=== PATIENT | male | born 1955 | race Caucasian/White ===

== ENCOUNTER → 2019-05-30 08:24 | Outpatient (BNVA) | payer MEDICARE, SELFPAY | PROVIDERS: Family Provider Nurse Practitioner; PCP Nurse Practitioner; Visit Provider Anesthesiology | DX: G89.29 Other chronic pain (principal); M54.41 Lumbago with sciatica, right side; M54.42 Lumbago with sciatica, left side; Z79.891 Long term (current) use of opiate analgesic | CPT/HCPCS: 99213; 99214 ==

== ENCOUNTER → 2019-06-18 07:59 | Outpatient (BNVA) | payer MEDICARE, SELFPAY | PROVIDERS: Family Provider Nurse Practitioner; PCP Nurse Practitioner; Visit Provider Nurse Practitioner | DX: L98.9 Disorder of the skin and subcutaneous tissue, unspecified (principal) | CPT/HCPCS: 88305 ==

== ENCOUNTER → 2019-07-27 08:17 | Outpatient (BNVA) | payer MEDICARE, SELFPAY | PROVIDERS: Family Provider Nurse Practitioner; PCP Nurse Practitioner; Visit Provider Nurse Practitioner | DX: Z76.89 Persons encountering health services in other specified circumstances (principal) | CPT/HCPCS: 99212 ==

== ENCOUNTER 2019-08-27 12:57 | Outpatient (CLI) | payer MEDICARE, SELFPAY ==
--- NOTE | 2019-08-27 12:30 | CT_ITS ---
WS: [id number] CT HEAD TECHNIQUE: Noncontrast and contrast-enhanced CT of the head. CLINICAL INFORMATION: facial edema and caries COMPARISON: CT June 28, 2015 DLP: 1984.[address] scans at [facility] use at least one of these dose optimization techniques: automat ed exposure control; mA and/or kV adjustment per patient size (includes targeted exams where dose is matched to clinical indication); or iterative reconstruction. FINDINGS: No evidence of intracranial hemorrhage or mass effect. Ventricular system and basal cisterns are dias nt. Palpable marker overlying the left frontal calvarium. No evidence of subcutaneous mass or lesion in this location. Mild soft tissue edema involving the left frontal scalp and supraorbital/periorbital soft tissues, le ft greater than right. Recommend correlation for left periorbital cellulitis. Partially visualized et hmoid air cells are well aerated. Mastoid air cells are well aerated. Mild small vessel changes. Mild parenchymal volume loss. Basal cisterns are patent. Fourth ventricle is patent. No abnormal intracranial enhancement. CT/CT head wo/w con [id number] IMPRESSION: 1. Left facial and left greater than right periorbital soft tissue edema likel y due to cellulitis. Recommend clinical correlation. 2. No drainable abscess or fluid collection. 3. Visualized paranasal sinuses are well aerated. 4. Mild small vessel changes with mild parenchymal volume loss.
[2019-08-27 13:42] LABS: Blood Urea Nitrogen 17 mg/dL (8-23); Glomerular Filtration Rate 50.9 mL/min (90-130)
[2019-08-27] MEDS: iodixanol 320 mg/mL 100mL Btl IV (13:55)
== END 2019-08-27 12:58 | disposition home or self-care (01) ==
LOC: RADWPI 13:00
PROVIDERS: Family Provider Nurse Practitioner; PCP Nurse Practitioner; Visit Provider Nurse Practitioner
DX: K02.9 Dental caries, unspecified (principal); R60.0 Localized edema
CPT/HCPCS: 70470; 82565; 84520; 85025; Q9967

== ENCOUNTER → 2019-09-19 09:07 | Outpatient (BNVA) | payer MEDICARE, SELFPAY | PROVIDERS: Family Provider Nurse Practitioner; PCP Nurse Practitioner; Visit Provider Nurse Practitioner | DX: G89.29 Other chronic pain (principal); M54.41 Lumbago with sciatica, right side; M54.42 Lumbago with sciatica, left side; F17.210 Nicotine dependence, cigarettes, uncomplicated; Z79.891 Long term (current) use of opiate analgesic | CPT/HCPCS: 99213 ==

== ENCOUNTER 2019-10-12 18:17 | Inpatient (IN) | payer MEDICARE, SELFPAY ==
[2019-10-12 18:29] VITALS: BP 122/74; PULSE 81; RESP 18; TEMP 37.1; O2SAT 98; BMI 26.7
[2019-10-12 20:15] LABS: Basophils % 0.3 %; Eosinophils # 0.4 10^3/uL (0.0-0.8); Eosinophils % 5.3 %; Hematocrit 45.5 % (42.0-52.0); Hemoglobin 15.1 g/dL (11.7-16.6); Lymphocytes # 1.9 10^3/uL (0.8-4.8); Lymphocytes % 27.7 %; Mean Corpuscular HGB Conc 33.2 g/dL (30.0-36.0); Mean Corpuscular Hemoglobin 30.2 pg (28.0-34.0); Mean Platelet Volume 10.2 fL (7.4-10.4); Monocytes # 0.3 10^3/uL (0.2-0.9); Monocytes % 4.6 %; Neutrophils # 4.3 10^3/uL (1.8-7.7); Nucleated Red Blood Cells % 0 %; Platelet Count 239 10^3/cmm (130-400)
[2019-10-12 20:33] LABS: Alanine Aminotransferase 16 U/L (0-41); Albumin Level 4.4 g/dL (3.5-5.2); Alkaline Phosphatase 58 IU/L (40-130); Anion Gap 16.3 (5-19); Aspartate Amino Transferase 18 U/L (0-40); Blood Urea Nitrogen 13 mg/dL (8-23); C Reactive Protein 8.1 mg/L (0.0-4.9); Calcium 9.1 mg/dL (8.5-10.5); Carbon Dioxide 27 mmol/L (22-29); Chloride 99 mmol/L (98-107); Glomerular Filtration Rate 50.9 mL/min (90-130); Glucose 98 mg/dL (65-115); Osmolality Calculated 282 mOsm/kg (285-295); Potassium 4.3 mmol/L (3.5-5.1); Sodium 138 mmol/L (136-145); Total Bilirubin 0.4 mg/dL (0.15-1.2); Total Protein 7.4 g/dL (6.6-8.7)
--- NOTE | 2019-10-12 20:48 | W.ED.SKABFB ---
HPI - Skin/Abscess/Foreign Bdy General: Chief complaint: Skin/Abscess/Foreign Body Stated complaint: arm swelling Time Seen by Provider: 10/12/19 20:16 Source: patient Mode of arrival: ambulatory Limitations: no limitations History of Present Illness: HPI narrative: Patient is a very nice 64-year-old male who presents to ED today with complaints of infection to his left arm. Patient tells me he began noticing redness to the left arm this morning. He states he marked the linear area of erythema around 6 AM and it was noted to his mid forearm. By 4 PM it had spread past his elbow and has continued to spread since then. Patient reports his arm feels sore. He did notice a small little spot to his left hand that he believes might be a spider bite. Patient denies fevers, chills, body aches, nausea/vomiting. Onset (ago): hour(s) Tetanus up to date: yes Location: LUE Quality: burning Relieving factors: none Exacerbating factors: none Context: other (possible insect bite) Associated symptoms: Deny chills, fever(s), nausea or vomiting Treatments prior to arrival: none Review of Systems Const: Denies: fever(s), chills, body aches, fatigue or malaise Card: Denies: chest pain Resp: Denies: dyspnea GI: Denies: nausea or vomiting Musc: Reports: extremity pain Skin/Breast: Reports: other (red streaking to L UE) Neuro: Denies: numbness in extremities, weakness in extremities or sensory changes [facility] ED PFSH: Medical History (Updated 10/12/19 @ 20:59 by VANCE Partida) Allergic rhinitis due to pollen Atherosclerotic heart disease of [place] coronary artery without angina pectoris Chronic kidney disease, 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 Chronic obstructive pulmonary disease, unspecified Dyslipidemia Encounter for long-term use of opiate analgesic Essential (primary) hypertension Opioid contract exists Surgical History (Updated 09/27/19 @ 13:42 by Darin Aguilar MD) H/O eye surgery Stented coronary artery Family History Other Cancer Diabetes Social History (Updated 09/27/19 @ 13:17 by Sierra Mason RN) Smoking and tobacco status: current every day smoker Quit status (tobacco): has quit using tobacco Former quit date comment: AUGUST 2019 Second hand smoke exposure: Yes Smoking risk assessment/counseling performed?: Yes Alcohol intake: never Desire information about alcohol rehabilitation?: No Counseling given: No Desire information about substance/drug rehabilitation?: No Counseling given: No Adopted: No Caregiver/support person: No Lives independently: Yes Household members: significant other and children Housing: House Marital status: / service: No Current occupational status: disabled History of recent travel: No Current gender identity: Male Physical Exam Const: COMMON NORMALS: no acute distress, average body habitus, patient oriented x3, no limitations, healthy appearing, alert and well nourished Resp: COMMON NORMALS: normal respiratory effort and clear to auscultation bilaterally AUSCULTATION: clear to auscultation bilaterally Cardio: COMMON NORMALS: regular rate and regular rhythm RATE: regular rate RHYTHM: regular rhythm Extremity: OTHER: pt with small puncture li to L hand that could represent insect/spider bite; pt has lymphangitis streaking up his arm almost to the axilla Neuro: COMMON NORMALS: patient oriented x3 SENSORIUM/ORIENTATION: Yes alert Course Consultations: Consultation #1: Dr. Berumen-recommended adding Zosyn to the Vanc and will admit to obs due to rapid progession of lymphangitis Vital Signs: Vital signs: Vital Signs Temperature 98.8 F 10/12/19 18:29 Pulse Rate 81 10/12/19 18:29 Respiratory Rate 18 10/12/19 18:29 Blood Pressure 122/74 10/12/19 18:29 Pulse Oximetry 98 10/12/19 18:29 MDM - Skin/Abscess/Foreign Bdy MDM Narrative: Medical decision making narrative: Although patient is not tachycardic or febrile and has no leukocytosis, he has extremely rapid spread of his lymphangitis-area is almost already to his axilla in 15 hours; spoke to hospitalist who will admit patient; he is requesting CT of the extremity to rule out gas forming bacteria Lab Data: Labs: Lab Results 10/12/19 10/12/19 10/12/19 Range/Units 20:03 20:03 20:03 WBC 7.0 (4.0-10.0) 10^3/ uL RBC 5.00 (4.1-5.3) 10^6/u L Hgb 15.1 (11.7-16.6) g/dL Hct 45.5 (42.0-52.0) % MCV 91.0 (80-94) fL MCH 30.2 (28.0-34.0) pg MCHC 33.2 (30.0-36.0) g/dL RDW 13.0 (12.1-15.1) % Plt Count 239 (130-400) 10^3/c mm MPV 10.2 (7.4-10.4) fL Neut % (Auto) 62.0 % Lymph % (Auto) 27.7 % Stephenson % (Auto) 4.6 % Eos % (Auto) 5.3 % Baso % (Auto) 0.3 % Neut # (Auto) 4.3 (1.8-7.7) 10^3/u L Lymph # (Auto) 1.9 (0.8-4.8) 10^3/u L Stephenson # (Auto) 0.3 (0.2-0.9) 10^3/u L Eos # (Auto) 0.4 (0.0-0.8) 10^3/u L Baso # (Auto) 0.0 (0.0-0.1) 10^3/u L Nucleated RBC % (a uto) 0 % Nucleated RBCs # 0.0 /100WBC Sodium 138 (136-145) mmol/L Potassium 4.3 (3.5-5.1) mmol/L Chloride 99 (98-107) mmol/L Carbon Dioxide 27 (22-29) mmol/L Anion Gap 16.3 (5-19) BUN 13 (8-23) mg/dL Creatinine 1.4 H (0.7-1.2) mg/dL GFR Calculation 50.9 L (90-130) mL/min Glucose 98 (65-115) mg/dL Calculated Osmolal ity 282 L (285-295) mOsm/k g Lactic Acid (Sepsi s) 1.0 (0.5-2.2) mmol/L Calcium 9.1 (8.5-10.5) mg/dL Total Bilirubin 0.4 (0.15-1.2) mg/dL AST 18 (0-40) U/L ALT 16 (0-41) U/L Alkaline Phosphata se 58 (40-130) IU/L C-Reactive Protein 8.1 H (0.0-4.9) mg/L Total Protein 7.4 (6.6-8.7) g/dL Albumin 4.4 (3.5-5.2) g/dL Globulin 3.0 (1.3-4.6) g/dL Discharge Plan Discharge Patient Disposition: Placed in Observation Clinical Impression: Acute lymphangitis of left upper extremity Condition: Stable Referrals: Anjali Cunha FNP-C [Primary Care Provider] - Coding Level of Care Code ED Security Systems Integrator for Chg Fwd Exam Expanded Problem Focused
--- NOTE | 2019-10-12 21:01 | PM.HP ---
Providers/Chief Complaint Primary Care Provider: Anjali Cunha, MUSIC AGENT-C Chief Complaint: arm swelling History of Present Illness Woodrow Shafer is a 64 year old male who carries history of coronary disease status post 4 stent, chronic kidney disease stage II, COPD, opioid dependence, hypertension, no history of diabetes came in after noticing progress redness of his arm. Patient is stating that today he woke up around 6:30 AM and noticed swelling of his left wrist with red streaks extending up to midportion of forearm, he noticed pruritus with that as well. There is a small bite li at dorsum of his left hand. He thinks it was a spider bite. Around 4:30 PM the red streaks progressed and extended beyond his left elbow at that time he made decision to come to the ED. He did not notice any fever, nausea, vomiting, chills. Diagnostics in the ER revealed normal white count normal lactic acid, I have requested CT of his left arm to rule out gas gangrene, necrotizing fasciitis because of progressive cellulitis Started him on vancomycin and Zosyn, blood cultures received Review of records: Multiple visits to the PCP for dental caries, eyebrow swelling, progressing towards his forehead, 08/27/2019 CT head was done which showed left facial and periorbital soft tissue edema without cellulitis no collection of drainable abscess. He finished 7 days of Bactrim. For his back pain he saw a chiropractor who did not recommend trigger injections because of his Plavix use. He has seen Dr. Aguilar who did not modify his medications Review of Systems Const: Reports: chills; Denies: fever(s), body aches, fatigue or malaise Eyes: Denies: change in vision ENMT: Denies: throat pain Card: Denies: chest pain Resp: Denies: dyspnea GI: Denies: abdominal pain : Denies: flank pain Musc: Denies: neck pain Skin/Breast: Reports: skin pain, skin tenderness, skin swelling, sores, changing lesions, dry skin and striae Neuro: Denies: headache(s) Psych: Denies: anxiety or depression Endo: Denies: polyuria or cold intolerance Jose Angel/Lymph: Denies: easy bruising All/Imm: Denies: urticaria Medications/Allergies Home Medications Medication Instructions Recorded Confirmed Last Taken Type celecoxib 200 mg capsule 200 mg PO QDAY #90 cap 05/19/19 09/27/19 Unknown Rx citalopram 20 mg tablet 20 mg PO .at bedtime #90 tab 05/19/19 09/27/19 Unknown Rx clopidogrel 75 mg tablet 75 mg PO QDAY #90 tab 05/19/19 09/27/19 Unknown Rx epinephrine 0.3 mg/0.3 mL 0.3 mg IM ONCE PRN #2 each 05/19/19 09/27/19 Unknown Rx injection, auto-injector fenofibrate nanocrystallized 145 145 mg PO QDAY #90 tab 05/19/19 09/27/19 Unknown Rx mg tablet metoprolol tartrate 25 mg tablet 12.5 mg PO BID #90 tab 05/19/19 09/27/19 Unknown Rx trazodone 100 mg tablet 100 mg PO .at bedtime #90 tab 05/19/19 09/27/19 Unknown Rx bupropion HCl 150 mg 24 hr tablet, 150 mg PO QAM 05/30/19 09/27/19 Unknown History extended release rosuvastatin 40 mg tablet 40 mg PO QDAY 05/30/19 09/27/19 Unknown History chlorhexidine gluconate 0.12 % 15 ml BUCCAL BID #473 ml 07/02/19 09/27/19 Unknown Rx mouthwash gabapentin 600 mg tablet 600 mg PO BID #180 tab 07/27/19 09/27/19 Unknown Rx nitroglycerin 0.4 mg sublingual 0.4 mg SUBLINGUAL Q5M PRN 90 Days 09/05/19 09/27/19 Unknown Rx tablet #25 tab baclofen 20 mg tablet 10 mg PO BID PRN #90 tab 09/19/19 09/27/19 Unknown Rx hydrocodone 5 mg-acetaminophen 325 1 tab PO .5 TIMES DAILY PRN 30 09/19/19 09/27/19 Unknown Rx mg tablet Days #150 tab hydrocodone 5 mg-acetaminophen 325 1 tab PO .5 times a day PRN 30 09/19/19 09/27/19 Unknown Rx mg tablet Days #150 tab sildenafil 50 mg tablet 50 mg PO QDAY PRN #10 tab 09/19/19 09/27/19 Unknown Rx Allergies Allergy/AdvReac Type Severity Reaction Status Date / Time venom-wasp Allergy swelling Verified 09/27/19 13:16 PFSH Acute PFSH: Medical History (Updated 10/12/19 @ 22:29 by Ramin Berumen MD) Allergic rhinitis due to pollen Atherosclerotic heart disease of [place] coronary artery without angina pectoris Chronic kidney disease, 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 Chronic obstructive pulmonary disease, unspecified Dyslipidemia Encounter for long-term use of opiate analgesic Essential (primary) hypertension Opioid contract exists Surgical History (Updated 10/12/19 @ 22:29 by Ramin Berumen MD) H/O eye surgery Stented coronary artery Status post for stent Family History Other Cancer Diabetes Social History Smoking and tobacco status: current every day smoker Quit status (tobacco): has quit using tobacco Former quit date comment: AUGUST 2019 Second hand smoke exposure: Yes Smoking risk assessment/counseling performed?: Yes Alcohol intake: never Desire information about alcohol rehabilitation?: No Counseling given: No Desire information about substance/drug rehabilitation?: No Counseling given: No Adopted: No Caregiver/support person: No Lives independently: Yes Household members: significant other and children Housing: House Marital status: / service: No Current occupational status: disabled History of recent travel: No Current gender identity: Male Vitals/I&O/Wt Last Vital Signs Temp 98.8 F 10/12/19 18:29 Pulse 81 10/12/19 18:29 Resp 18 10/12/19 18:29 BP 122/74 10/12/19 18:29 Pulse Ox 98 10/12/19 18:29 Weight last 48 hrs Weight 82.1 kg Physical Exam Narrative: EXAM NARRATIVE: Head to toe examination Elderly male sitting comfortably in his bed Normal hemodynamics Afebrile EOMI, PERRLA Forehead has mild swelling, trace pitting edema, no periorbital swelling or signs of cellulitis Left hand cellulitis dorsal area with a bite li, hyperemic streaks starting from wrist extending up to his left axilla, tender lymph nodes anterior axillary line, skin feels warm mild tenderness around forearm area no active purulent drainage, no dusky appearance, no crepitation noticed able to move his extremities without any vascular compromise Right hand no such plan S1, S2 no tachycardia heart failure Abdomen soft nontender nondistended bowel sound present Neurologically nonfocal exam Appropriate mood and affect Data : 10/12/19 20:03 10/12/19 20:03 Micro: Microbiology 10/12/19 20:03 Blood Culture - Preliminary Blood SPECIMEN COLLECTED 10/12/19 20:06 Blood Culture - Preliminary Blood SPECIMEN COLLECTED A&P Assessment and plan (1) Acute lymphangitis of left upper extremity: Lymphangitis likely streptococcal I do not see any purulent drainage, Progressive cellulitis Would start him on vancomycin and Zosyn I do believe that these are early signs of progressive cellulitis, in order to prevent systemic signs he would need IV antibiotics and prolonged stay in the hospital because streptococcal infection can lead to necrotizing fasciitis if stays untreated Blood cultures obtained, no active systemic signs for now CT scan of forearm requested Status: Acute (2) Cellulitis: Nonpurulent On antibiotics without systemic signs Likely streptococcal infection Of note, he was recently treated for periorbital cellulitis when he experienced eyebrow swelling which progressed towards his forehead, previous CT scan did not reveal any drainable abscess Status: Acute (3) Nicotine dependence: Patient has quit smoking starting today, he is not requesting nicotine replacement therapy for now Status: Acute Attestations Medical Necessity Statement*: Anticipating stay in the hospital cross more than 2 midnights currently needs IV antibiotics because of progressive cellulitis to prevent progression to necrotizing fascitis Time Spent in Patient Care: (>than 50% of time spent in counselling and/or direct pt care on unit). 60 Coding Level of Care Code Acute Equipment Maintenance Superintendent for Ju Harper Diagnoses Acute lymphangitis of left upper extremity L03.124 Cellulitis L03.90 Nicotine dependence F17.200
--- NOTE | 2019-10-12 21:02 | CTR_ITS ---
PROCEDURE INFORMATION: Exam: CT Left Upper Extremity Without Contrast, Forearm Exam date and time: 10/12/2019 9:11 PM Age: 64 years old Clinical indication: Swelling; Arm, lower and wrist; Left; Additional info: Need from hand/wrist to elbow TECHNIQUE: Imaging protocol: CT of the Left upper extremity without contrast was performed. Exam focused on the forearm. Radiation optimization: All CT scans at this facility use at least one of these dose optimization techniques: automated exposure control; mA and/or kV adjustment per patient size (includes targeted exams where dose is matched to clinical indication); or iterative reconstruction. COMPARISON: No relevant prior studies available. FINDINGS: Bones/joints: Normal. No acute fracture or dislocation. Soft tissues: Subcutaneous strandy opacities are seen in the dependent portion of the left forearm likely represents some mild dependent edema. Some low attenuation surrounds the long flexor tendons of the left wrist within the carpal tunnel. A mild tendinitis cannot be excluded. CT/CT wrist LT wo con* [id number] IMPRESSION: 1. Some fluid attenuation seen within the tendon sheath of the long flexor tendons of the left wrist within the carpal tunnel, findings could represent tendonitis. 2. Some subtle subcutaneous edema is seen in the dependent portion of the forearm. TDLP: 961.87 mGy-cm Radiation Dose CTDIVOL = (mGy): DLP = 961.87 (mGy-cm)
[2019-10-12] MEDS: piperacillin-tazobactam 3.375 GM in sodium chloride 0.9% (plus) 50 ML IV (22:23)
[2019-10-12] MEDS: vancomycin 1,000 MG in sodium chloride 0.9% 250 ML 250 MG IV (22:29)
[2019-10-12 22:39] VITALS: BP 108/63; PULSE 64; RESP 16; O2SAT 94
[2019-10-12 23:12] VITALS: BP 117/69; PULSE 75; RESP 16; O2SAT 93
[2019-10-13] VITALS (8 sets, daily range): BP systolic 93–113; BP diastolic 54–67; PULSE 53–64; RESP 16–18; TEMP 36.1–36.9; O2SAT 95–99
--- NOTE | 2019-10-13 00:28 | PC.PHAR ---
Vancomycin is dosed at 1500mg IVPB every 24 hours to produce a predicted trough level of 12.37 (population based pharmacokineti analysis). A trough level has been ordered from the lab to be obtained before the fourth dose to confirm and adjust if needed. The Zosyn is dosed at 3.375gm IVPB every 8 hours, each dose to be infused over 4 hours per extended infusion protocol.
[2019-10-13] MEDS: diphenhydrAMINE 25 mg Capsule PO (00:40)
[2019-10-13] MEDS: heparin 5,000 unit/mL INJ 1 mL 5000 UNIT SUBCUT ×3 (00:40→17:26)
[2019-10-13] MEDS: HYDROcodone-acetaminophen 5-325 mg Tablet 1 TAB PO ×2 (00:41→08:29)
[2019-10-13 01:12] LABS: Estmated Average Glucose 117; Hemoglobin A1C 5.7 % (4.0-6.0)
[2019-10-13 05:27] LABS: Basophils % 0.2 %; Eosinophils # 0.4 10^3/uL (0.0-0.8); Eosinophils % 7.2 %; Hematocrit 42.2 % (42.0-52.0); Lymphocytes # 1.7 10^3/uL (0.8-4.8); Lymphocytes % 32.2 %; Mean Corpuscular HGB Conc 33.2 g/dL (30.0-36.0); Mean Corpuscular Hemoglobin 30.6 pg (28.0-34.0); Mean Corpuscular Volume 92.1 fL (80-94); Mean Platelet Volume 10.9 fL (7.4-10.4); Monocytes # 0.4 10^3/uL (0.2-0.9); Monocytes % 6.6 %; Neutrophils # 2.8 10^3/uL (1.8-7.7); Neutrophils % 53.6 %; Nucleated Red Blood Cells % 0 %; Platelet Count 227 10^3/cmm (130-400); Red Blood Count 4.58 10^6/uL (4.1-5.3); Red Cell Distribution Width 13.2 % (12.1-15.1); White Blood Count 5.3 10^3/uL (4.0-10.0)
[2019-10-13] MEDS: buPROPion XL (24 HR) 150 mg Tablet PO (05:58)
[2019-10-13] MEDS: piperacillin-tazobactam 3.375 GM in sodium chloride 0.9% (plus) 50 ML IV ×3 (05:58→21:03)
[2019-10-13 06:11] LABS: C Reactive Protein 10.7 mg/L (0.0-4.9)
[2019-10-13 06:13] LABS: Anion Gap 16.1 (5-19); Blood Urea Nitrogen 13 mg/dL (8-23); Calcium 8.7 mg/dL (8.5-10.5); Carbon Dioxide 25 mmol/L (22-29); Chloride 102 mmol/L (98-107); Glomerular Filtration Rate 50.9 mL/min (90-130); Glucose 108 mg/dL (65-115); Osmolality Calculated 285 mOsm/kg (285-295); Potassium 4.1 mmol/L (3.5-5.1); Sodium 139 mmol/L (136-145)
[2019-10-13] MEDS: clopidogrel 75 mg Tablet PO (08:29)
[2019-10-13] MEDS: gabapentin 300 mg Capsule 600 MG PO ×2 (08:29→17:26)
[2019-10-13] MEDS: sennosides-docusate Tablet 1 TAB PO (08:30)
[2019-10-13] MEDS: metoprolol tartrate 25 mg Tablet 12.5 MG PO (08:30)
--- NOTE | 2019-10-13 16:25 | P.PN_ITS ---
Subjective Subjective: Interval history: Afebrile, hemodynamically stable, no leukocytosis. Noted bradycardia so will hold BB. Resting in bed, reports intermittent itching and some discomfort and redness persists. Requested nursing staff to demarcate erythema for progression. Patient able to form a fist, move his wrist unrestricted, denies any numbness or tingling in his left arm. Medications: Reviewed: Yes Medication Review Details: Active Medications Generic Name Dose Route Start Last Admin Trade Name Freq PRN Reason Stop Dose Admin Hydrocodone Bitart /Acetaminophen 1 tab 10/13/19 00:06 10/13/19 08:29 [place] 5-325 Mg PO 1 tab Q6H PRN Administration pain Bupropion HCl 150 mg 10/13/19 06:00 10/13/19 05:58 Wellbutrin Xl (2 4 Hr) PO 150 mg QAM CHRIS Administration Clopidogrel Bisulf ate 75 mg 10/13/19 00:06 10/13/19 08:29 Plavix PO 75 mg DAILY CHRIS Administration Gabapentin 600 mg 10/13/19 09:00 10/13/19 08:29 Neurontin PO 600 mg BID CHRIS Administration Heparin Sodium (Be ef Lung) 5,000 unit 10/13/19 00:06 10/13/19 08:31 Heparin SUBCUT 5,000 unit Q8H CHRIS Administration Piperacillin Sod/T azobactam 50 mls @ 12.5 mls /hr 10/13/19 05:00 10/13/19 14:45 Sod 3.375 gm/ So dium Chloride IV 12.5 mls/hr Q8H CHRIS Administration Protocol As Directed Vancomycin HCl 1,5 00 mg/ 250 mls @ 250 mls /hr 10/13/19 11:00 10/13/19 11:20 Sodium Chloride IV 250 mls/hr Q24H CHRIS Administration Protocol As Directed Metoprolol Tartrat e 12.5 mg 10/13/19 09:00 10/13/19 08:30 Lopressor PO 12.5 mg BID CHRIS Administration Senna/Docusate Sod ium 1 tab 10/13/19 09:00 10/13/19 08:30 Senna-S PO 1 tab DAILY CHRIS Administration venom-wasp Allergy (Verified 09/27/19 13:16) swelling Vitals/I&O/Wt Last Vital Signs Temp 97.8 F 10/13/19 15:12 Pulse 58 L 10/13/19 15:12 Resp 18 10/13/19 15:12 BP 102/60 10/13/19 15:12 Pulse Ox 97 10/13/19 15:12 10/13/19 10/13/19 10/13/19 06:59 14:59 22:59 Intake Total 100 / 100 710 / 710 Balance 100 / 100 710 / 710 Weight last 48 hrs Weight 82.1 kg Physical Exam Const: COMMON NORMALS: no acute distress, patient oriented x3 and alert GENERAL APPEARANCE: cooperative and comfortable ORIENTATION/CONSCIOUSNESS: Yes awake HENMT: COMMON NORMALS: normocephalic, atraumatic, hearing grossly normal bilaterally and moist oral mucous membranes HEAD & SCALP: normocephalic and atraumatic TEETH & GINGIVA: Yes caries and Yes poor dentition Eye: COMMON NORMALS: Equal, round and reactive pupils present, EOMs intact bilaterally and conjunctivae normal CONJUNCTIVA: Yes conjunctivae normal PUPIL: Yes Equal, round and reactive pupils present Neck/C-Spine: COMMON NORMALS: full ROM GENERAL: Yes normal visual inspection and Yes trachea midline Chest: CHEST: Yes Symmetrical chest wall rise Resp: COMMON NORMALS: normal respiratory effort, No retractions, No use of accessory muscles and clear to auscultation bilaterally EFFORT & INSPECTION: Yes able to speak in complete sentences, Yes symmetric chest movement and No tachypneic AUSCULTATION: clear to auscultation bilaterally OTHER: -on RA Cardio: COMMON NORMALS: regular rate, regular rhythm, S1 normal heart sound present, S2 normal heart sound present and No murmurs present (Cardio) RATE: regular rate RHYTHM: regular rhythm HEART SOUNDS: S1 normal heart sound present and S2 normal heart sound present GI: COMMON NORMALS: Normal to inspection, nondistended, normoactive bowel sounds present, Soft to palpation and non-tender INSPECTION: Yes central obesity PALPATION: Yes Soft to palpation Extremity: COMMON NORMALS: normal to inspection, full ROM, no clubbing, cyanosis or edema and no pedal edema NARRATIVE EXTREMITY EXAM: -LUE: distinctive erythema and streaking extending from wrist to just below axilla, warm to touch, blanchable erythema, very small puncture sites just distal to medial wrist, no fluctuance. ROM and gross sensation intact. Neuro: COMMON NORMALS: patient oriented x3, moves all extremities, no focal motor deficits, no sensory deficits noted and gait normal SENSORIUM/ORIENTATION: Yes alert Psych: COMMON NORMALS: mental status grossly normal, Normal thought process present, cooperative, normal affect and speech normal SPEECH: Yes normal speech THOUGHT PROCESS: Normal thought process present Skin: COMMON NORMALS: no rashes or lesions noted, no jaundice, no petechiae and no mottling GENERAL SKIN EXAM: no rashes or lesions noted Data : 10/13/19 04:13 10/13/19 04:13 Micro: Microbiology 10/12/19 20:03 Blood Culture - Preliminary Blood SPECIMEN COLLECTED 10/12/19 20:06 Blood Culture - Preliminary Blood SPECIMEN COLLECTED A&P Assessment and plan (1) Acute lymphangitis of left upper extremity: -likely triggered by insect bite -no leukocytosis, afebrile -tendonitis without abscess on CT -pain control as needed -continue IV Vanc/Zosyn -f/u blood cx -neurovascular checks Status: Acute (2) Cellulitis: -noted on LUE -as noted above Status: Acute Qualifiers: Laterality: left Site of cellulitis: extremity Site of cellulitis of extremity: upper extremity Qualified Code(s): L03.114 - Cellulitis of left upper limb (3) Dyslipidemia: -hold statin Status: Chronic (4) Essential (primary) hypertension: -VSS, continue to monitor vital signs Status: Chronic (5) Chronic obstructive pulmonary disease, unspecified: -not oxygen dependent at baseline Status: Chronic Qualifiers: COPD type: unspecified COPD Qualified Code(s): J44.9 - Chronic obstructive pulmonary disease, unspecified (6) Chronic kidney disease, stage 2 (mild): -mild superimposed SARAH -baseline Cr around 1 -continue to monitor renal function, avoid nephrotoxins, renally dose meds Status: Chronic (7) Atherosclerotic heart disease of [place] coronary artery without angina pectoris: -hold BB due to bradycardia -on Plavix Status: Chronic Qualifiers: [place] vs. transplanted heart: [place] heart Qualified Code(s): I25.10 - Atherosclerotic heart disease of [place] coronary artery without angina pectoris (8) Chronic midline low back pain with bilateral sciatica: -pain control as needed Status: Chronic Additional A&P Information -Chronic smoker -DVT ppx with heparin -Dispo: home -Code status: FULL code Attestations Medical Necessity Statement*: Patient requires hospitalization for continued IV antibiotic treatment for left upper extremity cellulitis and acute lymphangitis. Time Spent in Patient Care: Greater than 35 minutes (>than 50% of time spent in counselling and/or direct pt care on unit) . Coding Level of Care Code Acute Bench Worker Binding for [place] Fwd Exam Comprehensive Diagnoses Acute lymphangitis of left upper extremity L03.124 Cellulitis L03.114 Laterality: left Site of cellulitis: extremity Site of cellulitis of extremity: upper extremity Dyslipidemia E78.5 Essential (primary) hypertension I10 Chronic obstructive pulmonary disease, unspecified J44.9 COPD type: unspecified COPD Chronic kidney disease, stage 2 (mild) N18.2 Atherosclerotic heart disease of [place] coronary artery without angina pectoris I25.10 [place] vs. transplanted heart: [place] heart Chronic midline low back pain with bilateral sciatica M54.41; M54.42; G89.29
[2019-10-14] MEDS: heparin 5,000 unit/mL INJ 1 mL 5000 UNIT SUBCUT ×3 (02:46→15:23)
[2019-10-14 03:39] VITALS: BP 118/67; PULSE 56; RESP 20; TEMP 37.2; O2SAT 98
[2019-10-14 04:29] LABS: Basophils % 0.2 %; Eosinophils # 0.3 10^3/uL (0.0-0.8); Eosinophils % 6.8 %; Hematocrit 41.2 % (42.0-52.0); Hemoglobin 13.7 g/dL (11.7-16.6); Lymphocytes # 1.7 10^3/uL (0.8-4.8); Lymphocytes % 35.7 %; Mean Corpuscular HGB Conc 33.3 g/dL (30.0-36.0); Mean Corpuscular Hemoglobin 30.4 pg (28.0-34.0); Mean Corpuscular Volume 91.6 fL (80-94); Mean Platelet Volume 10.9 fL (7.4-10.4); Monocytes # 0.3 10^3/uL (0.2-0.9); Monocytes % 5.9 %; Neutrophils # 2.4 10^3/uL (1.8-7.7); Neutrophils % 51.2 %; Nucleated Red Blood Cells % 0 %; Platelet Count 185 10^3/cmm (130-400); Red Cell Distribution Width 12.9 % (12.1-15.1); White Blood Count 4.7 10^3/uL (4.0-10.0)
[2019-10-14 04:49] LABS: Anion Gap 15.4 (5-19); Blood Urea Nitrogen 18 mg/dL (8-23); Calcium 8.7 mg/dL (8.5-10.5); Carbon Dioxide 24 mmol/L (22-29); Chloride 105 mmol/L (98-107); Glomerular Filtration Rate 50.9 mL/min (90-130); Glucose 98 mg/dL (65-115); Osmolality Calculated 286 mOsm/kg (285-295); Potassium 4.4 mmol/L (3.5-5.1); Sodium 140 mmol/L (136-145)
[2019-10-14] MEDS: piperacillin-tazobactam 3.375 GM in sodium chloride 0.9% (plus) 50 ML IV ×3 (05:52→21:27)
[2019-10-14] MEDS: buPROPion XL (24 HR) 150 mg Tablet PO (05:52)
[2019-10-14 07:43] VITALS: BP 109/74; PULSE 59; RESP 18; TEMP 36.6; O2SAT 96
[2019-10-14] MEDS: gabapentin 300 mg Capsule 600 MG PO ×2 (08:28→17:39)
[2019-10-14] MEDS: sennosides-docusate Tablet 1 TAB PO (08:28)
[2019-10-14] MEDS: clopidogrel 75 mg Tablet PO (08:29)
[2019-10-14 11:05] VITALS: BP 108/63; PULSE 67; RESP 18; TEMP 36.7
--- NOTE | 2019-10-14 13:58 | P.PN_ITS ---
Subjective Subjective: Interval history: Hemodynamically stable, afebrile, no leukocytosis, had 1300 mL urine output overnight, stable renal function. Redness has receded within demarcated area though streaking still extends over entire arm. Denies pain, numbness/tingling, able to move arm and wrist without difficulty. Medications: Reviewed: Yes Medication Review Details: Active Medications Generic Name Dose Route Start Last Admin Trade Name Freq PRN Reason Stop Dose Admin Hydrocodone Bitart /Acetaminophen 1 tab 10/13/19 00:06 10/13/19 08:29 [place] 5-325 Mg PO 1 tab Q6H PRN Administration pain Bupropion HCl 150 mg 10/13/19 06:00 10/14/19 05:52 Wellbutrin Xl (2 4 Hr) PO 150 mg QAM CHRIS Administration Clopidogrel Bisulf ate 75 mg 10/13/19 00:06 10/14/19 08:29 Plavix PO 75 mg DAILY CHRIS Administration Gabapentin 600 mg 10/13/19 09:00 10/14/19 08:28 Neurontin PO 600 mg BID CHRIS Administration Heparin Sodium (Be ef Lung) 5,000 unit 10/13/19 00:06 10/14/19 08:29 Heparin SUBCUT 5,000 unit Q8H CHRIS Administration Piperacillin Sod/T azobactam 50 mls @ 12.5 mls /hr 10/13/19 05:00 10/14/19 05:52 Sod 3.375 gm/ So dium Chloride IV 12.5 mls/hr Q8H CHRIS Administration Protocol As Directed Vancomycin HCl 1,5 00 mg/ 250 mls @ 250 mls /hr 10/13/19 11:00 10/14/19 11:21 Sodium Chloride IV 250 mls/hr Q24H CHRIS Administration Protocol As Directed Metoprolol Tartrat e 12.5 mg 10/13/19 09:00 10/13/19 08:30 Lopressor PO 12.5 mg BID CHRIS Administration Senna/Docusate Sod ium 1 tab 10/13/19 09:00 10/14/19 08:28 Senna-S PO 1 tab DAILY CHRIS Administration venom-wasp Allergy (Verified 09/27/19 13:16) swelling Vitals/I&O/Wt Last Vital Signs Temp 98.1 F 10/14/19 11:05 Pulse 67 10/14/19 11:05 Resp 18 10/14/19 11:05 BP 108/63 10/14/19 11:05 Pulse Ox 96 10/14/19 07:43 10/13/19 10/14/19 10/14/19 22:59 06:59 14:59 Intake Total 290 / 1250 50 / 1300 480 / 480 Output Total 600 / 600 1050 / 1650 Balance -310 / 650 -1000 / -350 480 / 480 Weight last 48 hrs Weight 82.1 kg Physical Exam Const: COMMON NORMALS: no acute distress, patient oriented x3 and alert G ENERAL APPEARANCE: cooperative and comfortable ORIENTATION/CONSCIOUSNESS: Yes awake HENMT: COMMON NORMALS: normocephalic, atraumatic, hearing grossly normal bilaterally and moist oral mucous membranes HEAD & SCALP: normocephalic and atraumatic TEETH & GINGIVA: Yes caries and Yes poor dentition Eye: COMMON NORMALS: Equal, round and reactive pupils present, EOMs intact bilaterally and conjunctivae normal CONJUNCTIVA: Yes conjunctivae normal PUPIL: Yes Equal, round and reactive pupils present Neck/C-Spine: COMMON NORMALS: full ROM GENERAL: Yes normal visual inspection and Yes trachea midline Chest: CHEST: Yes Symmetrical chest wall rise Resp: COMMON NORMALS: normal respiratory effort, No retractions, No use of accessory muscles and clear to auscultation bilaterally EFFORT & INSPECTION: Yes able to speak in complete sentences, Yes symmetric chest movement and No tachypneic AUSCULTATION: clear to auscultation bilaterally OTHER: -on RA Cardio: COMMON NORMALS: regular rate, regular rhythm, S1 normal heart sound present, S2 normal heart sound present and No murmurs present (Cardio) RATE: regular rate RHYTHM: regular rhythm HEART SOUNDS: S1 normal heart sound present and S2 normal heart sound present GI: COMMON NORMALS: Normal to inspection, nondistended, normoactive bowel sounds present, Soft to palpation and non-tender INSPECTION: Yes central obesity PALPATION: Yes Soft to palpation Extremity: COMMON NORMALS: normal to inspection, full ROM, no clubbing, cyanosis or edema and no pedal edema NARRATIVE EXTREMITY EXAM: -LUE: distinctive erythema and streaking extending from wrist to just below axilla which is receding and is less apparent today, warm to touch, blanchable erythema, very small puncture sites just distal to medial wrist, no fluctuance. ROM and gross sensation intact. Neuro: COMMON NORMALS: patient oriented x3, moves all extremities, no focal motor deficits, no sensory deficits noted and gait normal SENSORIUM/ORIENTATION: Yes alert Psych: COMMON NORMALS: mental status grossly normal, Normal thought process present, cooperative, normal affect and speech normal SPEECH: Yes normal speech THOUGHT PROCESS: Normal thought process present Skin: COMMON NORMALS: no rashes or lesions noted, no jaundice, no petechiae and no mottling GENERAL SKIN EXAM: no rashes or lesions noted Data : 10/14/19 03:18 10/14/19 03:18 Micro: Microbiology 10/12/19 20:03 Blood Culture - Preliminary Blood NEGATIVE TO DATE 10/12/19 20:06 Blood Culture - Preliminary Blood NEGATIVE TO DATE A&P Assessment and plan (1) Acute lymphangitis of left upper extremity: -likely triggered by insect bite -no leukocytosis, afebrile -tendonitis without abscess on CT -pain control as needed -continue IV Vanc/Zosyn (day 2); clinically improving. If continued improvement, will plan on d/c with Clindamycin -blood cx: prelim negative -neurovascular checks Status: Acute (2) Cellulitis: -noted on LUE -as noted above Status: Acute Qualifiers: Laterality: left Site of cellulitis: extremity Site of cellulitis of extremity: upper extremity Qualified Code(s): L03.114 - Cellulitis of left upper limb (3) Dyslipidemia: -hold statin Status: Chronic (4) Essential (primary) hypertension: -VSS, continue to monitor vital signs Status: Chronic (5) Chronic obstructive pulmonary disease, unspecified: -not oxygen dependent at baseline Status: Chronic Qualifiers: COPD type: unspecified COPD Qualified Code(s): J44.9 - Chronic obstructive pulmonary disease, unspecified (6) Chronic kidney disease, stage 2 (mild): -mild superimposed SARAH -baseline Cr around 1 -continue to monitor renal function, avoid nephrotoxins, renally dose meds Status: Chronic (7) Atherosclerotic heart disease of [place] coronary artery without angina pectoris: -hold BB due to bradycardia -on Plavix Status: Chronic Qualifiers: [place] vs. transplanted heart: [place] heart Qualified Code(s): I25.10 - Atherosclerotic heart disease of [place] coronary artery without angina pectoris (8) Chronic midline low back pain with bilateral sciatica: -pain control as needed Status: Chronic Additional A&P Information -Chronic smoker -DVT ppx with heparin -Dispo: home -Code status: FULL code Attestations Medical Necessity Statement*: Patient requires hospitalization for continued IV antibiotic therapy secondary to left upper extremity cellulitis. Time Spent in Patient Care: 16 - 35 minutes (>than 50% of time spent in counselling and/or direct pt care on unit) . Coding Level of Care Code Acute Pediatric Associate for g Fwd Exam Comprehensive Diagnoses Acute lymphangitis of left upper extremity L03.124 Cellulitis L03.114 Laterality: left Site of cellulitis: extremity Site of cellulitis of extremity: upper extremity Dyslipidemia E78.5 Essential (primary) hypertension I10 Chronic obstructive pulmonary disease, unspecified J44.9 COPD type: unspecified COPD Chronic kidney disease, stage 2 (mild) N18.2 Atherosclerotic heart disease of [place] coronary artery without angina pectoris I25.10 [place] vs. transplanted heart: [place] heart Chronic midline low back pain with bilateral sciatica M54.41; M54.42; G89.29
[2019-10-14 15:22] VITALS: BP 112/66; PULSE 65; RESP 16; TEMP 36.8; O2SAT 93
--- NOTE | 2019-10-14 18:19 | PC.NURSE ---
Shift summary,required zero pain meds this shift, states feeling much better
[2019-10-14 19:12] VITALS: BP 113/64; PULSE 67; RESP 20; TEMP 36.8; O2SAT 93
[2019-10-15] VITALS: BP 112/68; PULSE 59; RESP 18; TEMP 36.8; O2SAT 93
[2019-10-15] MEDS: heparin 5,000 unit/mL INJ 1 mL 5000 UNIT SUBCUT ×2 (00:37→08:06)
[2019-10-15 04:00] VITALS: BP 115/69; PULSE 59; RESP 20; TEMP 36.8; O2SAT 93
[2019-10-15 04:44] LABS: Anion Gap 15.3 (5-19); Blood Urea Nitrogen 12 mg/dL (8-23); Calcium 9.1 mg/dL (8.5-10.5); Carbon Dioxide 25 mmol/L (22-29); Chloride 104 mmol/L (98-107); Glomerular Filtration Rate 50.9 mL/min (90-130); Glucose 94 mg/dL (65-115); Osmolality Calculated 286 mOsm/kg (285-295); Potassium 4.3 mmol/L (3.5-5.1); Sodium 140 mmol/L (136-145)
[2019-10-15] MEDS: buPROPion XL (24 HR) 150 mg Tablet PO (06:30)
[2019-10-15] MEDS: piperacillin-tazobactam 3.375 GM in sodium chloride 0.9% (plus) 50 ML IV (06:31)
[2019-10-15 07:55] VITALS: BP 109/63; PULSE 62; RESP 18; TEMP 36.7; O2SAT 94
[2019-10-15] MEDS: gabapentin 300 mg Capsule 600 MG PO (08:06)
[2019-10-15] MEDS: clopidogrel 75 mg Tablet PO (08:07)
--- NOTE | 2019-10-15 09:17 | PC.RESP ---
Smoking Cessation packet and a schedule of classes sent to patient.
--- NOTE | 2019-10-15 09:33 | P.DS_ITS ---
Discharge Providers Date of Admission: 10/12/19 22:40 Date of Discharge: October 15, 2019 Attending Provider at Admission: Ramin Berumen MD Attending Provider at Discharge: Shelly Perez MD Primary Care Provider: JOHNNY Swanson Diagnoses at Discharge Discharge Diagnosis (1) Acute lymphangitis of left upper extremity: Status: Acute (2) Cellulitis: Status: Acute Qualifiers: Site of cellulitis: extremity Site of cellulitis of extremity: upper extremity Laterality: left Qualified Code(s): L03.114 - Cellulitis of left upper limb (3) Dyslipidemia: Status: Chronic (4) Essential (primary) hypertension: Status: Chronic (5) Chronic obstructive pulmonary disease, unspecified: Status: Chronic Qualifiers: COPD type: unspecified COPD Qualified Code(s): J44.9 - Chronic obstructive pulmonary disease, unspecified (6) Chronic kidney disease, stage 2 (mild): Status: Chronic (7) Atherosclerotic heart disease of [place] coronary artery without angina pectoris: Status: Chronic Qualifiers: [place] vs. transplanted heart: [place] heart Qualified Code(s): I25.10 - Atherosclerotic heart disease of [place] coronary artery without angina pectoris (8) Chronic midline low back pain with bilateral sciatica: Status: Chronic Reason for Visit Reason for Visit: arm swelling Hospital Course Hospital Course: Patient was admitted to the medical surgical floor and s tarted on broad-spectrum IV antibiotics secondary to noted left upper extremity cellulitis with acute lymphangitis. Area of erythema was marked to monitor progression, serial neurovascular checks were done, and patient has remained neurovascularly intact. Area of erythema is improving, he has been afebrile, hemodynamically stable, with no leukocytosis. Renal function has remained stable. Blood culture has been negative. Patient was covered with vancomycin and Zosyn during his hospital stay and will be discharged on clindamycin to complete the treatment course for cellulitis. He is counseled on need to continue to monitor for increased redness, pain, numbness/tingling, decreased range of motion, fever/chills at which point he is to seek medical attention immediately. He will need to follow-up with his primary care provider within 1 week. Discharge Summary: -Patient to follow-up with primary care provider within 1 week Physical Exam Const: COMMON NORMALS: no acute distress, patient oriented x3 and alert GENERAL APPEARANCE: cooperative and comfortable ORIENTATION/CONSCIOUSNESS: Yes awake HENMT: COMMON NORMALS: normocephalic, atraumatic, hearing grossly normal bilaterally and moist oral mucous membranes HEAD & SCALP: normocephalic and atraumatic TEETH & GINGIVA: Yes caries and Yes poor dentition Eye: COMMON NORMALS: Equal, round and reactive pupils present, EOMs intact bilaterally and conjunctivae normal CONJUNCTIVA: Yes conjunctivae normal PUPIL: Yes Equal, round and reactive pupils present Neck/C-Spine: COMMON NORMALS: full ROM GENERAL: Yes normal visual inspection and Yes trachea midline Chest: CHEST: Yes Symmetrical chest wall rise Resp: COMMON NORMALS: normal respiratory effort, No retractions, No use of accessory muscles and clear to auscultation bilaterally EFFORT & INSPECTION: Yes able to speak in complete sentences, Yes symmetric chest movement and No tachypneic AUSCULTATION: clear to auscultation bilaterally OTHER: -on RA Cardio: COMMON NORMALS: regular rate, regular rhythm, S1 normal heart sound present, S2 normal heart sound present and No murmurs present (Cardio) RATE: regular rate RHYTHM: regular rhythm HEART SOUNDS: S1 normal heart sound present and S2 normal heart sound present GI: COMMON NORMALS: Normal to inspection, nondistended, normoactive bowel sounds present, Soft to palpation and non-tender INSPECTION: Yes central ob esity PALPATION: Yes Soft to palpation Extremity: COMMON NORMALS: normal to inspection, full ROM, no clubbing, cyanosis or edema and no pedal edema NARRATIVE EXTREMITY EXAM: -LUE: distinctive erythema and streaking extending from wrist to just below axilla is receding and is less apparent today, warm to touch, blanchable erythema, very small puncture sites just distal to medial wrist, no fluctuance. ROM and gross sensation intact. Neuro: COMMON NORMALS: patient oriented x3, moves all extremities, no focal motor deficits, no sensory deficits noted and gait normal SENSORI UM/ORIENTATION: Yes alert Psych: COMMON NORMALS: mental status grossly normal, Normal thought process present, cooperative, normal affect and speech normal SPEECH: Yes normal speech THOUGHT PROCESS: Normal thought process present Skin: COMMON NORMALS: no rashes or lesions noted, no jaundice, no petechiae and no mottling GENERAL SKIN EXAM: no rashes or lesions noted Discharge Data Data Completed and Pending: Completed Studies During Hospitalization Category Date Time Status CT wrist LT wo co n* [id number] Urgent Cat Scan 10/12/19 21:02 Completed Pending at discharge Category Date Time Status Blood Culture Sta t Lab 10/12/19 20:03 Results Vancomycin Trough Timed Lab 10/16/19 10:00 Ordered Labs from last 24 hours 10/15/19 03:20 Sodium 140 Potassium 4.3 Chloride 104 Carbon Dioxide 25 Anion Gap 15.3 BUN 12 Creatinine 1.4 H GFR Calculation 50.9 L Glucose 94 Calculated Osmolal ity 286 Calcium 9.1 Vitals: Last Vital Signs Temp 98.0 F 10/15/19 07:55 Pulse 62 10/15/19 07:55 Resp 18 10/15/19 07:55 BP 109/63 10/15/19 07:55 Pulse Ox 94 10/15/19 07:55 Discharge Plan Discharge Patient Disposition: Home, Self-Care Condition: Stable Prescriptions: New clindamycin HCl 150 mg capsule 450 mg PO TID 7 Days Qty: 63 RF: 0 Continued rosuvastatin [Crestor] 40 mg tablet 40 mg PO QDAY RF: 0 bupropion HCl 150 mg tablet extended release 24 hr 150 mg PO QAM RF: 0 gabapentin 600 mg tablet 600 mg PO BID Qty: 180 RF: 0 baclofen 20 mg tablet 10 mg PO BID PRN (Reason: muscle spasm) Qty: 90 RF: 0 hydrocodone-acetaminophen 5-325 mg tablet 1 tab PO .5 TIMES DAILY PRN (Reason: pain) 30 Days Qty: 150 RF: 0 trazodone 100 mg tablet 100 mg PO .at bedtime Qty: 90 RF: 1 epinephrine [EpiPen 2-Juan] 0.3 mg/0.3 mL auto-injector 0.3 mg IM ONCE PRN (Reason: anaphylaxis sting) Qty: 2 RF: 1 citalopram [Celexa] 20 mg tablet 20 mg PO .at bedtime Qty: 90 RF: 1 clopidogrel [Plavix] 75 mg tablet 75 mg PO QDAY Qty: 90 RF: 1 fenofibrate nanocrystallized [Tricor] 145 mg tablet 145 mg PO QDAY Qty: 90 RF: 1 chlorhexidine gluconate 0.12 % mouthwash 15 ml BUCCAL BID Qty: 473 RF: 2 nitroglycerin [Nitrostat] 0.4 mg tablet, sublingual 0.4 mg SUBLINGUAL Q5M PRN (Reason: chest pain) 90 Days Qty: 25 RF: 3 sildenafil [Viagra] 50 mg tablet 50 mg PO QDAY PRN (Reason: sexual activity) Qty: 10 RF: 0 aspirin 81 mg Tablet,Delayed Release (Dr/Ec) 81 mg PO DAILY RF: 0 Discontinued metoprolol tartrate 25 mg tablet 12.5 mg PO BID Qty: 90 RF: 1 celecoxib [Celebrex] 200 mg capsule 200 mg PO QDAY Qty: 90 RF: 1 Discharge Orders: Discharge Order (Routine); Ordered 10/15/19 Ordered By: Shelly Perez Referrals: Anjali Cunha, SOCIAL MEDIA MARKETING SPECIALIST-C [Primary Care Provider] - 4-7 days (Post hospital discharge follow up. Treated for LUE cellulitis, on Clindamycin) Discharge Diet: Cardiac Discharge Activity: Increase activity as tolerated Discharge Attestations Time Spent in Discharge Care*: greater than 30 min Specific Discharge Activities: Specific discharge activities: educating patient, discussing with case therapist/social workers/dc planners, documenting/other paperwork and evaluating patient/reviewing data Status at Discharge: Cognitive status at discharge: cognitively intact , Behavioral status at discharge: cooperative , Functional status at discharge: independent ambulation Overall status at discharge: patient is progressing back to baseline Quality Metrics Clinical Quality Measures During this hospital stay, did patient experience: None Coding Level of Care Code Acute Triage Nurse for [place] Diagnoses Acute lymphangitis of left upper extremity L03.124 Cellulitis L03.114 Site of cellulitis: extremity Site of cellulitis of extremity: upper extremity Laterality: left Dyslipidemia E78.5 Essential (primary) hypertension I10 Chronic obstructive pulmonary disease, unspecified J44.9 COPD type: unspecified COPD Chronic kidney disease, stage 2 (mild) N18.2 Atherosclerotic heart disease of [place] coronary artery without angina pectoris I25.10 [place] vs. transplanted heart: [place] heart Chronic midline low back pain with bilateral sciatica M54.41; M54.42; G89.29
--- NOTE | 2019-10-15 09:54 | PC.CHAP ---
Pastoral Care Encounter/Spiritual Assessment Type of Contact [] Declined trick rodeo rider visit [] Patient/Family/Request visit [] Outpatient visit [x] Follow-up visit [] Physician referral [] Code/Alert [x] Routine visit [] Staff referral [] Actively dying [] Patient sleeping [] Family support [] [] Out of room [] Palliative care [] [] Receiving care in room [] Pre-surgical visit [] Trauma [] Long length of stay [] ICU visit [] Other: Relational/Emotional Strength [] Patient feels connected with others/family/visitors/staff [] Distress [] Loneliness/isolation [] Abandonment Spirituality of Patient [] Person of Tati [] Attends Advent of their Tati [] Believes in Prayer [] Reads Bible or Voodoo materials [] There are Spiritual issues to be addressed Vertical Borer Interventions [x] Prayer [] Active listening [] Non-anxious presence [] Spiritual/emotional support [] Crisis/trauma care [] Spiritual counseling [] Bereavement support [] Provided bereavement packet [] Provided Bible/devotional materials [] Provided toy/stuffed animal, coloring book to patient or family member [] Provided Communion [] Anointing/[place] [] Salvation [x] Completed spiritual assessment [] Other: Impact on Illness or Injury [] Angry [] Fearful [] Anxious [] Often cries [] Exhaustion [] Unable to work [] Unable to attend pentecostal [] Unable to walk/stand [] Unable to read [] Unable to drive [] Unable to eat/drink [] Unable to sleep [] Unable to be with family [] Patient intubated [] Other: Summary Swelling down in patients arm. preparing to return home. Patient believes could have been spider bite. Time spent with patient 10 min
[2019-10-15] MEDS: clindamycin 150 mg Capsule 450 MG PO (09:59)
[2019-10-15 10:12] VITALS: BP 109/63; PULSE 62; RESP 18; TEMP 36.7; O2SAT 94
--- NOTE | 2019-10-15 10:31 | PC.SOCIAL ---
IMM Update Pg 2 of IMM given and explained to patient who verbalized understanding. Initialed, dated, and timed and placed in chart. Copy provided.
== END 2019-10-15 11:31 | disposition home or self-care (01) | DRG 603 ==
LOC: ER 20:59 → MEDSURG 22:58
PROVIDERS: Physician Assistant; Admitting Provider Internal Medicine; PCP Nurse Practitioner; Visit Provider Family Medicine
DX: L03.124 Acute lymphangitis of left upper limb (principal); N17.9 Acute kidney failure, unspecified; F11.20 Opioid dependence, uncomplicated; N18.2 Chronic kidney disease, stage 2 (mild); E78.5 Hyperlipidemia, unspecified; J44.9 Chronic obstructive pulmonary disease, unspecified; I12.9 Hypertensive chronic kidney disease with stage 1 through stage 4 chronic kidney disease, or unspecified chronic kidney disease; I25.10 Atherosclerotic heart disease of native coronary artery without angina pectoris; G89.29 Other chronic pain; M54.42 Lumbago with sciatica, left side; M54.41 Lumbago with sciatica, right side; Z79.82 Long term (current) use of aspirin; Z79.02 Long term (current) use of antithrombotics/antiplatelets; R00.1 Bradycardia, unspecified; F17.210 Nicotine dependence, cigarettes, uncomplicated; L03.114 Cellulitis of left upper limb; Z95.5 Presence of coronary angioplasty implant and graft; J30.1 Allergic rhinitis due to pollen
CPT/HCPCS: 12345; 36415; 73200; 80048; 80053; 83036; 83605; 85025; 86140; 87040; 96372; 99283; J1644; J2543; J3370; J7050

== ENCOUNTER → 2019-10-22 10:13 | Outpatient (BNVA) | payer MEDICARE, SELFPAY | PROVIDERS: PCP Nurse Practitioner; Visit Provider Nurse Practitioner | DX: Z95.5 Presence of coronary angioplasty implant and graft (principal); K02.9 Dental caries, unspecified; F41.1 Generalized anxiety disorder; N52.9 Male erectile dysfunction, unspecified | CPT/HCPCS: 80061 ==

== ENCOUNTER → 2019-11-23 09:30 | Outpatient (BNVA) | payer MEDICARE, SELFPAY | PROVIDERS: PCP Nurse Practitioner; Visit Provider Nurse Practitioner Family | DX: J44.1 Chronic obstructive pulmonary disease with (acute) exacerbation (principal); R63.4 Abnormal weight loss; R05 Cough; Z11.59 Encounter for screening for other viral diseases | CPT/HCPCS: 85025; 87635 ==

== ENCOUNTER → 2019-11-28 13:49 | Outpatient (BNVA) | payer MEDICARE, SELFPAY | PROVIDERS: PCP Nurse Practitioner; Visit Provider Nurse Practitioner | DX: R05 Cough (principal) | CPT/HCPCS: 71046 ==

== ENCOUNTER → 2019-12-05 09:21 | Outpatient (BNVA) | payer MEDICARE, SELFPAY | PROVIDERS: PCP Nurse Practitioner; Visit Provider Anesthesiology | DX: G89.29 Other chronic pain (principal); M54.41 Lumbago with sciatica, right side; M54.42 Lumbago with sciatica, left side; M47.22 Other spondylosis with radiculopathy, cervical region; M54.9 Dorsalgia, unspecified; F17.210 Nicotine dependence, cigarettes, uncomplicated; Z79.891 Long term (current) use of opiate analgesic | CPT/HCPCS: 99214 ==

== ENCOUNTER → 2020-02-01 09:32 | Outpatient (BNVA) | payer MEDICARE, SELFPAY | PROVIDERS: PCP Nurse Practitioner; Visit Provider Anesthesiology | DX: G89.29 Other chronic pain (principal); M54.41 Lumbago with sciatica, right side; M54.42 Lumbago with sciatica, left side; M47.22 Other spondylosis with radiculopathy, cervical region; F17.210 Nicotine dependence, cigarettes, uncomplicated; Z79.891 Long term (current) use of opiate analgesic | CPT/HCPCS: 99213; 99214 ==

== ENCOUNTER → 2020-04-03 07:57 | Outpatient (BNVA) | payer MEDICARE, SELFPAY | PROVIDERS: PCP Nurse Practitioner; Visit Provider Anesthesiology | DX: G89.29 Other chronic pain (principal); M54.42 Lumbago with sciatica, left side; M54.41 Lumbago with sciatica, right side; M47.22 Other spondylosis with radiculopathy, cervical region; F17.210 Nicotine dependence, cigarettes, uncomplicated; Z79.891 Long term (current) use of opiate analgesic | CPT/HCPCS: 99213; 99214 ==

== ENCOUNTER 2020-04-19 13:57 | Emergency (ER) | payer MEDICARE, SELFPAY ==
[2020-04-19 14:23] VITALS: BP 130/73; PULSE 80; RESP 18; TEMP 36.9; O2SAT 97; BMI 26.9
--- NOTE | 2020-04-19 14:33 | ED_ITS ---
HPI - General Adult General: Chief complaint: General Medical Stated complaint: RASH/POISON ROBERTO Time Seen by Provider: 04/19/20 14:33 Source: patient Mode of arrival: ambulatory Limitations: no limitations History of Present Illness: HPI narrative: Patient comes in today for concerns of poison roberto exposure. Patient was exposed 3 days ago while cutting wood. Patient noticed swelling around the eyes today. Patient had taken what he thought was prednisone yesterday with minimal relief. Patient appears well. Patient has no respiratory distress. No signs of serious illness or injury is noted. Patient appears in no pain. Associated symptoms: Reports rash Review of Systems General: Reports: 10 or more systems reviewed and unremarkable except in HPI and below Skin/Breast: Reports: rash and pruritus PFSH ED PFSH: Medical History Allergic rhinitis due to pollen Anxiety, generalized Atherosclerotic heart disease of [place] coronary artery without angina pectoris Chronic kidney disease, 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 Chronic obstructive pulmonary disease, unspecified Dyslipidemia Encounter for long-term use of opiate analgesic Essential (primary) hypertension Inability to maintain erection Nicotine dependence Opioid contract exists Personal history of nicotine dependence Surgical History H/O eye surgery Stented coronary artery Status post for stent Family History Other Cancer Diabetes Social History Smoking and tobacco status: current every day smoker Quit status (tobacco): has quit using tobacco Former quit date comment: AUGUST 2019 Second hand smoke exposure: Yes Smoking risk assessment/counseling performed?: Yes Alcohol intake: never Desire information about alcohol rehabilitation?: No Counseling given: No Desire information about substance/drug rehabilitation?: No Counseling given: No Adopted: No Caregiver/support person: No Lives independently: Yes Household members: significant other and children Housing: House Marital status: / service: No Current occupational status: disabled History of recent travel: No Current gender identity: Male Physical Exam Const: COMMON NORMALS: no acute distress and patient oriented x3 GENERAL APPEARANCE: cooperative HENMT: COMMON NORMALS: Normal external nose present HEAD & SCALP: other (Facial swelling especially around the left periorbital area with some mild ) NOSE: Normal external nose present MOUTH: Normal oral and palatal mucosa present THROAT: posterior oropharynx normal Eye: GENERAL EYE: appearance normal, both eyes and all related structures Neck/C-Spine: COMMON NORMALS: full ROM Chest: COMMONS NORMALS: normal inspection of the chest Resp: COMMON NORMALS: normal respiratory effort EFFORT & INSPECTION: Yes able to speak in complete sentences Cardio: COMMON NORMALS: regular rate and regular rhythm RATE: regular rate RHYTHM: regular rhythm GI: COMMON NORMALS: non-tender Back/Pelvis: COMMON NORMALS: thoracic and lumbar spine normal to inspection Extremity: COMMON NORMALS: normal to inspection Neuro: COMMON NORMALS: patient oriented x3 and moves all extremities Psych: COMMON NORMALS: mental status grossly normal and cooperative Skin: NARRATIVE SKIN EXAM: Patient has a red raised rash to the upper extremities, face, and upper chest and back. Course Vital Signs: Vital signs: Vital Signs Temperature 98.5 F 04/19/20 14:23 Pulse Rate 80 04/19/20 14:23 Respiratory Rate 18 04/19/20 14:23 Blood Pressure 130/73 04/19/20 14:23 Pulse Oximetry 97 04/19/20 14:23 MDM - General Adult MDM Narrative: Medical decision making narrative: Patient comes in today for rash to the face, upper chest and back, and upper extremities. Skin was warm and dry. Respirations were even. Airway was open. No signs of oral swelling was noted. Differential diagnosis includes contact dermatitis, cellulitis, angioedema. No signs of significant distress or swelling is noted except around the left thigh. No heat no fever was noted no signs of infection. Patient does report prior problems with poison roberto. Exam appears to be contact dermatitis due to poison roberto. Patient was treated with steroids recommended to follow-up as needed. Patient reported understanding. Discharge Plan Discharge Patient Disposition: Home Clinical Impression: Contact dermatitis and eczema due to plant Condition: Stable Prescriptions: New prednisone 20 mg tablet 20 mg PO BID 10 Days Qty: 20 RF: 0 hydroxyzine HCl 25 mg tablet 25 mg PO Q6H PRN (Reason: itching) Qty: 30 RF: 0 No Action albuterol sulfate [ProAir HFA] 90 mcg/actuation HFA aerosol inhaler 2 puff INHALATION QID PRN (Reason: shortness of breath or wheezing) 30 Days Qty: 6.7 RF: 2 azelastine 137 mcg (0.1 %) aerosol,spray 1 spray INTRANASAL BID Qty: 30 RF: 2 mometasone [Nasonex] 50 mcg/actuation spray,non-aerosol 2 spray INTRANASAL BID Qty: 17 RF: 2 chlorhexidine gluconate 0.12 % mouthwash 15 ml BUCCAL BID Qty: 473 RF: 2 atorvastatin 40 mg tablet 40 mg PO DAILY Qty: 90 RF: 3 ketoconazole 2 % cream 1 applic TOPICAL .at bedtime Qty: 60 RF: 0 hydrocodone-acetaminophen 5-325 mg tablet 1 tab PO .5 times a day 30 Days Qty: 150 RF: 0 hydrocodone-acetaminophen 5-325 mg tablet 1 tab PO .5 TIMES DAILY PRN (Reason: pain) 30 Days Qty: 150 RF: 0 gabapentin 600 mg tablet 600 mg PO BID 90 Days Qty: 180 RF: 0 baclofen 20 mg tablet 10 mg PO BID PRN (Reason: muscle spasm) 90 Days Qty: 90 RF: 0 citalopram [Celexa] 20 mg tablet 20 mg PO .at bedtime Qty: 90 RF: 1 clopidogrel [Plavix] 75 mg tablet 75 mg PO QDAY Qty: 90 RF: 1 fenofibrate nanocrystallized [Tricor] 145 mg tablet 145 mg PO QDAY Qty: 90 RF: 1 trazodone 100 mg tablet 100 mg PO .at bedtime Qty: 90 RF: 1 bupropion HCl 150 mg tablet extended release 24 hr 150 mg PO QAM Qty: 90 RF: 1 sildenafil [Viagra] 50 mg tablet 50 mg PO QDAY PRN (Reason: sexual activity) Qty: 10 RF: 5 Mucinex 1,200 mg tablet extended release 12hr 1,200 mg PO BID 14 Days Qty: 28 RF: 0 nitroglycerin [Nitrostat] 0.4 mg tablet, sublingual 0.4 mg SUBLINGUAL Q5M PRN (Reason: chest pain) 90 Days Qty: 25 RF: 3 epinephrine [EpiPen 2-Juan] 0.3 mg/0.3 mL auto-injector 0.3 mg IM ONCE PRN (Reason: anaphylaxis sting) Qty: 2 RF: 1 cetirizine [Zyrtec] 10 mg tablet 10 mg PO DAILY Qty: 30 RF: 0 aspirin 81 mg Tablet,Delayed Release (Dr/Ec) 81 mg PO DAILY RF: 0 Discharge Orders: Discharge ED (Routine); Ordered 04/19/20 Ordered By: Herve Matamoros Referrals: Anjali Cunha [email or web address] [Primary Care Provider] - Discharge Diet: Usual diet Discharge Activity: Increase activity as tolerated Patient Instructions: Sarita Nelson (ED) Activity Restrictions/Additional Instructions: Home and rest. Drink plenty of fluids. Take steroid as directed. Use hydroxyzine or Benadryl as needed for a itching. Avoid astringent such as bleach or alcohol solution to the skin as it may dry and irritate the skin more. You can use hydrocortisone cream or lotion 2-3 times a day to help keep skin emollient and help soothe it. Follow-up with primary care as needed. Return to the emergency department for new concerns. Coding Level of Care Code ED Hematologist Oncologist for Ju Harper Exam Comprehensive
[2020-04-19] MEDS: dexamethasone 4 mg/mL INJ 8 MG IM (14:50)
[2020-04-19] MEDS: triamcinolone 40 mg/mL SDV IM (14:50)
[2020-04-19 15:02] VITALS: PULSE 78; RESP 18; O2SAT 100
[2020-04-19 15:05] VITALS: PULSE 78; RESP 18; O2SAT 100
== END 2020-04-19 15:05 | disposition home or self-care (01) ==
PROVIDERS: Emergency Provider Nurse Practitioner Family; PCP Nurse Practitioner
DX: L25.5 Unspecified contact dermatitis due to plants, except food (principal); Z79.02 Long term (current) use of antithrombotics/antiplatelets; Z79.82 Long term (current) use of aspirin; I12.9 Hypertensive chronic kidney disease with stage 1 through stage 4 chronic kidney disease, or unspecified chronic kidney disease; N18.2 Chronic kidney disease, stage 2 (mild); I25.10 Atherosclerotic heart disease of native coronary artery without angina pectoris; J44.9 Chronic obstructive pulmonary disease, unspecified; E78.5 Hyperlipidemia, unspecified; F17.210 Nicotine dependence, cigarettes, uncomplicated
CPT/HCPCS: 12345; 96372; 99281; 99283; J1100; J3301

== ENCOUNTER → 2020-05-22 09:21 | Outpatient (BNVA) | payer MEDICARE, SELFPAY | PROVIDERS: PCP Nurse Practitioner; Visit Provider Nurse Practitioner | DX: E78.5 Hyperlipidemia, unspecified (principal); F41.1 Generalized anxiety disorder; J30.1 Allergic rhinitis due to pollen; J44.1 Chronic obstructive pulmonary disease with (acute) exacerbation; K02.9 Dental caries, unspecified; N52.9 Male erectile dysfunction, unspecified | CPT/HCPCS: 80053; 80061; 81000; 84443 ==

== ENCOUNTER → 2020-05-30 07:53 | Outpatient (BNVA) | payer MEDICARE, SELFPAY | PROVIDERS: PCP Nurse Practitioner; Visit Provider Anesthesiology | DX: G89.29 Other chronic pain (principal); M54.41 Lumbago with sciatica, right side; M54.42 Lumbago with sciatica, left side; M47.22 Other spondylosis with radiculopathy, cervical region; F17.210 Nicotine dependence, cigarettes, uncomplicated; Z79.891 Long term (current) use of opiate analgesic | CPT/HCPCS: 99213 ==

== ENCOUNTER → 2020-07-21 11:35 | Outpatient (BNVA) | payer MEDICARE, SELFPAY | PROVIDERS: PCP Nurse Practitioner; Visit Provider Nurse Practitioner | DX: M25.532 Pain in left wrist (principal); M54.41 Lumbago with sciatica, right side; M54.42 Lumbago with sciatica, left side; G89.29 Other chronic pain | CPT/HCPCS: 73110 ==

== ENCOUNTER → 2020-08-01 07:55 | Outpatient (BNVA) | payer MEDICARE, SELFPAY | PROVIDERS: PCP Nurse Practitioner; Visit Provider Anesthesiology | DX: G89.29 Other chronic pain (principal); M54.41 Lumbago with sciatica, right side; M54.42 Lumbago with sciatica, left side; M47.22 Other spondylosis with radiculopathy, cervical region; F17.210 Nicotine dependence, cigarettes, uncomplicated; Z79.891 Long term (current) use of opiate analgesic | CPT/HCPCS: 99213 ==

== ENCOUNTER 2020-08-05 09:26 | Emergency (ER) | payer MEDICARE, SELFPAY ==
[2020-08-05 09:44] VITALS: PULSE 89; RESP 18; TEMP 36.8; O2SAT 99; BMI 26.6
--- NOTE | 2020-08-05 10:08 | ED_ITS ---
HPI - Allergic Reaction General: Chief complaint: Allergic Reaction Stated complaint: BEE STING TO L ARM Time Seen by Provider: 08/05/20 10:08 Source: patient Mode of arrival: ambulatory Limitations: no limitations History of Present Illness: HPI narrative: Patient is a nice 65-year-old male who presents to ED today for evaluation following a wasp sting to his left forearm. Patient tells me he has a history of allergic reactions to wasp stings. He states normally he will get redness and swelling surrounding the sting and sometimes will get short of breath with difficulty breathing. He does have a EpiPen that he has had to use previously. He states his sting today was approximately 3 hours ago. He is not having any shortness of breath, difficulty breathing, lip or tongue swelling. His symptoms currently are redness and swelling to the left forearm. Immediately after sting patient took 50 mg oral Benadryl. MD complaint: allergic reaction Onset (ago): hour(s) Exposure: insect bite (wasp sting) Associated symptoms: Reports no associated symptoms; Deny nausea or vomiting Severity: mild Treatment prior to arrival: benadryl Previous Allergic Reaction History: angioedema Review of Systems Eyes: Denies: change in vision or blurry vision ENMT: Reports: other (no lip/tongue swelling, no trouble swallowing); Denies: uvular edema Card: Denies: chest pain or palpitations Resp: Denies: dyspnea GI: Denies: nausea or vomiting Skin/Breast: Reports: erythema (L forearm); Denies: rash PFS ED PFSH: Medical History Allergic rhinitis due to pollen Anxiety, generalized Atherosclerotic heart disease of [place] coronary artery without angina pectoris Chronic kidney disease, 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 Chronic obstructive pulmonary disease, unspecified Dyslipidemia Encounter for long-term use of opiate analgesic Essential (primary) hypertension Inability to maintain erection Nicotine dependence Opioid contract exists Personal history of nicotine dependence Surgical History H/O eye surgery Stented coronary artery Status post for stent Family History Other Cancer Diabetes Social History Smoking and tobacco status: current every day smoker cigarettes Packs smoked per day: 0.5 Quit status (tobacco): has quit using tobacco Former quit date comment: AUGUST 2019 Second hand smoke exposure: Yes Smoking risk assessment/counseling performed?: Yes Alcohol intake: never Desire information about alcohol rehabilitation?: No Counseling given: No Desire information about substance/drug rehabilitation?: No Counseling given: No Adopted: No Caregiver/support person: No Lives independently: Yes Household members: significant other and children Housing: House Marital status: / service: No Current occupational status: disabled History of recent travel: No Current gender identity: Male Physical Exam Const: COMMON NORMALS: no acute distress, patient oriented x3, no limitations and alert GENERAL APPEARANCE: cooperative ORIENTATION/CONSCIOUSNESS: Yes awake, Yes oriented to person, Yes oriented to place and Yes oriented to time HENMT: COMMON NORMALS: normocephalic and atraumatic HEAD & SCALP: normocephalic and atraumatic FACE & SINUS: normal facial exam MOUTH: Normal oral and palatal mucosa present, lip normal and tongue normal THROAT: posterior oropharynx normal and uvula midline; no uvular edema Eye: GENERAL EYE: appearance normal, both eyes and all related structures Resp: COMMON NORMALS: normal respiratory effort and clear to auscultation bilaterally AUSCULTATION: clear to auscultation bilaterally Cardio: COMMON NORMALS: regular rate and regular rhythm RATE: regular rate RHYTHM: regular rhythm Extremity: NARRATIVE EXTREMITY EXAM: pt has erythema throughout the entire volar forearm surface; no obvious swelling appreciated; NV intact Neuro: COMMON NORMALS: patient oriented x3 SENSORIUM/ORIENTATION: Yes alert, Yes oriented to person, Yes oriented to place and Yes oriented to time Skin: NARRATIVE SKIN EXAM: see extremity assessment for pertinent skin findings Course Vital Signs: Vital signs: Vital Signs Temperature 98.2 F 08/05/20 09:44 Pulse Rate 72 08/05/20 10:43 Respiratory Rate 16 08/05/20 10:43 Blood Pressure 135/88 08/05/20 10:43 Pulse Oximetry 98 08/05/20 10:43 MDM - Allergic Reaction MDM Narrative: Medical decision making narrative: Patient is still asymptomatic apart from the left forearm redness which is consistent with a localized reaction. Patient was given IM Solu-Medrol and Benadryl. He was monitored for over half an hour and continues to be stable. At this time we will discharge patient home. Return to ED precautions given. Discharge Plan Discharge Patient Disposition: Home Clinical Impression: Accidental wasp sting Condition: Stable Prescriptions: No Action atorvastatin 40 mg tablet 40 mg PO DAILY Qty: 90 RF: 3 albuterol sulfate [ProAir HFA] 90 mcg/actuation HFA aerosol inhaler 2 puff INHALATION QID PRN (Reason: shortness of breath or wheezing) 30 Days Qty: 6.7 RF: 2 bupropion HCl 150 mg tablet extended release 24 hr 150 mg PO QAM Qty: 90 RF: 1 cetirizine [Zyrtec] 10 mg tablet 10 mg PO DAILY Qty: 90 RF: 1 chlorhexidine gluconate 0.12 % mouthwash 15 ml BUCCAL BID Qty: 473 RF: 2 citalopram [Celexa] 20 mg tablet 20 mg PO .at bedtime Qty: 90 RF: 1 clopidogrel [Plavix] 75 mg tablet 75 mg PO QDAY Qty: 90 RF: 1 mometasone [Nasonex] 50 mcg/actuation spray,non-aerosol 2 spray INTRANASAL BID Qty: 17 RF: 2 trazodone 100 mg tablet 100 mg PO .at bedtime Qty: 90 RF: 1 sildenafil [Viagra] 50 mg tablet 50 mg PO QDAY PRN (Reason: sexual activity) Qty: 10 RF: 5 baclofen 20 mg tablet 10 mg PO BID PRN (Reason: muscle spasm) 90 Days Qty: 90 RF: 1 gabapentin 600 mg tablet 600 mg PO BID 90 Days Qty: 180 RF: 1 hydrocodone-acetaminophen 5-325 mg tablet 1 tab PO .5 TIMES DAILY PRN (Reason: pain) 30 Days Qty: 150 RF: 0 hydrocodone-acetaminophen 5-325 mg tablet 1 tab PO .5 times a day 30 Days Qty: 150 RF: 0 magnesium oxide 500 mg tablet 500 mg PO BID Qty: 60 RF: 0 fenofibrate nanocrystallized [Tricor] 145 mg tablet 145 mg PO QDAY Qty: 90 RF: 1 Mucinex 1,200 mg tablet extended release 12hr 1,200 mg PO BID 14 Days Qty: 28 RF: 0 nitroglycerin [Nitrostat] 0.4 mg tablet, sublingual 0.4 mg SUBLINGUAL Q5M PRN (Reason: chest pain) 90 Days Qty: 25 RF: 3 epinephrine [EpiPen 2-Juan] 0.3 mg/0.3 mL auto-injector 0.3 mg IM ONCE PRN (Reason: anaphylaxis sting) Qty: 2 RF: 1 aspirin 81 mg Tablet,Delayed Release (Dr/Ec) 81 mg PO DAILY RF: 0 Discharge Orders: Discharge ED (Routine); Ordered 08/05/20 Ordered By: Martha Martinez Referrals: Anjali Cunha FNP-C [Primary Care Provider] - Patient Instructions: Insect Bite or Sting (ED) Activity Restrictions/Additional Instructions: He may apply hydrocortisone cream to the forearm. You may continue Benadryl as directed on the bottle. Return to the emergency department/call an ambulance for shortness of breath, difficulty breathing, swelling to your tongue or lips, trouble swallowing, or any other concerns you may have. Coding Level of Care Code ED Biztalk Consultant for Ju Fwd Exam Detailed
[2020-08-05] MEDS: diphenhydrAMINE 50 mg/mL SDV 1mL 25 MG IM (10:30)
[2020-08-05 10:43] VITALS: BP 135/88; PULSE 72; RESP 16; O2SAT 98
[2020-08-05 11:03] VITALS: BP 135/88; PULSE 72; RESP 16; O2SAT 98
== END 2020-08-05 11:04 | disposition home or self-care (01) ==
PROVIDERS: Emergency Provider Physician Assistant; PCP Nurse Practitioner
DX: T63.461A Toxic effect of venom of wasps, accidental (unintentional), initial encounter (principal); Z79.02 Long term (current) use of antithrombotics/antiplatelets; Z79.82 Long term (current) use of aspirin; I12.9 Hypertensive chronic kidney disease with stage 1 through stage 4 chronic kidney disease, or unspecified chronic kidney disease; N18.2 Chronic kidney disease, stage 2 (mild); I25.10 Atherosclerotic heart disease of native coronary artery without angina pectoris; E78.5 Hyperlipidemia, unspecified; J44.9 Chronic obstructive pulmonary disease, unspecified; F17.210 Nicotine dependence, cigarettes, uncomplicated
CPT/HCPCS: 96372; 99283; J1200; J2930

== ENCOUNTER 2020-08-23 19:26 | Emergency (ER) | payer MEDICARE, SELFPAY ==
[2020-08-23 19:27] VITALS: BP 130/67; PULSE 74; RESP 13; O2SAT 95; BMI 27.4
--- NOTE | 2020-08-23 19:31 | W.ED.LOWEXIN ---
HPI - Extremity Injury (Lower) General: Chief Complaint: Fall Stated Complaint: hip pain Time Seen by Provider: 08/23/20 19:28 Source: patient Mode of arrival: ambulatory Limitations: no limitations History of Present Illness: HPI Narrative: Patient comes in today for complaints of injury sustained when he slipped going down some steps outside landing on his left hip. Patient was able to stand with help and bear weight on the hip. Patient is able to lift leg off the table. No shortening or rotation is noted to the hip. Patient does have a history of chronic back pain, hypertension, COPD, tobacco abuse. Review of Systems General: Reports: 10 or more systems reviewed and unremarkable except in HPI and below Musc: Reports: other (Left hip pain) [facility] ED PFSH: Medical History Allergic rhinitis due to pollen Anxiety, generalized Atherosclerotic heart disease of [place] coronary artery without angina pectoris Chronic kidney disease, 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 Chronic obstructive pulmonary disease, unspecified Dyslipidemia Encounter for long-term use of opiate analgesic Essential (primary) hypertension Inability to maintain erection Nicotine dependence Opioid contract exists Personal history of nicotine dependence Surgical History H/O eye surgery Stented coronary artery Status post for stent Family History Other Cancer Diabetes Social History Smoking and tobacco status: current every day smoker cigarettes Packs smoked per day: 0.5 Quit status (tobacco): has quit using tobacco Former quit date comment: AUGUST 2019 Second hand smoke exposure: Yes Smoking risk assessment/counseling performed?: Yes Alcohol intake: never Desire information about alcohol rehabilitation?: No Counseling given: No Desire information about substance/drug rehabilitation?: No Counseling given: No Adopted: No Caregiver/support person: No Lives independently: Yes Household members: significant other and children Housing: House Marital status: / service: No Current occupational status: disabled History of recent travel: No Current gender identity: Male Physical Exam Const: COMMON NORMALS: no acute distress and patient oriented x3 GENERAL APPEARANCE: cooperative HENMT: COMMON NORMALS: normocephalic and Normal external nose present HEAD & SCALP: normal to inspection and normocephalic NOSE: Normal external nose present MOUTH: Normal oral and palatal mucosa present THROAT: posterior oropharynx normal Eye: GENERAL EYE: appearance normal, both eyes and all related structures Neck/C-Spine: COMMON NORMALS: full ROM Chest: COMMONS NORMALS: normal inspection of the chest Resp: COMMON NORMALS: normal respiratory effort EFFORT & INSPECTION: Yes able to speak in complete sentences Cardio: COMMON NORMALS: regular rate and regular rhythm RATE: regular rate RHYTHM: regular rhythm GI: COMMON NORMALS: non-tender Back/Pelvis: COMMON NORMALS: thoracic and lumbar spine normal to inspection Extremity: COMMON NORMALS: normal to inspection NARRATIVE EXTREMITY EXAM: Left buttock tenderness on palpation. No obvious deformity is noted. No midline pain is noted to the spine. Neuro: COMMON NORMALS: patient oriented x3 and moves all extremities Psych: COMMON NORMALS: mental status grossly normal and cooperative Skin: COMMON NORMALS: no rashes or lesions noted GENERAL SKIN EXAM: no rashes or lesions noted Course Vital Signs: Vital signs: Vital Signs Pulse Rate 74 08/23/20 19:58 Respiratory Rate 12 08/23/20 19:58 Blood Pressure 130/67 08/23/20 19:58 Pulse Oximetry 97 08/23/20 19:58 MDM - Extremity Injury (Lower) MDM Narrative: Medical decision making narrative: Patient comes in for left hip pain after suffering a fall this morning. Patient appears well. Patient appears in moderate pain. Patient had received 1 mg of Dilaudid prior to arrival to the ER. On exam patient has some tenderness to the left buttock area of the left hip. Patient does have mobility of the hip. No shortening or external or internal rotation is noted to the hip. Differential diagnosis includes pelvic fracture, contusion, sprain. X-rays noted no acute fracture of the lumbar spine or the pelvis or the left hip. Reviewed the exam with patient with recommendations for treatment and follow-up. Patient can continue with his routine medications and follow-up with primary care as needed for further instruction. Discharge Plan Discharge Patient Disposition: Home Clinical Impression: Acute pain of left hip Fall from slip, trip, or stumble Qualifiers: Encounter type: initial encounter Qualified Code(s): W01.0XXA - Fall on same level from slipping, tripping and stumbling without subsequent striking against object, initial encounter Condition: Stable Prescriptions: No Action atorvastatin 40 mg tablet 40 mg PO DAILY Qty: 90 RF: 3 albuterol sulfate [ProAir HFA] 90 mcg/actuation HFA aerosol inhaler 2 puff INHALATION QID PRN (Reason: shortness of breath or wheezing) 30 Days Qty: 6.7 RF: 2 bupropion HCl 150 mg tablet extended release 24 hr 150 mg PO QAM Qty: 90 RF: 1 cetirizine [Zyrtec] 10 mg tablet 10 mg PO DAILY Qty: 90 RF: 1 chlorhexidine gluconate 0.12 % mouthwash 15 ml BUCCAL BID Qty: 473 RF: 2 citalopram [Celexa] 20 mg tablet 20 mg PO .at bedtime Qty: 90 RF: 1 clopidogrel [Plavix] 75 mg tablet 75 mg PO QDAY Qty: 90 RF: 1 mometasone [Nasonex] 50 mcg/actuation spray,non-aerosol 2 spray INTRANASAL BID Qty: 17 RF: 2 trazodone 100 mg tablet 100 mg PO .at bedtime Qty: 90 RF: 1 sildenafil [Viagra] 50 mg tablet 50 mg PO QDAY PRN (Reason: sexual activity) Qty: 10 RF: 5 baclofen 20 mg tablet 10 mg PO BID PRN (Reason: muscle spasm) 90 Days Qty: 90 RF: 1 gabapentin 600 mg tablet 600 mg PO BID 90 Days Qty: 180 RF: 1 hydrocodone-acetaminophen 5-325 mg tablet 1 tab PO .5 TIMES DAILY PRN (Reason: pain) 30 Days Qty: 150 RF: 0 hydrocodone-acetaminophen 5-325 mg tablet 1 tab PO .5 times a day 30 Days Qty: 150 RF: 0 magnesium oxide 500 mg tablet 500 mg PO BID Qty: 60 RF: 0 fenofibrate nanocrystallized [Tricor] 145 mg tablet 145 mg PO QDAY Qty: 90 RF: 1 Mucinex 1,200 mg tablet extended release 12hr 1,200 mg PO BID 14 Days Qty: 28 RF: 0 nitroglycerin [Nitrostat] 0.4 mg tablet, sublingual 0.4 mg SUBLINGUAL Q5M PRN (Reason: chest pain) 90 Days Qty: 25 RF: 3 epinephrine [EpiPen 2-Juan] 0.3 mg/0.3 mL auto-injector 0.3 mg IM ONCE PRN (Reason: anaphylaxis sting) Qty: 2 RF: 1 aspirin 81 mg Tablet,Delayed Release (Dr/Ec) 81 mg PO DAILY RF: 0 Discharge Orders: Discharge ED (Routine); Ordered 08/23/20 Ordered By: Herve Matamoros Referrals: Anjali Cunha, NETWORK TECHNICAL ANALYST-C [Primary Care Provider] - Discharge Diet: Usual diet Discharge Activity: Increase activity as tolerated Patient Instructions: Arthralgia (ED), Opioid Safety Activity Restrictions/Additional Instructions: Activity as tolerated. Gentle stretching and range of motion exercises. Continue with routine medications as ordered. Follow-up with primary care for further instructions. Return to the ER for new concerns. Coding Level of Care Code ED Napkin Machine Operator for Ju Fwd Exam Comprehensive
--- NOTE | 2020-08-23 19:34 | XRR_ITS ---
PROCEDURE INFORMATION: Exam: XR Left Hip Exam date and time: 08/23/2020 7:36 PM Age: 65 years old Clinical indication: Injury or trauma; Fall; Blunt trauma (contusions or hematomas); Left; Hip; Additional info: Fall, left hip pain TECHNIQUE: Imaging protocol: XR Left hip. Views: 2 or 3 views hip with pelvis when performed. COMPARISON: No relevant prior studies available. FINDINGS: Bones/joints: Unremarkable. No acute fracture. Soft tissues: Unremarkable. XR/XR hip LT 2-3V wo/w pel* [id number] IMPRESSION: No acute findings.
--- NOTE | 2020-08-23 19:34 | XRR_ITS ---
PROCEDURE INFORMATION: Exam: XR Lumbosacral Spine Exam date and time: 08/23/2020 7:36 PM Age: 65 years old Clinical indication: Injury or trauma; Fall; Blunt trauma (contusions or hematomas) TECHNIQUE: Imaging protocol: XR of the lumbosacral spine. Views: 2 or 3 views. COMPARISON: [place] [id number] 07/17/2016 7:41 PM FINDINGS: Bones/joints: Transitional lumbosacral anatomy with 6 [id number] lumbar type vertebral bodies. Loss of the normal lordosis. Old compression deformity of the L2 vertebral body. Mild multilevel degenerative changes of the discs with marginal osteophytosis. Mild to moderate degenerative changes of the facet joints, greatest L4-S1. Soft tissues: Unremarkable. XR/XR lumbar spine 2-3V* [id number] IMPRESSION: 1. No acute abnormality. 2. Moderate degenerative changes of the lower lumbar spine.
[2020-08-23 19:58] VITALS: BP 130/67; PULSE 74; RESP 12; O2SAT 97
[2020-08-23 21:35] VITALS: BP 114/62; PULSE 70; RESP 13; O2SAT 97
== END 2020-08-23 21:36 | disposition home or self-care (01) ==
PROVIDERS: Emergency Provider Nurse Practitioner Family; PCP Nurse Practitioner
DX: M25.552 Pain in left hip (principal); Z79.02 Long term (current) use of antithrombotics/antiplatelets; Z79.82 Long term (current) use of aspirin; I25.10 Atherosclerotic heart disease of native coronary artery without angina pectoris; I12.9 Hypertensive chronic kidney disease with stage 1 through stage 4 chronic kidney disease, or unspecified chronic kidney disease; N18.2 Chronic kidney disease, stage 2 (mild); J44.9 Chronic obstructive pulmonary disease, unspecified; E78.5 Hyperlipidemia, unspecified; F17.210 Nicotine dependence, cigarettes, uncomplicated; W01.0XXA Fall on same level from slipping, tripping and stumbling without subsequent striking against object, initial encounter
CPT/HCPCS: 72100; 73502; 99283

== ENCOUNTER → 2020-09-30 09:57 | Outpatient (BNVA) | payer MEDICARE, SELFPAY | PROVIDERS: PCP Nurse Practitioner; Visit Provider Nurse Practitioner | DX: G89.29 Other chronic pain (principal); M54.41 Lumbago with sciatica, right side; M54.42 Lumbago with sciatica, left side; F17.210 Nicotine dependence, cigarettes, uncomplicated; Z79.891 Long term (current) use of opiate analgesic; Z71.6 Tobacco abuse counseling | CPT/HCPCS: 99214 ==

== ENCOUNTER → 2020-11-26 08:10 | Outpatient (BNVA) | payer MEDICARE, SELFPAY | PROVIDERS: PCP Nurse Practitioner; Visit Provider Nurse Practitioner | DX: G89.29 Other chronic pain (principal); M54.41 Lumbago with sciatica, right side; M54.42 Lumbago with sciatica, left side; F17.210 Nicotine dependence, cigarettes, uncomplicated; Z79.891 Long term (current) use of opiate analgesic; Z71.6 Tobacco abuse counseling | CPT/HCPCS: 99213; 99214 ==

== ENCOUNTER → 2020-12-03 09:23 | Outpatient (BNVA) | payer MEDICARE, SELFPAY | PROVIDERS: PCP Nurse Practitioner; Visit Provider Nurse Practitioner | DX: I10 Essential (primary) hypertension (principal); F41.1 Generalized anxiety disorder; J30.1 Allergic rhinitis due to pollen; N52.9 Male erectile dysfunction, unspecified; I25.10 Atherosclerotic heart disease of native coronary artery without angina pectoris; K02.9 Dental caries, unspecified | CPT/HCPCS: 80053; 80061; 81000; 84443 ==

== ENCOUNTER 2020-12-26 06:39 | Outpatient (CLI) | payer MEDICARE, SELFPAY ==
[2020-12-26 07:16] VITALS: BMI 26.9
--- NOTE | 2020-12-26 07:16 | NMCV_ITS ---
NM pratibha perf SPECT r/s* [id number] Woodrow Shafer Age: 65 Gender: M : 1955 Exam Date: 12/26/2020 08:13 Ordering Phys: Nahid Ludwig M.D ([email or web address]) Technologist: NANCY Thomas Exam Location: [facility] Indications: SHORTNESS OF BREATH STRESS TEST Please [facility] IMAGE PROTOCOL Rest/Stress 1 Lexiscan Day Radiopharmaceutical Dose (mCi) Administration Site Administered by Rest: Tc-99m 10.9 IV NANCY Camp Sestamibi Stress:Tc-99m 32.4 IV NANCY Camp Sestamibi Rest: 26-Dec-2020 60 Discovery 630 Stress: 26-Dec-2020 30 Discovery 630 0.4mg Lexiscan. Images obtained in supine and prone position. SPECT RESULTS Technical Quality: Excellent Raw Data Analysis: Normal Image Corrections: No attenuation or motion correction applied Summed Stress Score: 10 Summed Rest Score: 4 Summed Difference Score: 6 PERFUSION FINDINGS There is moderate area of reduced radiotracer uptake in the inferior wall with partial reversibility. This is consistent with prior infarct with significant julius-infarct ischemia FUNCTIONAL RESULTS (calculated via Gated SPECT) Stress Image LV EF (%): 59 Stress EDV (mL):80 TID: 0.87 Stress ESV (mL):33 FUNCTIONAL FINDINGS: There is normal left ventricular systolic function. IMPRESSIONS 1. 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 LV systolic function is normal Nahid Ludwig MD (Electronically Signed) Final Date: 28 December 2020 20:01 S
--- NOTE | 2020-12-26 07:16 | ECG_ITS ---
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 Interpretive Statements NAME OF STUDY: LEXISCAN SESTAMIBI STRESS TEST INDICATION: [sob] Procedure: At the baseline, the blood pressure was 127/76mmHg with a heart rate of 58 bpm. The electrocardiogram showed sinus bradycardia, normal axis with normal ST and T's. The Lexiscan was infused over a period of 20 seconds. A total of 0.4 mg of Lexiscan was infused. The stress phase was continued for a total of 5 minutes. Heart rate was at the end of stress phase was 85 bpm and a blood pressure of 127/64mmHg. The EKG at the peak infusion revealed since normal sinus rhythm with no significant ST-T wave changes. Sestamibi was injected 20 seconds after the Lexiscan infusion. Blood pressure at the end of recovery phase was 137/70 mmHg with a heart rate of 93 bpm. Conclusion: 1. Normal EKG response to Lexiscan infusion 2. No Lexiscan induced chest pain or cardiac arrhythmia. 3. Normal blood pressure and heart rate response. 4. Sestamibi/sestamibi perfusion scan pending; see separate report. Electronically Signed On 01-11-2021 12:23:12 CDT by Nahid Ludwig M.D. [email or web address]
[2020-12-26] MEDS: regadenoson 0.4 Mg/5 ml Syringe IVP (08:46)
[2020-12-26 08:54] VITALS: BP 137/70; PULSE 89
== END 2020-12-26 06:40 | disposition home or self-care (01) ==
PROVIDERS: PCP Nurse Practitioner; Visit Provider Internal Medicine
DX: R06.02 Shortness of breath (principal)
CPT/HCPCS: 78452; 93017; A9500; J2785

== ENCOUNTER → 2021-01-23 08:37 | Outpatient (BNVA) | payer MEDICARE, SELFPAY | PROVIDERS: PCP Nurse Practitioner; Visit Provider Nurse Practitioner | DX: G89.29 Other chronic pain (principal); M54.41 Lumbago with sciatica, right side; M54.42 Lumbago with sciatica, left side; F17.210 Nicotine dependence, cigarettes, uncomplicated; Z79.891 Long term (current) use of opiate analgesic; Z71.6 Tobacco abuse counseling | CPT/HCPCS: 99213; 99214 ==

== ENCOUNTER → 2021-01-30 07:56 | Outpatient (BNVA) | payer MEDICARE, SELFPAY | PROVIDERS: PCP Nurse Practitioner; Visit Provider Internal Medicine | DX: Z01.812 Encounter for preprocedural laboratory examination (principal); R94.39 Abnormal result of other cardiovascular function study; R06.02 Shortness of breath; Z20.822 Contact with and (suspected) exposure to COVID-19 | CPT/HCPCS: 80048; 85025; 87635 ==

== ENCOUNTER 2021-02-05 06:03 | Outpatient (CLI) | payer MEDICARE, SELFPAY ==
[2021-02-05] VITALS (11 sets, daily range): BP systolic 112–142; BP diastolic 64–81; PULSE 51–64; RESP 11–20; TEMP 36.5; O2SAT 93–99; BMI 27.0
--- NOTE | 2021-02-05 06:27 | XACV_ITS ---
Ht: 175 cm Wt: 83 kg BSA: 2.03 m2 Gender: Male : 1955 Any Known Allergies: Other Exam Priority: Routine Procedure(s): Procedure Description: Diagnostic procedure Procedure Description: Left Heart Catheterization Procedure Description: Coronary angiogram Diagnostic Cath Status: Elective Diagnostic Findings * INDICATION: CHEST PAIN/LEFT ARM PAIN/ DYSPNEA ON EXERTION/ABNORMAL STRESS TEST. * No significant disease noted in the Left Main, Left Anterior Descending, Right, or Circumflex coronary arteries. * Patent prior stents in LAD/LCx and RCA. * Coronary angiography shows right dominance. Conclusions 1. No significant disease noted in the Left Main, Left Anterior Descending, Right, or Circumflex coronary arteries. 2. Patent stents noted in LAD/ LCx and RCA. Recommendations * Aggressive risk factor modification. * Outpatient cardiology follow up in 4 weeks. Interventional RX Recommendation: medical therapy and/or counseling Diagnostic RX Recommendation: medical therapy and/or counseling Pressures Phase:Rest AO : 114 / 9 ( 40 ) @ 1:58:00 PM 101 / 60 ( 78 ) @ 1:59:00 PM 109 / 36 ( 68 ) @ 1:59:00 PM LV : 114 / -7 / 9 @ 1:58:00 PM 114 / -6 / 9 @ 1:59:00 PM 114 / -6 / 9 @ 1:59:00 PM 114 / -6 / 7 @ 1:59:00 PM Valves Phase:DefaultPhase AV : 12.0 @ 3:12:53 PM AV Mean Gradient: 11.0 @ 3:12:53 PM Clinical Evaluation EBL: 5mL-10mL Procedural Details Procedure Consent Obtained. Admit Source: Out Patient. Katie Gamez RN, circulating. Ankush Liu, CPT, BRANCH CONTROLLER, scrubbing. Pre-Procedure Time Out. Identified patient by full name and date of as verbalized by the patient/guarantor. Does the consent match the physician's order: Yes. Accurate & Complete Informed Consent: Yes. Inpatient/Outpatient History & Physical on Chart: Yes. If H&P is completed, is and addenduem needed: N/A. Relevant Radiology Images available: Yes. The risks, benefits, and alternatives of sedation and/or procedure were discussed by physician. The patient agrees to continue. Kasie Rao RN, THREAD MARKER was relieved by RT Raul as monitoring person. The risks, benefits, and alternatives of sedation and/or procedure were discussed by physician. The patient agrees to continue. Procedure started. Correct patient, site and procedure confirmed by cath team. PERRLA. Strong, equal hand skid man bilaterally. Lungs clear x 5 lobes. IV Site on Arrival: 20 gauge in the left forearm. Pre Procedural Pulses: bilateral posterior tibial was 3+. Pre Procedural Pulses: bilateral dorsalis pedis was 3+. Pre Procedural Pulses: bilateral radial was 3+. Oxygen started at 2liters/min via nasal canula. bilateral groins was prepped with chloroprep then draped in the usual sterile fashion. right radial was prepped with chloroprep then draped in the usual sterile fashion. Physician notified. Baseline sample Acquired. HR: 53 BPM. [facility] Clinical Fraility Score: 3: Managing Well. Lang Interpreter Indications: Worsening Angina. Chest Pain Symptom Assessment: Typical Angina Symptoms. Cardiovascular Instability: No,. Physician arrived. Physician scrubbed in. Immediate Pre-Procedure Time Out. Correct Patient: Yes; Correct Procedure: Yes; Correct Site: Yes; Correct Patient Position: Yes; Correct Supplies: Yes; Dried Flammable Prep: Yes; Blood Products Available: N/A;. Lidocaine 1% infiltrated to the right radial. Arterial access obtained. A 5 frisian TIG catheter in over wire. wire out. EDP Sample taken: LV 114/-7,9; HR: 64 BPM; SpO2: 96%. EDP Sample taken: LV 114/-7,9; HR: 80 BPM; SpO2: 96%. Pullback taken: LV 114/-7,7; AO 101/60(78); Mean: 11mmHg, Peak to Peak: 12mmHg, SEP: 19sec/min; HR: 64 BPM; SpO2: 96%. Multiple views taken of left coronary artery. Catheter redirected to the RCA. Multiple views taken of right coronary artery. Catheter out. A 5 frisian Angled Pig catheter in over wire. Catheter out. TR band placed. Hemostasis obtained. Post Procedure: Pulses reassessed and unchanged. PERRLA. Strong, equal hand skid man bilaterally. No VTE prophylaxis required. Medication's Wasted: Lidocaine 1% = 18 mL. Medication's Wasted: Nitro = 49.8 mg. Medication's Wasted: Heparin = 1000 units. Total IV fluids: 38 mL. Contrast type used: Omnipaque 300 mgI/mL, 500 mL bottle. Contrast Material : Omnipaque 59 ml. Post-op diagnosis: non obstructive CAD, patient stents. Complications: none. Estimated blood loss: 5mL-10mL. Procedure completed. Patient transferred by wheelchair to 1st floor. A TR Band was successful obtaining hemostatsis at the Right Radial artery insertion site. Vital chart was stopped. Access Site Site: Right Radial artery Sheath Size: 6 Fr Hemostasis Method: TR Band Hemostasis Success: Successful Procedure Medications Start: 2:50 PM Stop: 2:50 PM Medication: Versed Amount: 1 mg Route: I.V. Start: 2:50 PM Stop: 2:50 PM Medication: Fentanyl Amount: 50 mcg Route: I.V. Start: 2:52 PM Stop: 2:52 PM Medication: Versed Amount: 1 mg Route: I.V. Start: 2:55 PM Stop: 2:55 PM Medication: Nitrogylcerin Amount: 200 mcg Route: I.A. Start: 2:56 PM Stop: 2:56 PM Medication: Fentanyl Amount: 50 mcg Route: I.V. Start: 2:58 PM Stop: 2:58 PM Medication: Heparin Amount: 5000 units Route: I.V. I, the attending physician, have reviewed and verified all procedure medications. Yes, all medications given per verbal order History/Risk Factors Hypertension: Yes Dyslipidemia: Yes Tobacco Use: Current/Recent(w/in 1 year) Prior Interventions PCI: Yes Report Signatures Finalized by Nahid Ludwig MD on 02/19/2021 09:23 AM
[2021-02-05] MEDS: diphenhydrAMINE 50 mg Capsule PO (06:36)
--- NOTE | 2021-02-05 14:47 | W.PM.OPSFHP ---
Same Day Surgery H&P Indication for Procedure/HPI DATE OF PROCEDURE: February 05, 2021 CHIEF COMPLAINT/INDICATIONFOR SURGICAL PROCEDURE: Worsening angina PREOP DIAGNOSIS: Worsening angina PLANNED PROCEDRUE: Operation Date: 02/05/21 07:00 Proposed Procedures p Cardiac Catheterization(Left) - Nahid Ludwig M.D Possible percutaneous coronary intervention 65-year-old man with past medical history of coronary artery disease with PCI to all 3 vessels including LAD, LCx and RCA, dyslipidemia, sleep apnea, COPD, chronic kidney disease, tobacco abuse and hypertension has been having worsening dyspnea on exertion, chest discomfort and left arm pain. Given his significant coronary artery disease history, will proceed with coronary angiogram. ROS CONSTITUTIONAL: No fever or chills. [] EYES: No blurring of vision or other visual disturbances lately. [] ENT: No hoarseness of voice, auditory disturbances or sore throat. [] CARDIOVASCULAR: As mentioned above. [] RESPIRATORY: No significant cough. [] GASTROINTESTINAL: No hematemesis or melena. [] GENITOURINARY: No dysuria or hematuria. [] INTEGUMENTARY: No skin rashes or history of skin cancer. [] NEURO: No transient ischemic attacks or amaurosis. [] PSYCHIATRIC: No history of psychosis or major depression. [] HEMATOLOGIC: No bleeding disorders or significant anemia. [] ENDOCRINE: No history of polyuria or polydipsia. [] MUSCULOSKELETAL: No recent joint pain or swelling. [] ALLERGY/IMMUNOLOGY: As mentioned above. [] Medications/Allergies* Home Medications Medication Instructions Recorded Confirmed Type aspirin 81 mg PO DAILY 10/13/19 02/05/21 History Allergies/Adverse Reactions Allergy/AdvReac Type Severity Reaction Status Date / Time venom-wasp Allergy swelling Verified 01/23/21 08:46 Current Medications: Generic Name Dose Route Start Last Admin Trade Name Freq PRN Reason Stop Dose Admin Sodium Chloride 1,000 mls @ 50 mls/hr 02/05/21 06:27 02/05/21 06:36 Sodium Chloride 0.9% IV 02/06/21 02:26 Not Given .Q20H ONE Pertinent History/Comorbid Conditions* Medical History (Updated 12/07/20 @ 20:55 by JOHNNY Swanson) Allergic rhinitis due to pollen Anxiety, generalized Atherosclerotic heart disease of [place] coronary artery without angina pectoris Chronic kidney disease, 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 Chronic obstructive pulmonary disease, unspecified Dyslipidemia Encounter for long-term use of opiate analgesic Essential (primary) hypertension Inability to maintain erection Nicotine dependence Opioid contract exists Personal history of nicotine dependence Surgical History (Updated 09/30/20 @ 10:38 by VANCE Bermudez) H/O eye surgery Stented coronary artery Status post for stent most recent 2018 Family History (Updated 05/30/19 @ 08:48 by Anny Douglas LPN) Diabetes Cancer Social History Smoking and tobacco status: current every day smoker (down to 1 pck every 2.5 days) cigarettes Packs smoked per day: 0.5 Quit status (tobacco): has quit using tobacco Former quit date comment: AUGUST 2019 Second hand smoke exposure: Yes Smoking risk assessment/counseling performed?: Yes Alcohol intake: never Desire information about alcohol rehabilitation?: No Counseling given: No Desire information about substance/drug rehabilitation?: No Counseling given: No Adopted: No Caregiver/support person: No Lives independently: Yes Household members: significant other and children Housing: House Marital status: / service: No Current occupational status: disabled History of recent travel: No Current gender identity: Male Pertinent Exam Findings alert, oriented x 3, clear to auscultation bilaterally and regular rate & rhythm Conscious Sedation Assessment PATIENT ASSESSED PRIOR TO SEDATION, WITH NO CHANGE NOTED: Yes AIRWAY EVAL/ANESTHESIA PLAN: normal airway, ASA III, Monitored Anesthesia, Local Anesthesia, Risks, benefits & alternatives of sedation and/or procedure discussed and Patient agrees to continue as planned Recommendations Surgery/Procedure today (Left heart cath with possible percutaneous coronary intervention) Coding Level of Care Code Acute Chief Medical Technologist for Ju Harper
--- NOTE | 2021-02-05 18:50 | PC.NURSE ---
Pt discharged home. Pt discharge instructions given along with follow up appointments. Pt had no c/o pain or discomfort at the time of discharge.
--- NOTE | 2021-02-06 14:18 | PC.RESP ---
SMOKING CESSATION AND PULMONARY REHAB INFORMATION SENT TO PATIENT.
== END 2021-02-05 18:45 | disposition home or self-care (01) | DRG 287 ==
LOC: CCL 06:31 → CSU 16:47
PROVIDERS: PCP Nurse Practitioner; Visit Provider Internal Medicine
DX: I25.119 Atherosclerotic heart disease of native coronary artery with unspecified angina pectoris (principal); Z95.5 Presence of coronary angioplasty implant and graft; E78.5 Hyperlipidemia, unspecified; G47.30 Sleep apnea, unspecified; J44.9 Chronic obstructive pulmonary disease, unspecified; I11.0 Hypertensive heart disease with heart failure; N18.2 Chronic kidney disease, stage 2 (mild); F41.1 Generalized anxiety disorder; M54.42 Lumbago with sciatica, left side; M54.41 Lumbago with sciatica, right side; G89.29 Other chronic pain; F17.210 Nicotine dependence, cigarettes, uncomplicated
CPT/HCPCS: 36415; 93458; C1769; C1887; C1894; J1644; J2250; J3010; J3490; J7030; Q0163; Q9967

== ENCOUNTER → 2021-02-16 10:53 | Outpatient (BNVA) | payer MEDICARE, SELFPAY | PROVIDERS: PCP Nurse Practitioner; Visit Provider Nurse Practitioner Family | DX: I25.10 Atherosclerotic heart disease of native coronary artery without angina pectoris (principal) | CPT/HCPCS: 80048 ==

== ENCOUNTER → 2021-03-27 07:43 | Outpatient (BNVA) | payer MEDICARE, SELFPAY | PROVIDERS: PCP Nurse Practitioner; Visit Provider Anesthesiology | DX: G89.29 Other chronic pain (principal); M54.50 Low back pain, unspecified; F17.210 Nicotine dependence, cigarettes, uncomplicated; Z79.891 Long term (current) use of opiate analgesic; Z71.6 Tobacco abuse counseling | CPT/HCPCS: 99214 ==

== ENCOUNTER → 2021-06-02 08:03 | Outpatient (BNVA) | payer MEDICARE, SELFPAY | PROVIDERS: PCP Nurse Practitioner; Visit Provider Anesthesiology | DX: G89.29 Other chronic pain (principal); J44.9 Chronic obstructive pulmonary disease, unspecified; M54.41 Lumbago with sciatica, right side; R05.9 Cough, unspecified; M54.42 Lumbago with sciatica, left side; F17.210 Nicotine dependence, cigarettes, uncomplicated; Z79.891 Long term (current) use of opiate analgesic; Z71.6 Tobacco abuse counseling | CPT/HCPCS: 71046; 99213 ==

== ENCOUNTER → 2021-08-25 15:52 | Outpatient (BNVA) | payer MEDICARE, SELFPAY | PROVIDERS: PCP Nurse Practitioner; Visit Provider Nurse Practitioner | DX: F41.1 Generalized anxiety disorder (principal); J30.1 Allergic rhinitis due to pollen; K02.9 Dental caries, unspecified; I25.10 Atherosclerotic heart disease of native coronary artery without angina pectoris; M54.41 Lumbago with sciatica, right side; M54.42 Lumbago with sciatica, left side; G89.29 Other chronic pain; I10 Essential (primary) hypertension | CPT/HCPCS: 80053; 80061; 83721; 84443 ==

== ENCOUNTER 2021-10-01 08:32 | Emergency (ER) | payer MEDICARE, SELFPAY ==
[2021-10-01 08:37] VITALS: BP 127/76; PULSE 97; RESP 22; TEMP 37; O2SAT 97; BMI 27.0
--- NOTE | 2021-10-01 08:45 | ED_ITS ---
HPI - URI/Sore Throat General: Chief Complaint: Upper Respiratory Infection Stated Complaint: Cough, Right side pain Time Seen by Provider: 10/01/21 08:35 Source: patient Mode of arrival: ambulatory Limitations: no limitations History of Present Illness: 66-year-old male who presents emergency room comp laining of productive cough for the last 3 weeks been progressively worse. He said green sputum production he is having right lower rib pain with coughing and with palpation he has not had any chest pain low-grade subjective fever. Patient does have a history of coronary disease previously had some stents. Denies any diarrhea no anosmia no dysuria urgency or frequency no abdominal pain. Patient is a smoker and has a known history of COPD. He did see his primary caregiver and was given an albuterol inhaler which she states has not helped. He has not been on any antibiotics or steroids. MD elicited complaint: cough Pertinent past history: COPD Onset (ago): week(s) (3) Consistency: constant Severity: moderate Description of mucous: green Exacerbating factors: exertion and deep breaths Relieving factors: nothing Associated symptoms: Reports congestion, cough and short of breath; Deny abdominal pain, change in voice, chills, chest pain, diarrhea, epistaxis, ear or mastoid pain, fever(s), headache(s), myalgias, nasal congestion, nausea, rash, rhinorrhea, sinus pain, stiffness, sore throat or vomiting Treatments prior to arrival: none Review of Systems Const: Denies: fever(s) or chills ENMT: Denies: throat pain, ear or mastoid pain, nasal congestion, epistaxis or sinus pain Card: Denies: chest pain Resp: Reports: dyspnea, productive cough, wheezing, pain on inspiration, change in phlegm color and chest congestion; Denies: hemoptysis GI: Denies: abdominal pain, nausea, vomiting, hematemesis, coffee ground emesis or diarrhea : Denies: flank pain, difficulty urinating, dysuria, urinary frequency or urinary urgency Neuro: Denies: headache(s) PFSH ED PFSH: Medical History Allergic rhinitis due to pollen Anxiety, generalized Atherosclerotic heart disease of [place] coronary artery without angina pectoris Chronic kidney disease, 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 Chronic obstructive pulmonary disease, unspecified Dyslipidemia Encounter for long-term use of opiate analgesic Essential (primary) hypertension History of compression fracture of spine Inability to maintain erection Nicotine dependence Opioid contract exists Personal history of nicotine dependence Surgical History H/O eye surgery Stented coronary artery Status post for stent most recent 2018 Family History Other Cancer Diabetes Social History Smoking and tobacco status: current every day smoker (down to 1 pck every 2.5 days) cigarettes Packs smoked per day: 1 Quit status (tobacco): has quit using tobacco Former quit date comment: AUGUST 2019 Second hand smoke exposure: Yes Smoking risk assessment/counseling performed?: Yes Alcohol intake: never Desire information about alcohol rehabilitation?: No Counseling given: No Desire information about substance/drug rehabilitation?: No Counseling given: No Adopted: No Caregiver/support person: No Lives independently: Yes Household members: significant other and children Housing: House Marital status: / service: No Current occupational status: disabled History of recent travel: No Current gender identity: Male Physical Exam Const: GENERAL APPEARANCE: cooperative and comfortable ORIENTATION/CON SCIOUSNESS: Yes awake, Yes oriented to person, Yes oriented to place and Yes oriented to time HENMT: COMMON NORMALS: normocephalic, atraumatic and hearing grossly normal bilaterally HEAD & SCALP: normocephalic and atraumatic Neck/C-Spine: COMMON NORMALS: no JVD Chest: CHEST: Yes localized rib tenderness with anteroposterior compression (Right lower ribs) Resp: AUSCULTATION: rhonchi and wheezes Cardio: COMMON NORMALS: no JVD, regular rate, regular rhythm and No murmurs present (Cardio) RATE: regular rate RHYTHM: regular rhythm GI: COMMON NORMALS: Soft to palpation and No hepatosplenomegaly present AUSCULTATION: Yes normoactive bowel sounds PALPATION: Yes Soft to palpation, No Tenderness to palpation present (GI), No Guarding due to palpation present (GI) and Yes No hepatosplenomegaly present Extremity: COMMON NORMALS: normal to inspection, capillary refill normal, no clubbing, cyanosis or edema, no calf tenderness and no pedal edema Neuro: SENSORIUM/ORIENTATION: Yes oriented to person, Yes oriented to place and Yes oriented to time Skin: COMMON NORMALS: no rashes or lesions noted GENERAL SKIN EXAM: no rashes or lesions noted Course Vital Signs: Vital signs: Vital Signs Temperature 98.6 F 10/01/21 08:37 Pulse Rate 86 10/01/21 11:20 Respiratory Rate 20 H 10/01/21 11:20 Blood Pressure 139/82 10/01/21 11:20 Pulse Oximetry 96 10/01/21 11:20 MDM - URI/Sore Throat Medical Decision Making Labs and imaging reviewed. Patient has severe right lower rib pain is easily reproducible with mild palpation on the lower ribs. Same pain that brought him in. He is musculoskeletal due to his coughing. We will go ahead and start him on some doxycycline because he has a productive cough his chest x-ray was normal. Also get a put him on a prednisone burst and taper he has an albuterol inhaler should use at at least 3-4 times per day up to every 2 hours as needed. Also recommend that he follow-up with his primary care doctor within the next week. If he has any worsening or change symptoms asked to return to his primary care or to the emergency room. Lab Data : 10/01/21 09:07 10/01/21 09:07 Radiology Impressions Chest X-Ray 10/01/21 08:45 IMPRESSION: No acute findings. Laboratory Results WBC 9.8 10^3/uL (4.0-10.0) 10/01/21 09:07 RBC 5.30 10^6/uL (4.1-5.3) 10/01/21 09:07 Hgb 15.5 g/dL (11.7-16.6) 10/01/21 09:07 Hct 45.7 % (42.0-52.0) 10/01/21 09:07 MCV 86.2 fl (80-94) 10/01/21 09:07 MCH 29.2 pg (28.0-34.0) 10/01/21 09:07 MCHC 33.9 g/dL (30.0-36.0) 10/01/21 09:07 RDW 13.7 % (12.1-15.1) 10/01/21 09:07 Plt Count 245 10^3/cmm (130-400) 10/01/21 09:07 MPV 9.7 fL (7.4-10.4) 10/01/21 09:07 Neut % (Auto) 64.0 % 10/01/21 09:07 Lymph % (Auto) 26.8 % 10/01/21 09:07 [place] % (Auto) 7.3 % 10/01/21 09:07 Eos % (Auto) 1.4 % 10/01/21 09:07 Baso % (Auto) 0.1 % 10/01/21 09:07 Neut # (Auto) 6.25 10^3/uL (1.8-7.7) 10/01/21 09:07 Lymph # (Auto) 2.6 10^3/uL (0.8-4.8) 10/01/21 09:07 [place] # (Auto) 0.7 10^3/uL (0.2-0.9) 10/01/21 09:07 Eos # (Auto) 0.1 10^3/uL (0.0-0.8) 10/01/21 09:07 Baso # (Auto) 0.0 10^3/uL (0.0-0.1) 10/01/21 09:07 Nucleated RBC % (auto) 0 % 10/01/21 09:07 Nucleated RBCs # 0.0 /100WBC 10/01/21 09:07 Sodium 138 mmol/L (136-145) 10/01/21 09:07 Potassium 3.4 mmol/L (3.5-5.1) L 10/01/21 09:07 Chloride 98 mmol/L (98-107) 10/01/21 09:07 Carbon Dioxide 27 mmol/L (22-29) 10/01/21 09:07 Anion Gap 16.4 (5-19) 10/01/21 09:07 BUN 8 mg/dL (8-23) 10/01/21 09:07 Creatinine 1.2 mg/dL (0.7-1.2) 10/01/21 09:07 GFR Calculation 60.4 mL/min (90-130) L 10/01/21 09:07 Glucose 110 mg/dL (65-115) 10/01/21 09:07 Calculated Osmolality 285 mOsm/kg (285-295) 10/01/21 09:07 Calcium 8.2 mg/dL (8.5-10.5) L 10/01/21 09:07 Total Bilirubin 0.4 mg/dL (0.15-1.2) 10/01/21 09:07 AST 22 U/L (0-40) 10/01/21 09:07 ALT 48 U/L (0-41) H 10/01/21 09:07 Alkaline Phosphatase 149 IU/L (40-130) H 10/01/21 09:07 Total Protein 7.1 g/dL (6.6-8.7) 10/01/21 09:07 Albumin 4.1 g/dL (3.5-5.2) 10/01/21 09:07 Globulin 3.0 g/dL (1.3-4.6) 10/01/21 09:07 Discharge Plan Discharge Patient Disposition: Home Clinical Impression: Acute exacerbation of chronic obstructive pulmonary disease (COPD), Bronchitis, Rib pain on right side Condition: Stable Prescriptions: New prednisone 20 mg tablet 20 mg PO TID Qty: 15 0RF Rx Instructions: 1 p.o. 3 times daily x3 days, 1 p.o. twice daily x2 days, 1 p.o. daily x2 days levofloxacin 750 mg tablet 750 mg PO DAILY 7 Days 0RF No Action hydrocodone-acetaminophen 10-325 mg tablet 1 tab PO TID PRN (Reason: pain) 30 Days Qty: 90 0RF Rx Instructions: Fill on or after 06/02/21 hydrocodone-acetaminophen 10-325 mg tablet 1 tab PO TID PRN (Reason: pain) 30 Days Qty: 90 0RF Rx Instructions: Fill on or after 07/01/21 baclofen 20 mg tablet 10 mg PO BID PRN (Reason: muscle spasm) 90 Days Qty: 90 1RF gabapentin 600 mg tablet 600 mg PO BID 90 Days Qty: 180 1RF sildenafil [Viagra] 50 mg tablet 50 mg PO QDAY PRN (Reason: sexual activity) Qty: 10 5RF Rx Instructions: Do not take with Nitro (DME) pen needle, diabetic 33 gauge x /32 needle See Rx Instructions .ROUTE .MEDSUPPLY Qty: 100 5RF Rx Instructions: 1 time day bupropion HCl 150 mg tablet extended release 24 hr 150 mg PO QAM Qty: 90 1RF cetirizine [Zyrtec] 10 mg tablet 10 mg PO DAILY Qty: 90 1RF chlorhexidine gluconate 0.12 % mouthwash 15 ml BUCCAL BID Qty: 473 2RF citalopram [Celexa] 20 mg tablet 20 mg PO .at bedtime Qty: 90 1RF clopidogrel [Plavix] 75 mg tablet 75 mg PO QDAY Qty: 90 1RF trazodone 100 mg tablet 100 mg PO .at bedtime Qty: 90 1RF magnesium oxide 500 mg tablet 500 mg PO BID Qty: 180 1RF albuterol sulfate [ProAir HFA] 90 mcg/actuation HFA aerosol inhaler 2 puff INHALATION QID PRN (Reason: shortness of breath or wheezing) 30 Days Qty: 6.7 2RF budesonide-formoterol [Symbicort] 160-4.5 mcg/actuation HFA aerosol inhaler 2 puff inhalation BID Qty: 10.2 0RF prednisone 20 mg tablet 20 mg PO BID Qty: 10 0RF doxycycline hyclate 100 mg capsule 100 mg PO BID Qty: 20 0RF promethazine-DM 6.25-15 mg/5 mL syrup 5 - 10 ml PO Q6H PRN (Reason: cough) Qty: 240 0RF atorvastatin 40 mg tablet 40 mg PO DAILY Qty: 90 3RF epinephrine [EpiPen 2-Juan] 0.3 mg/0.3 mL auto-injector 0.3 mg IM ONCE PRN (Reason: anaphylaxis sting) Qty: 2 1RF Rx Instructions: as a single dose nitroglycerin [Nitrostat] 0.4 mg tablet, sublingual 0.4 mg SUBLINGUAL Q5M PRN (Reason: chest pain) Qty: 25 1RF Rx Instructions: DO NOT take with Viagra Repatha Syringe 140 mg/mL syringe 140 mg SUBCUT .every 14 days Qty: 6 0RF aspirin 81 mg Tablet,Delayed Release (Dr/Ec) 81 mg PO DAILY 0RF Discharge Orders: Discharge ED (Routine); Ordered 10/01/21 Ordered By: Tino Hickman Referrals: Anjali Cunha, [facility] [Primary Care Provider] - Discharge Diet: Usual diet Discharge Activity: Increase activity as tolerated Patient Instructions: Opioid Safety Activity Restrictions/Additional Instructions: Follow-up with your primary care doctor as needed. Coding Level of Care Code ED Grinder Operator Automatic for Chg Fwd Exam Comprehensive
--- NOTE | 2021-10-01 08:45 | XRR_ITS ---
PROCEDURE INFORMATION: Exam: XR Chest Exam date and time: 10/01/2021 9:14 AM Age: 66 years old Clinical indication: Cough and dyspnea; Additional info: Dyspnea/cough TECHNIQUE: Imaging protocol: XR of the chest. Views: 1 view. COMPARISON: CR XR chest 2V* [id number] 06/02/2021 10:56 AM FINDINGS: Lungs: Lungs are clear. Pleural spaces: There is no pleural effusion or pneumothorax. Heart/Mediastinum: Cardiomediastinal contours are unremarkable. Bones/joints: Bones are unremarkable. XR/XR chest 1V portable [id number] IMPRESSION: No acute findings.
--- NOTE | 2021-10-01 08:51 | ECG_ITS ---
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 Measurements Intervals [place] Rate: 80 P: 60 UT: 133 QRS: 24 QRSD: 88 T: 43 QT: 383 QTc: 444 Interpretive Statements SINUS RHYTHM NONSPECIFIC ST & T-WAVE ABNORMALITY Compared to ECG 12/19/2016 17:44:37 Prolonged QT interval no longer present T-wave abnormality still present Electronically Signed On 10-01-2021 9:34:15 CDT by Darin Aguilar M.D. [id number]
[2021-10-01 09:16] VITALS: BP 90/70; PULSE 81; RESP 14; O2SAT 97
[2021-10-01 09:23] LABS: Basophils % 0.1 %; Eosinophils # 0.1 10^3/uL (0.0-0.8); Eosinophils % 1.4 %; Hematocrit 45.7 % (42.0-52.0); Hemoglobin 15.5 g/dL (11.7-16.6); Lymphocytes # 2.6 10^3/uL (0.8-4.8); Lymphocytes % 26.8 %; Mean Corpuscular HGB Conc 33.9 g/dL (30.0-36.0); Mean Corpuscular Hemoglobin 29.2 pg (28.0-34.0); Mean Corpuscular Volume 86.2 fl (80-94); Mean Platelet Volume 9.7 fL (7.4-10.4); Monocytes # 0.7 10^3/uL (0.2-0.9); Monocytes % 7.3 %; Neutrophils # 6.25 10^3/uL (1.8-7.7); Nucleated Red Blood Cells % 0 %; Platelet Count 245 10^3/cmm (130-400); Red Cell Distribution Width 13.7 % (12.1-15.1); White Blood Count 9.8 10^3/uL (4.0-10.0)
[2021-10-01 09:48] LABS: Alanine Aminotransferase 48 U/L (0-41); Albumin Level 4.1 g/dL (3.5-5.2); Alkaline Phosphatase 149 IU/L (40-130); Anion Gap 16.4 (5-19); Aspartate Amino Transferase 22 U/L (0-40); Blood Urea Nitrogen 8 mg/dL (8-23); Calcium 8.2 mg/dL (8.5-10.5); Carbon Dioxide 27 mmol/L (22-29); Chloride 98 mmol/L (98-107); Glomerular Filtration Rate 60.4 mL/min (90-130); Glucose 110 mg/dL (65-115); Osmolality Calculated 285 mOsm/kg (285-295); Potassium 3.4 mmol/L (3.5-5.1); Sodium 138 mmol/L (136-145); Total Bilirubin 0.4 mg/dL (0.15-1.2); Total Protein 7.1 g/dL (6.6-8.7)
[2021-10-01 11:20] VITALS: BP 139/82; PULSE 86; RESP 20; O2SAT 96
== END 2021-10-01 10:47 | disposition home or self-care (01) ==
PROVIDERS: Emergency Provider Family Medicine; PCP Nurse Practitioner
DX: J44.1 Chronic obstructive pulmonary disease with (acute) exacerbation (principal); F17.210 Nicotine dependence, cigarettes, uncomplicated; R07.81 Pleurodynia
CPT/HCPCS: 71045; 80053; 85025; 87070; 87205; 93005

== ENCOUNTER → 2022-03-02 10:12 | Outpatient (BNVA) | payer MEDICARE, SELFPAY | PROVIDERS: PCP Nurse Practitioner; Visit Provider Nurse Practitioner | DX: E78.5 Hyperlipidemia, unspecified (principal) | CPT/HCPCS: 80053; 80061 ==

== ENCOUNTER → 2022-07-22 10:48 | Outpatient (BNVA) | payer MEDICARE, SELFPAY | PROVIDERS: PCP Nurse Practitioner; Visit Provider Nurse Practitioner | DX: E78.5 Hyperlipidemia, unspecified (principal) | CPT/HCPCS: 80053; 80061; 85025 ==

== ENCOUNTER → 2022-10-07 09:29 | Outpatient (BNVA) | payer MEDICARE, SELFPAY | PROVIDERS: PCP Nurse Practitioner; Visit Provider Nurse Practitioner | DX: J44.9 Chronic obstructive pulmonary disease, unspecified (principal); F41.1 Generalized anxiety disorder; J30.1 Allergic rhinitis due to pollen; K02.9 Dental caries, unspecified; I25.10 Atherosclerotic heart disease of native coronary artery without angina pectoris; M54.41 Lumbago with sciatica, right side; E78.5 Hyperlipidemia, unspecified; M54.42 Lumbago with sciatica, left side; G89.29 Other chronic pain; R73.9 Hyperglycemia, unspecified; Z87.891 Personal history of nicotine dependence; Z95.5 Presence of coronary angioplasty implant and graft | CPT/HCPCS: 83036 ==

== ENCOUNTER → 2022-12-30 09:47 | Outpatient (BNVA) | payer MEDICARE, SELFPAY | PROVIDERS: PCP Nurse Practitioner; Visit Provider Nurse Practitioner | DX: E78.5 Hyperlipidemia, unspecified (principal) | CPT/HCPCS: 80053; 80061; 83036; 85025 ==

== ENCOUNTER → 2023-01-10 15:18 | Outpatient (BNVA) | payer MEDICARE, SELFPAY | PROVIDERS: PCP Nurse Practitioner; Visit Provider Otolaryngology | DX: H61.91 Disorder of right external ear, unspecified (principal) | CPT/HCPCS: 99204 ==

== ENCOUNTER 2023-01-18 10:44 | Day surgery (SDC) | payer MEDICARE, SELFPAY ==
[2023-01-18] VITALS (10 sets, daily range): BP systolic 110–130; BP diastolic 65–77; PULSE 59–68; RESP 15–18; TEMP 36.2–36.4; O2SAT 92–99
[2023-01-18] MEDS: sodium chloride 0.9% 1,000 ML 30 ML IV (11:21)
--- NOTE | 2023-01-18 11:35 | ANES.PREANE2 ---
Pre-Anesthetic Assessment Height/Weight: Height 1.75 m Weight 79.379 kg Temp Pulse Resp BP Pulse Ox O2 Del Method 97.3 F L 63 18 126/77 99 Room Air 01/18/23 11:05 01/18/23 11:05 01/18/23 11:05 01/18/23 11:05 01/18/23 11:05 01/18/23 11:14 Preop Diagnosis: Right postauricular skin lesion Operation Date: 01/18/23 12:30 Proposed Procedures p excision of post auricular lesion w/repair, w/possible skin graft, w/frozen section-[id number] h61.91(Right) - Rahat Mcmahon MD Familial anesthetic complications: None Was Beta Angela taken within 24 hours: N/A Was Clonidine taken within 24 hours: N/A Last intake: Intake Last Liquid Date 01/17/23 Last Liquid Time 22:30 Last Solid Date 01/17/23 Last Solid Time 20:00 Social Tobacco and No alcohol Exam alert, oriented x 3, clear to auscultation bilaterally and regular rate & rhythm Airway Mallampati: Class III Dentition: other ( remaining teeth) Comments: Comments: full hernandez Pulmonary Chronic Obstructive Pulmonary Disease CV/HEM Coronary Artery Disease (5 stents, most recent cath clear of disease) and Hypertension Metabolic Hyperlipidemia Anesthetic Plan ASA status: 3 Anesthesia: MAC Risk of > 500 ml blood loss (7ml/kg in children): No Medications/Allergies Home Medications Medication Instructions Recorded Confirmed Last Taken Type aspirin 81 mg tablet,delayed 81 mg PO DAILY 10/13/19 01/18/23 01/10/23 History release pen needle, diabetic 33 gauge x #100 ea 04/23/21 01/10/23 Unknown Rx epinephrine 0.3 mg/0.3 mL 0.3 mg (0.3 mL) IM ONCE PRN 05/18/21 01/18/23 Unknown Rx injection, auto-injector (EpiPen anaphylaxis sting #2 ea 2-Juan) baclofen 20 mg tablet 10 mg PO BID PRN muscle spasm 90 03/02/22 01/18/23 01/17/23 Rx days #90 tabs nitroglycerin 0.4 mg sublingual 0.4 mg sublingual Q5M PRN chest 11/08/22 01/18/23 Unknown Rx tablet (Nitrostat) pain #25 tabs albuterol sulfate 90 mcg/actuation 2 puff inhalation QID PRN 12/30/22 01/18/23 01/03/23 Rx aerosol inhaler (ProAir HFA) shortness of breath or wheezing 30 days #6.7 grams atorvastatin 40 mg tablet 40 mg PO DAILY #30 tabs 12/30/22 01/18/23 01/17/23 Rx bupropion HCl 150 mg 24 hr tablet, 150 mg PO QAM #30 tabs 12/30/22 01/18/23 01/17/23 Rx extended release cetirizine 10 mg tablet (Zyrtec) 10 mg PO DAILY #30 tabs 12/30/22 01/18/23 01/17/23 Rx chlorhexidine gluconate 0.12 % 15 ml buccal BID #473 mL 12/30/22 01/18/23 01/17/23 Rx mouthwash citalopram 20 mg tablet (Celexa) 20 mg PO .at bedtime #30 tabs 12/30/22 01/18/23 01/17/23 Rx clopidogrel 75 mg tablet (Plavix) 75 mg PO QDAY #30 tabs 12/30/22 01/18/23 01/10/23 Rx evolocumab 140 mg/mL subcutaneous 140 mg SUBCUT .every 14 days #2 mL 12/30/22 01/18/23 01/10/23 Rx pen injector (Leilani Kiser) gabapentin 600 mg tablet 600 mg PO BID pain #60 tabs 12/30/22 01/18/23 01/17/23 Rx icosapent ethyl 1 gram capsule 2 g PO BID #120 caps 12/30/22 01/18/23 01/17/23 Rx (Vascepa) magnesium oxide 500 mg tablet 500 mg PO BID #60 tabs 12/30/22 01/18/23 01/17/23 Rx trazodone 100 mg tablet 100 mg PO .at bedtime #30 tabs 12/30/22 01/18/23 01/17/23 Rx hydrocodone 10 mg-acetaminophen 1 tab PO TID PRN pain 30 days #90 01/04/23 01/18/23 01/17/23 Rx 325 mg tablet tabs Allergies Allergy/AdvReac Type Severity Reaction Status Date / Time venom-wasp Allergy swelling Verified 01/17/23 10:45 Current Medications Generic Name Dose Route Start Last Admin Trade Name Alexisq PRN Reason Stop Dose Admin Sodium Chloride 1,000 mls @ 30 mls/hr 01/18/23 11:15 01/18/23 11:21 Sodium Chloride 0.9% IV 01/19/23 11:14 30 mls/hr .Q24H CHRIS Administration PFSH Anesthesia Medical History Allergic rhinitis due to pollen Anxiety, generalized Atherosclerotic heart disease of [place] coronary artery without angina pectoris Chronic kidney disease, 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 Chronic obstructive pulmonary disease, unspecified Dyslipidemia Encounter for long-term use of opiate analgesic Essential (primary) hypertension History of compression fracture of spine Inability to maintain erection Nicotine dependence Opioid contract exists Personal history of nicotine dependence Surgical History H/O eye surgery Stented coronary artery Status post for stent most recent 2018 Family History Other Cancer Diabetes Social History Smoking and tobacco status: current every day smoker cigarettes Packs smoked per day: 0.5 Years cigarettes smoked: 42 Quit status (tobacco): considering quitting Second hand smoke exposure: Yes Smoking risk assessment/counseling performed?: Yes Alcohol intake: never Desire information about alcohol rehabilitation?: No Counseling given: No Substance/Drug Use: never Desire information about substance/drug rehabilitation?: No Counseling given: No Adopted: No Caregiver/support person: No Lives independently: Yes Household members: significant other and children Housing: House Marital status: / service: No Current occupational status: disabled Do you think of yourself as: Straight/Heterosexual Current gender identity: Male Data Anesthesia Cardiac Studies: Sestamibi Stress Test (Cardiology) 12/26/20
--- NOTE | 2023-01-18 12:02 | W.PM.OPSUD ---
Surgery/Procedure H&P Update DATE OF PROCEDURE: January 18, 2023 DATE H&P PERFORMED: 01/10/23 H&P UPDATE INFORMATION: I have reviewed H&P completed within last 30 days, I have examined patient prior to procedure and No changes to prior documentation CHANGES TO PREVIOUS DOCUMENTATION: No changes PREOP DIAGNOSIS: Right postauricular skin lesion PRIMARY INDICATION FOR PROCEDURE: Right posterior auricular skin lesion PLANNED PROCEDURE: Operation Date: 01/18/23 12:30 Proposed Procedures p excision of post auricular lesion w/repair, w/possible skin graft, w/frozen section-[id number] h61.91(Right) - Rahat Mcmahon MD
[2023-01-18] MEDS: ceFAZolin 2,000 MG in sodium chloride 0.9% (plus) 50 ML 100 MG IV (13:31)
[2023-01-18] MEDS: lidocaine-epi 2% 1.7mL Cartridge (OR Only) 8.5 ML INJECTION (13:40)
[2023-01-18] MEDS: neomycin-poly-bacitracin oint 28 gm 1 APPLIC TOPICAL (14:25)
--- NOTE | 2023-01-18 14:27 | P.OP_ITS ---
Operative Report Date of procedure: January 18, 2023 Pre-op diagnosis: Right posterior auricular lesion Post-op diagnosis: Same Post-op findings: Verrucoid lesion on the posterior auricular surface midportion Procedure done: Excision of right posterior auricular lesion with multilayer primary closure. Length of incision 4 cm x 2 cm Implants: . No implants Specimens removed/disposition: Right posterior auricular skin lesion Pathology: Right posterior auricular skin lesion with inferior aspect marked with suture. Frozen section returned as likely verrucoid lesion without evidence of carcinoma. Defer to permanents. Surgeon: Rahat Mcmahon MD Anesthesia: General and Local Estimated blood loss: 5 mL Complications: No complications encountered Findings: 1.3 cm rounded exophytic papillomatous lesion on posterior surface of right auricle. Brief History: 67-year-old male patient had a lesion with ulcerative center and raised border behind his right ear. It appeared as if it might be a basal cell carcinoma and therefore the patient is being brought to the operating room to undergo excision under combined general and local anesthesia and repair after diagnosis on frozen section and margins were obtained. The procedures risks and complications were explained in detail in the office setting. These risks included bleeding infection numbness scarring swelling bruising potential cosmetic change and potential need for additional treatment. It is understood that a possible skin graft from the neck would be necessary to close the defect. More serious risks included anesthetic risks. With these things understood informed consent was granted and witnessed. Procedure: Description of procedure: The patient was placed on the operating table in the supine position. Adequate general LMA anesthesia was obtained. He received Ancef IV for prophylaxis. He was repositioned into a semirecumbent position. His hair was trimmed with an electric razor or tremor on the neck where the skin graft might be harvested from and around the ear posteriorly. Then the ear posteriorly was cleansed with alcohol and li the site was noted. A total of 8.5 mL of 2% Xylocaine with 1 100,000 epinephrine was used to infiltrate behind the ear itself and in the neck at the potential donor site. The patient was then prepped and draped in usual fashion. After adequate time was used for the ChloraPrep to dry the patient was draped. The posterior auricular lesion was evaluated and it did appear to have papilliform type projections with the area cleansed and with bending the ear. This was actually a good sign as it might be a verruca's lesion. A fusiform excision pattern from superior to inferior was drawn out measuring 4 cm by a maximum width of 2 cm. The incision was created with a 15 blade carrying it down to the perichondrium layer. It was excised in that layer and the inferior aspect was marked with a 5-0 nylon suture. This was forwarded to pathology for frozen section. While that was pending the bleeding was controlled with bipolar cautery. The pathology returned as verrucous lesion without any evidence of malignancy and no evidence of squamous cell carcinoma. margins were clear. Therefore the incision was closed after assuring that there was no bleeding in 2 layers where a 3-0 Vicryl was placed in a horizontal mattress fashion centrally and 4-0 chromic was used for horizontal mattresses superiorly and inferiorly. This closed the skin together nicely. Skin raul were then placed to close the skin. The area was cleansed. Neosporin ointment was applied and OpSite was applied over that. Drapes were removed and the patie nt was returned to anesthesia for wake-up and transport to recovery. The patient tolerated the procedure well had an estimated blood loss of 5 mL and arrived in recovery in stable condition.
--- NOTE | 2023-01-18 15:00 | ANE.PACU2 ---
Inpatient post-anesthesia follow up: Airway intact: Yes Vital signs: Temperature 97.2 F Pulse Rate 66 Respiratory Rate 16 Blood Pressure 130/75 Pulse Oximetry 94 Oxygen Delivery Me thod Room Air Oxygen Flow Rate 6 Fraction of Inspir ed Oxygen Hydration adequate: Yes Pain level: 1 Mental status: Baseline
== END 2023-01-18 15:55 | disposition home or self-care (01) ==
PROVIDERS: PCP Nurse Practitioner; Visit Provider Otolaryngology
PROC: (CPT 11442; principal; 2023-01-18 12:30)
DX: H61.91 Disorder of right external ear, unspecified (principal); L98.9 Disorder of the skin and subcutaneous tissue, unspecified; J44.9 Chronic obstructive pulmonary disease, unspecified; I25.10 Atherosclerotic heart disease of native coronary artery without angina pectoris; Z95.5 Presence of coronary angioplasty implant and graft; E78.5 Hyperlipidemia, unspecified; Z79.82 Long term (current) use of aspirin; I12.9 Hypertensive chronic kidney disease with stage 1 through stage 4 chronic kidney disease, or unspecified chronic kidney disease; N18.2 Chronic kidney disease, stage 2 (mild); F17.210 Nicotine dependence, cigarettes, uncomplicated
CPT/HCPCS: 11442; 12052; 88304; 88331; J0690; J2250; J2704; J3010; J7030

== ENCOUNTER → 2023-01-28 09:03 | Outpatient (BNVA) | payer MEDICARE, SELFPAY | PROVIDERS: PCP Nurse Practitioner; Visit Provider Otolaryngology | DX: H61.91 Disorder of right external ear, unspecified (principal); Z48.89 Encounter for other specified surgical aftercare | CPT/HCPCS: 99024 ==

== ENCOUNTER → 2023-02-21 08:31 | Outpatient (BNVA) | payer MEDICARE, SELFPAY | PROVIDERS: PCP Nurse Practitioner; Visit Provider Otolaryngology | DX: Z48.89 Encounter for other specified surgical aftercare (principal) | CPT/HCPCS: 99024; 99212 ==

== ENCOUNTER → 2023-06-16 10:11 | Outpatient (BNVA) | payer MEDICARE, SELFPAY | PROVIDERS: PCP Nurse Practitioner; Visit Provider Nurse Practitioner | DX: E11.9 Type 2 diabetes mellitus without complications (principal) | CPT/HCPCS: 80053; 80061; 81000; 82607; 83036 ==

== ENCOUNTER → 2023-06-21 10:02 | Outpatient (BNVA) | payer MEDICARE, SELFPAY | PROVIDERS: PCP Nurse Practitioner; Visit Provider Otolaryngology | DX: L98.9 Disorder of the skin and subcutaneous tissue, unspecified (principal); K02.9 Dental caries, unspecified; J44.9 Chronic obstructive pulmonary disease, unspecified; Z95.5 Presence of coronary angioplasty implant and graft; I25.10 Atherosclerotic heart disease of native coronary artery without angina pectoris; E78.5 Hyperlipidemia, unspecified | CPT/HCPCS: 99215 ==

== ENCOUNTER 2023-06-27 09:31 | Day surgery (SDC) | payer MEDICARE, SELFPAY ==
[2023-06-27] VITALS (10 sets, daily range): BP systolic 118–150; BP diastolic 69–90; PULSE 70–83; RESP 10–18; TEMP 36.1–36.4; O2SAT 92–98; BMI 25.9
[2023-06-27] MEDS: sodium chloride 0.9% 1,000 ML 30 ML IV (10:02)
--- NOTE | 2023-06-27 10:22 | W.PM.OPSUD ---
Surgery/Procedure H&P Update DATE OF PROCEDURE: June 27, 2023 DATE H&P PERFORMED: 06/21/23 H&P UPDATE INFORMATION: I have reviewed H&P completed within last 30 days, I have examined patient prior to procedure and No changes to prior documentation CHANGES TO PREVIOUS DOCUMENTATION: No changes PREOP DIAGNOSIS: Right nasal tip lesion PRIMARY INDICATION FOR PROCEDURE: Right anterior nasal skin lesion with ulceration near nasal tip. PLANNED PROCEDURE: Operation Date: 06/27/23 11:20 Proposed Procedures p excision of nasal tip lesion and repair w/ frozen section-80790, L89.9(Not Applicable) - Rahat Mcmhaon MD
--- NOTE | 2023-06-27 11:16 | ANES.PREANE2 ---
Pre-Anesthetic Assessment Height/Weight: Height 1.75 m Weight 79.832 kg Temp Pulse Resp BP Pulse Ox O2 Del Method 97.6 F 70 18 136/81 98 Room Air 06/27/23 09:47 06/27/23 09:47 06/27/23 09:47 06/27/23 09:47 06/27/23 09:47 06/27/23 09:47 Preop Diagnosis: Right nasal tip lesion Operation Date: 06/27/23 11:20 Proposed Procedures p excision of nasal tip lesion and repair w/ frozen section-63773, L89.9(Not Applicable) - Rahat Mcmahon MD Was Beta Angela taken within 24 hours: N/A Was Clonidine taken within 24 hours: N/A Last intake: Intake Last Liquid Date 06/27/23 Last Liquid Time 23:30 Last Solid Date 06/25/23 Last Solid Time 17:00 Social Tobacco 0.5+ pack(s) per day Smoked today Exam alert and oriented x 3 Airway Submandibular: within normal limits Cervical ROM: within normal limits Mallampati: Class II Dentition: other Comments: Comments: Edentulous History/ROS No significant history except as noted and No significant complaints Pulmonary Chronic Obstructive Pulmonary Disease CV/HEM Coronary Artery Disease, Hypertension and Myocardial Infarction Cardiac stent, on plavix Musc/skel Lower Back Pain Chronic back pain, opioid contract Neuropsych Transient Ischemic Attack Anesthetic Plan ASA status: 3 Anesthesia: General Risk of > 500 ml blood loss (7ml/kg in children): No Medications/Allergies Home Medications Medication Instructions Recorded Confirmed Last Taken Type aspirin 81 mg tablet,delayed 81 mg PO DAILY 10/13/19 06/27/23 06/22/23 History release epinephrine 0.3 mg/0.3 mL 0.3 mg (0.3 mL) IM ONCE PRN 05/18/21 06/27/23 Unknown Rx injection, auto-injector (EpiPen anaphylaxis sting #2 ea 2-Juan) baclofen 20 mg tablet 10 mg (1/2 x 20 mg) PO BID PRN 03/02/22 06/27/23 06/27/23 Rx muscle spasm 90 days #90 tabs nitroglycerin 0.4 mg sublingual 0.4 mg sublingual Q5M PRN chest 11/08/22 06/27/23 Unknown Rx tablet (Nitrostat) pain #25 tabs clopidogrel 75 mg tablet (Plavix) 75 mg PO QDAY #30 tabs 03/10/23 06/27/23 06/22/23 Rx hydrocodone 10 mg-acetaminophen 1 tab PO TID PRN pain 30 days #90 06/06/23 06/27/23 06/27/23 Rx 325 mg tablet tabs albuterol sulfate 90 mcg/actuation 2 puff inhalation QID PRN 06/16/23 06/27/23 06/24/23 Rx aerosol inhaler (ProAir HFA) shortness of breath or wheezing 30 days #6.7 grams atorvastatin 40 mg tablet 40 mg PO DAILY #30 tabs 06/16/23 06/27/23 06/27/23 Rx bupropion HCl 150 mg 24 hr tablet, 150 mg PO QAM #30 tabs 06/16/23 06/27/23 06/27/23 Rx extended release cetirizine 10 mg tablet (Zyrtec) 10 mg PO DAILY #30 tabs 06/16/23 06/27/23 06/27/23 Rx chlorhexidine gluconate 0.12 % 15 ml buccal BID #473 mL 06/16/23 06/27/23 06/26/23 Rx mouthwash citalopram 20 mg tablet (Celexa) 20 mg PO .at bedtime #30 tabs 06/16/23 06/27/23 06/26/23 Rx evolocumab 140 mg/mL subcutaneous 140 mg SUBCUT .every 14 days #2 mL 06/16/23 06/27/23 06/23/23 Rx pen injector (Leilani Kiser) gabapentin 600 mg tablet 600 mg PO BID pain #60 tabs 06/16/23 06/27/23 06/27/23 Rx icosapent ethyl 1 gram capsule 2 g (2 x 1 gram) PO BID #120 caps 06/16/23 06/27/23 06/27/23 Rx (Vascepa) magnesium oxide 500 mg PO BID #60 tabs 06/16/23 06/27/23 06/27/23 Rx trazodone 100 mg tablet 100 mg PO .at bedtime #30 tabs 06/16/23 06/27/23 06/26/23 Rx Allergies Allergy/AdvReac Type Severity Reaction Status Date / Time venom-wasp Allergy swelling Verified 06/27/23 09:43 Current Medications Generic Name Dose Route Start Last Admin Trade Name Hiram PRN Reason Stop Dose Admin Sodium Chloride 1,000 mls @ 30 mls/hr 06/27/23 09:45 06/27/23 10:02 Sodium Chloride 0.9% IV 06/28/23 09:44 30 mls/hr .Q24H CHRIS Administration PFSH Anesthesia Medical History History of compression fracture of spine Personal history of nicotine dependence Inability to maintain erection Anxiety, generalized Nicotine dependence Dyslipidemia Encounter for long-term use of opiate analgesic Allergic rhinitis due to pollen Essential (primary) hypertension Chronic obstructive pulmonary disease, unspecified Chronic kidney disease, stage 2 (mild) Atherosclerotic heart disease of [place] coronary artery without angina pectoris Opioid contract 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 Surgical History H/O eye surgery Stented coronary artery Status post for stent most recent 2018 Family History Other Cancer Diabetes Social History Smoking and tobacco/nicotine status: current every day tobacco/nicotine user cigarettes Packs smoked per day: 0.5 Years cigarettes smoked: 42 Quit status (tobacco/nicotine): considering quitting Second hand smoke exposure: Yes Alcohol intake: never Substance/Drug Use: never Adopted: No Caregiver/support person: No Lives independently: Yes Household members: significant other and children Housing: House Marital status: / service: No Current occupational status: disabled Do you think of yourself as: Straight/Heterosexual Current gender identity: Male Data Anesthesia Cardiac Studies: Sestamibi Stress Test (Cardiology) 12/26/20
[2023-06-27] MEDS: ceFAZolin 2,000 MG in sodium chloride 0.9% (plus) 50 ML 100 MG IV (12:24)
[2023-06-27] MEDS: lidocaine-epi 2% 1.7mL Cartridge (OR Only) 5.09999999999999964 ML XX (12:55)
[2023-06-27] MEDS: neomycin-poly-bacitracin oint 28 gm 1 APPLIC TOPICAL (13:07)
--- NOTE | 2023-06-27 13:26 | P.OP_ITS ---
Operative Report Date of procedure: June 27, 2023 Pre-op diagnosis: Right nasal tip ulcerative lesion Post-op diagnosis: Same pending pathology. Post-op findings: Ulcerative lesion with raised edges right nasal tip. Procedure done: Excision of malignant lesion of right nasal tip. 2.7 x 1.2 fusiform excision defect. Implants: No implants Specimens removed/disposition: Right nasal tip skin and lesion marked with suture right lateral Pathology: Same Surgeon: Rahat Mcmahon MD Anesthesia: General and Local Estimated blood loss: 1 5 mL Complications: No complications encountered Findings: Ulcerative lesion with 2 mm ulceration and extending with raised edges consistent with basal cell carcinoma appearance for approximately 4 to 5 mm total. Brief History: 68-year-old male patient has had a right nasal tip lesion developed over time with a small scab forming. It would then fall off and there would be a small ulcer. Over time it has gotten a larger ulcer as it is gone through the cycles. Recently lost another piece of scab and ulcer is now approximately 2 mm deep by 2 mm diameter surrounded by raised edges that extend for 4 to 5 mm total diameter. This is to the right of midline on the nasal tip but not to the edge of the lower lateral cartilage area. With the likelihood that this is a basal c ell carcinoma based on its lifecycle, I feel that it is appropriate to excise this with margins. Frozen section is not going to be available so will take an extra millimeter or 2 of margin to verify that we have clear margins. The procedure its risks and complications have been explained in detail. These risks include bleeding infection numbness scarring swelling bruising recurrence need for additional treatment and cosmetic change as well as anesthetic risk such as heart attack or stroke or not surviving the surgery. With these things understood informed consent was granted. Procedure: Description of procedure: The patient was placed on the operating table in the supine position. General LMA anesthesia was obtained. He was given Ancef IV for prophylaxis. Mechanical compression stockings in place. The table was turned 90 degrees. A timeout was accomplished identifying the patient date of plan procedure allergies fire risk and medications given. With all in agreement the procedure continued. I cleansed the patient's nose and noted the sign the site area on his nasal tip. This was cleansed with alcohol. Then I infiltrated the nose in a block fashion all the way up to the nasal dorsum and laterally over the lower lateral cartilages bilaterally and in the dome of the tip. This utilized a total of 5.1 mL of 2% Xylocaine with 1-100,000 epinephrine. Pressure was applied for several minutes. Then ChloraPrep was used to prep the patient's nasal skin and surrounding areas. The patient was then draped in usual fashion after allowing appropriate time for the ChloraPrep to dry. A marking pen was used to outline a fusiform excision pattern from lateral to lateral as the apices. The widest portion was superior to inferior. Measured out at 2.7 x 1.2 cm. The incision was created with a 15 blade carrying it down to the perichondrium over the lower and upper lateral cartilages. The right lateral apex was marked with a 3-0 silk suture. Sent to pathology fresh for them to handle. However frozen section was not available. Hemostasis was attained with bipolar cautery. Undermining was then accomplished to the nasal tip and the edge of the nares inferiorly and then superiorly up to the nasal dorsum. Again hemostasis was attained with bipolar cautery. Then after cleansing the area and making sure there was no active bleeding closure was accomplished with interrupted 4-0 Vicryl suture and the skin was closed with a running 5-0 nylon simple suture. Pressure was then applied for several minutes. No bleeding was encountered at this time. The area was cleansed and Neosporin ointment applied over the incision followed by a sterile Band-Aid. The drapes were removed and the remainder of the face was cleansed. Patient was then returned to anesthesia for wake-up and extubation. Patient tolerated the procedure well had an estimated blood loss of 15 mL and arrived in recovery in stable condition.
--- NOTE | 2023-06-27 18:40 | ANE.PACU2 ---
Inpatient post-anesthesia follow up: Airway intact: Yes Vital signs: Temperature 97.3 F Pulse Rate 78 Respiratory Rate 18 Blood Pressure 132/72 Pulse Oximetry 93 Oxygen Delivery Me thod Room Air Oxygen Flow Rate 6 Fraction of Inspir ed Oxygen Hydration adequate: Yes Nausea and vomiting: No Pain level: 1 Mental status: Baseline
== END 2023-06-27 14:44 | disposition home or self-care (01) ==
PROVIDERS: PCP Nurse Practitioner; Visit Provider Otolaryngology
PROC: 0HB1XZZ Excision of Face Skin, External Approach (ICD-10-PCS; CPT 11643; principal; 2023-06-27 11:10)
DX: C44.311 Basal cell carcinoma of skin of nose (principal); J44.9 Chronic obstructive pulmonary disease, unspecified; I25.10 Atherosclerotic heart disease of native coronary artery without angina pectoris; I25.2 Old myocardial infarction; Z59.5 Extreme poverty; Z79.02 Long term (current) use of antithrombotics/antiplatelets; Z79.891 Long term (current) use of opiate analgesic; Z95.5 Presence of coronary angioplasty implant and graft; Z79.82 Long term (current) use of aspirin; I12.9 Hypertensive chronic kidney disease with stage 1 through stage 4 chronic kidney disease, or unspecified chronic kidney disease; N18.2 Chronic kidney disease, stage 2 (mild); F17.210 Nicotine dependence, cigarettes, uncomplicated
CPT/HCPCS: 11643; 12052; 88304; J0690; J1100; J2371; J2405; J2704; J3010; J3490; J7030

== ENCOUNTER 2023-07-12 11:44 | Emergency (ER) | payer MEDICARE, SELFPAY ==
[2023-07-12] VITALS (65 sets, daily range): BP systolic 94–141; BP diastolic 49–69; PULSE 72–101; RESP 11–29; TEMP 37.2; O2SAT 88–99; BMI 26.6
--- NOTE | 2023-07-12 10:52 | ECG_ITS ---
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 Measurements Intervals [place] Rate: 84 P: 54 [place]: 149 QRS: 39 QRSD: 82 T: 46 QT: 358 QTc: 424 Interpretive Statements SINUS RHYTHM MINIMAL ST DEPRESSION [0.025+ mV ST DEPRESSION] Compared to ECG 10/01/2021 09:06:09 ST (T wave) deviation now present T-wave abnormality no longer present Electronically Signed On 07-12-2023 23:05:19 CDT by Kaci Osborn M.D. [id number]
--- NOTE | 2023-07-12 11:49 | XRR_ITS ---
PROCEDURE INFORMATION: Exam: XR Chest Exam date and time: 07/12/2023 12:23 PM Age: 68 years old Clinical indication: Dyspnea and shortness of breath TECHNIQUE: Imaging protocol: Radiologic exam of the chest. Views: 1 view. COMPARISON: CR XR chest 1V portable [id number] 10/01/2021 9:14 AM FINDINGS: Lungs: Unremarkable. No consolidation. Pleural spaces: Unremarkable. No pleural effusion. No pneumothorax. Heart/Mediastinum: Unremarkable. No cardiomegaly. Bones/joints: Unremarkable. XR/XR chest 1V portable [id number] IMPRESSION: No acute findings.
--- NOTE | 2023-07-12 11:50 | PC.NURSE ---
Nataliya [id number] TAB [id number] call for ride home
[2023-07-12] MEDS: ondansetron 2 mg/ML SDV 2 mL 4 MG IVP (11:55)
--- NOTE | 2023-07-12 12:10 | ED_ITS ---
HPI - SOB/Dyspnea 2 General: Chief Complaint: Shortness of Breath/Dyspnea Stated Complaint: Cough, Fever x 4 weeks Time Seen by Provider: 07/12/23 11:49 History of Present Illness: HPI Narrative: Patient presented to the ER by EMS with complaints of a 4-week history of worsening shortness of breath., Cough, off-and-on fever, sputum production is greenish in color. Patient presented to the [facility] and was requiring oxygen so they called EMS and had him sent here for further evaluation and treatment. 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 Surgical History H/O eye surgery Stented coronary artery Status post for stent most recent 2018 Family History Other Cancer Diabetes Social History Smoking and tobacco/nicotine status: current every day tobacco/nicotine user cigarettes Packs smoked per day: 0.5 Years cigarettes smoked: 42 Quit status (tobacco/nicotine): considering quitting Second hand smoke exposure: Yes Alcohol intake: never Substance/Drug Use: never Adopted: No Caregiver/support person: No Lives independently: Yes Household members: significant other and children Housing: House Marital status: / service: No Current occupational status: disabled Do you think of yourself as: Straight/Heterosexual Current gender identity: Male Physical Exam 2 Const: COMMON NORMALS: no acute distress, average body habitus, patient oriented x3, no limitations, healthy appearing, alert and well nourished HENMT: COMMON NORMALS: normocephalic, atraumatic, hearing grossly normal bilaterally, external ears normal, Normal external nose present, moist oral mucous membranes and oropharynx normal HEAD & SCALP: normocephalic and atraumatic NOSE: Normal external nose present EXTERNAL EAR: Yes external ears normal Eye: COMMON NORMALS: Equal, round and reactive pupils present, EOMs intact bilaterally, conjunctivae normal and no scleral icterus CONJUNCTIVA: Yes conjunctivae normal PUPIL: Yes Equal, round and reactive pupils present Neck/C-Spine: COMMON NORMALS: no JVD Chest: COMMONS NORMALS: normal inspection of the chest and normal palpation of entire chest wall Resp: COMMON NORMALS: normal respiratory effort, No retractions, No use of accessory muscles and clear to auscultation bilaterally AUSCULTATION: clear to auscultation bilaterally Cardio: COMMON NORMALS: no JVD, regular rate, regular rhythm, S1 normal heart sound present, S2 normal heart sound present, No gallops present (Cardio), No clicks present (Cardio), No murmurs present (Cardio) and No rub (Cardio) R ATE: regular rate RHYTHM: regular rhythm HEART SOUNDS: S1 normal heart sound present and S2 normal heart sound present GI: COMMON NORMALS: Normal to inspection, nondistended, normoactive bowel sounds present, Soft to palpation, non-tender, No hepatosplenomegaly present and no masses PALPATION: Yes Soft to palpation and Yes No hepatosplenomegaly present Neuro: COMMON NORMALS: patient oriented x3 SENSORIUM/ORIENTATION: Yes alert Course 2 Vital Signs: Vital signs: Vital Signs Temperature 99.0 F 07/12/23 11:46 Pulse Rate 97 07/12/23 17:10 Respiratory Rate 17 07/12/23 17:10 Blood Pressure 95/67 07/12/23 17:20 Pulse Oximetry 93 07/12/23 17:15 Oxygen Delivery Me thod Room Air 07/12/23 17:10 Oxygen Flow Rate 2 07/12/23 15:26 Fraction of Inspir ed Oxygen 2 07/12/23 13:15 MDM - SOB/Dyspnea Medical Decision Making Patient had lab work that included CBC CMP, PT/INR, D-dimer, baseline 2-hour troponin influenza COVID, all essentially was benign, chest x-ray showed no acute findings. Patient was given 125 mg Solu-Medrol 1 DuoNeb treatment. Is felt that this is a lot more likely an acute exacerbation of COPD. Patient will be placed on antibiotics and steroids and discharged home. Differential Diagnosis Likely acute exacerbation of chronic obstructive airways disease and community acquired pneumonia; Unlikely congestive heart failure, asthma with exacerbation or pulmonary embolism Medical Records I reviewed the patient's medical records. Lab Data I reviewed the patient's lab results. 07/12/23 12:43 07/12/23 12:43 Labs/Radiology: Radiology Impressions Chest X-Ray 07/12/23 11:49 IMPRESSION: No acute findings. Laboratory Results WBC 10.77 10^3/uL (3.29-11.43) 07/12/23 12:43 RBC 4.42 10^6/uL (3.85-5.65) 07/12/23 12:43 Hgb 13.20 g/dL (11.27-16.99) 07/12/23 12:43 Hct 38.0 % (37-53) 07/12/23 12:43 MCV 86.0 fl (82-101) 07/12/23 12:43 MCH 29.9 pg (27-33) 07/12/23 12:43 MCHC 34.7 g/dL (30-55) 07/12/23 12:43 RDW 12.7 % (12.1-15.1) 07/12/23 12:43 Plt Count 302 10^3/cmm (157-399) 07/12/23 12:43 MPV 9.7 fL (7.4-10.4) 07/12/23 12:43 Neut % (Auto) 79.2 % 07/12/23 12:43 Lymph % (Auto) 12.8 % 07/12/23 12:43 Cotton % (Auto) 7.4 % 07/12/23 12:43 Eos % (Auto) 0.0 % 07/12/23 12:43 Baso % (Auto) 0.1 % 07/12/23 12:43 Neut # (Auto) 8.53 10^3/uL (1.8-7.7) H 07/12/23 12:43 Lymph # (Auto) 1.4 10^3/uL (0.8-4.8) 07/12/23 12:43 Cotton # (Auto) 0.8 10^3/uL (0.2-0.9) 07/12/23 12:43 Eos # (Auto) 0.0 10^3/uL (0.0-0.8) 07/12/23 12:43 Baso # (Auto) 0.0 10^3/uL (0.0-0.1) 07/12/23 12:43 Nucleated RBC % (auto) 0 % 07/12/23 12:43 Nucleated RBCs # 0.0 /100WBC 07/12/23 12:43 PT 16.10 SECONDS (12.1-14.9) H 07/12/23 12:43 INR 1.24 (0.8-1.2) H 07/12/23 12:43 D-Dimer 0.87 ug/mLFEU (0-0.59) H 07/12/23 12:43 Sodium 139 mmol/L (136-145) 07/12/23 12:43 Potassium 4.5 mmol/L (3.5-5.1) 07/12/23 12:43 Chloride 103 mmol/L (98-107) 07/12/23 12:43 Carbon Dioxide 23 mmol/L (22-29) 07/12/23 12:43 Anion Gap 17.5 (5-19) 07/12/23 12:43 BUN 11 mg/dL (8-23) 07/12/23 12:43 Creatinine 0.9 mg/dL (0.7-1.2) 07/12/23 12:43 GFR Calculation 83.7 mL/min (90-130) L 07/12/23 12:43 Glucose 93 mg/dL (65-115) 07/12/23 12:43 Calculated Osmolality 287 mOsm/kg (285-295) 07/12/23 12:43 Calcium 9.7 mg/dL (8.5-10.5) 07/12/23 12:43 Magnesium 2.1 mg/dL (1.7-2.3) 07/12/23 12:43 Total Bilirubin 1.4 mg/dL (0.15-1.2) H 07/12/23 12:43 AST 33 U/L (0-40) 07/12/23 12:43 ALT 39 U/L (0-41) 07/12/23 12:43 Alkaline Phosphatase 79 U/L (40-130) 07/12/23 12:43 Troponin T Baseline 9 ng/L (0-15) 07/12/23 12:43 Troponin T 120 Minute 12.57 ng/L (0-15) 07/12/23 14:44 Delta Troponin T 3.57 ABS# (0-10) 07/12/23 14:44 Total Protein 7.0 g/dL (6.6-8.7) 07/12/23 12:43 Albumin 4.9 g/dL (3.5-5.2) 07/12/23 12:43 Globulin 2.1 g/dL (1.3-4.6) 07/12/23 12:43 Influenza Type A Ag negative (Negative) 07/12/23 12:00 Influenza Type B Ag negative (Negative) 07/12/23 12:00 SARS-CoV-2 Ag (Rapid) negative (Negative) 07/12/23 12:00 All radiology interpretation(s) finalized by discharge EKG Data EKG 1: I personally reviewed and interpreted this EKG as follows: EKG Interpretation Date: 07/12/23 EKG interpretation time: 10:52 Interpretation: Ventricular rate 84 bpm, ND interval 149, QRS duration 82, QTc of 3 9, sinus rhythm, EKG 2: I personally reviewed and interpreted this EKG as follows: EKG Interpretation Date: 07/12/23 EKG interpretation time: 13:12 Prior EKG tracings: available for review Interpretation: Ventricular rate 90 bpm, ND interval 152, QRS duration 82, QTc of 398, sinus rhythm Discharge Plan Discharge Patient Disposition: Home Clinical Impression: Acute exacerbation of chronic obstructive airways disease Condition: Stable Prescriptions: New cefdinir 300 mg capsule 300 mg PO BID 10 Days Qty: 20 0RF prednisone 50 mg tablet 50 mg PO DAILY Qty: 5 0RF No Action baclofen 20 mg tablet 10 mg PO BID PRN (Reason: muscle spasm) 90 Days Qty: 90 1RF albuterol sulfate [ProAir HFA] 90 mcg/actuation HFA aerosol inhaler 2 puff INHALATION QID PRN (Reason: shortness of breath or wheezing) 30 Days Qty: 6.7 5RF atorvastatin 40 mg tablet 40 mg PO DAILY Qty: 30 5RF bupropion HCl 150 mg tablet extended release 24 hr 150 mg PO QAM Qty: 30 5RF cetirizine [Zyrtec] 10 mg tablet 10 mg PO DAILY Qty: 30 5RF chlorhexidine gluconate 0.12 % mouthwash 15 ml BUCCAL BID Qty: 473 5RF Repatha SureClick 140 mg/mL pen injector 140 mg SUBCUT .every 14 days Qty: 2 5RF gabapentin 600 mg tablet 600 mg PO BID Qty: 60 5RF icosapent ethyl [Vascepa] 1 gram capsule 2 g PO BID Qty: 120 5RF magnesium oxide 500 mg magnesium tablet 500 mg PO BID Qty: 60 5RF epinephrine [EpiPen 2-Juan] 0.3 mg/0.3 mL auto-injector 0.3 mg IM ONCE PRN (Reason: anaphylaxis sting) Qty: 2 1RF Rx Instructions: as a single dose nitroglycerin [Nitrostat] 0.4 mg tablet, sublingual 0.4 mg SUBLINGUAL Q5M PRN (Reason: chest pain) Qty: 25 0RF Rx Instructions: DO NOT take with Viagra clopidogrel [Plavix] 75 mg tablet 75 mg PO QDAY Qty: 30 2RF hydrocodone-acetaminophen 10-325 mg tablet 1 tab PO TID PRN (Reason: pain) 30 Days Qty: 90 0RF aspirin 81 mg Tablet,Delayed Release (Dr/Ec) 81 mg PO DAILY Hold Instructions: Resume on 07/05/23. Symbicort 160-4.5 mcg/actuation HFA aerosol inhaler 2 puff INHALATION BID Celexa 20 mg tablet 20 mg PO BEDTIME trazodone 100 mg tablet 100 mg PO BEDTIME Discharge Orders: Discharge ED (Routine); Ordered 07/12/23 Ordered By: Vu Mireles Referrals: Anjali Cunha, [facility] [Primary Care Provider] - 1 week Patient Instructions: COPD (Chronic Obstructive Pulmonary Disease) (ED), Chronic Lung Disease and Infection Prevention (ED) Activity Restrictions/Additional Instructions: Your evaluation in ER did not show any signs of cardiac issues or pneumonia. Is felt you are having exacerbation of COPD. You will be placed on steroids and antibiotics, they will be sent to your pharmacy. Please take them all as directed. Please follow-up with your family practice physician within 7 days for further evaluation and treatment. Coding Level of Care Code ED Junior Programmer for Ju Harper
--- NOTE | 2023-07-12 12:41 | PC.PHAR ---
PT STATES IS UNABLE TO TAKE TABLETS OR CAPSULES FOR 3 WEEKS OR SO DUE TO THROWING THEM BACK UP. 07/12/23
[2023-07-12 12:46] LABS: Influenza A by IFA negative (Negative); Influenza B by IFA negative (Negative)
[2023-07-12 12:48] LABS: SARS Covid-2 Antigen negative (Negative)
[2023-07-12 12:52] LABS: Basophils % 0.1 %; Lymphocytes # 1.4 10^3/uL (0.8-4.8); Lymphocytes % 12.8 %; Mean Corpuscular HGB Conc 34.7 g/dL (30-55); Mean Corpuscular Hemoglobin 29.9 pg (27-33); Mean Platelet Volume 9.7 fL (7.4-10.4); Monocytes # 0.8 10^3/uL (0.2-0.9); Monocytes % 7.4 %; Neutrophils # 8.53 10^3/uL (1.8-7.7); Neutrophils % 79.2 %; Nucleated Red Blood Cells % 0 %; Platelet Count 302 10^3/cmm (157-399); Red Blood Count 4.42 10^6/uL (3.85-5.65); Red Cell Distribution Width 12.7 % (12.1-15.1); White Blood Count 10.77 10^3/uL (3.29-11.43)
[2023-07-12 13:03] LABS: INR 1.24 (0.8-1.2)
[2023-07-12 13:13] LABS: Alanine Aminotransferase 39 U/L (0-41); Albumin Level 4.9 g/dL (3.5-5.2); Alkaline Phosphatase 79 U/L (40-130); Blood Urea Nitrogen 11 mg/dL (8-23); Calcium 9.7 mg/dL (8.5-10.5); Carbon Dioxide 23 mmol/L (22-29); Chloride 103 mmol/L (98-107); Creatinine Clr Calc Pharmacy 82.2623; Globulin 2.1 g/dL (1.3-4.6); Glomerular Filtration Rate 83.7 mL/min (90-130); Glucose 93 mg/dL (65-115); Magnesium 2.1 mg/dL (1.7-2.3); Osmolality Calculated 287 mOsm/kg (285-295); Sodium 139 mmol/L (136-145); Total Bilirubin 1.4 mg/dL (0.15-1.2)
[2023-07-12 13:15] LABS: Anion Gap 17.5 (5-19); Aspartate Amino Transferase 33 U/L (0-40); Potassium 4.5 mmol/L (3.5-5.1)
[2023-07-12 13:17] LABS: Troponin(5th) Baseline 9 ng/L (0-15)
--- NOTE | 2023-07-12 13:22 | PC.NURSE ---
PT TRAE CALLED THE ED AND NOTIFIED THIS NURSE OF PT NOT TAKING HIS PLAVIX FOR THE PAST 3 WEEKS D/T FEELING SICK AND NAUSEOUS. PT ALSO COMPLAINED TO ABOUT HAVING R GROIN PAIN AND HAS HX OF BLOOD CLOTS. DR WINSLOW AWARE.
--- NOTE | 2023-07-12 13:49 | ECG_ITS ---
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 Measurements Intervals [place] Rate: 98 P: 60 TN: 152 QRS: 35 QRSD: 82 T: 38 QT: 343 QTc: 439 Interpretive Statements SINUS RHYTHM NONSPECIFIC ST & T-WAVE ABNORMALITY Compared to ECG 07/12/2023 10:52:56 T-wave abnormality now present ST (T wave) deviation no longer present Electronically Signed On 07-12-2023 23:21:58 CDT by Kaci Osborn M.D. [id number]
[2023-07-12 14:01] LABS: D Dimer 0.87 ug/mLFEU (0-0.59)
--- NOTE | 2023-07-12 14:11 | USCV_ITS ---
Woodrow Shafer Age: 68 Gender: M : 1955 Exam Date: 07/12/2023 14:25 Ordering Phys: Vu Mireles DO Technologist: CT Exam Location: [facility] [place] Indication: rt le pain PROCEDURES: Venous duplex imaging was performed in only the right lower extremity. In addition, the posterior tibial and peroneal trunk were evaluated. FINDINGS: Normal 2-D Doppler and augmentation and compressibility throughout the lower extremity venous structures. Additional imaging through the proximal calf veins also reveals no thrombus. Limited evaluation of the greater saphenous vein is patent with no thrombus. CONCLUSIONS No DVT right lower extremity. Dr. Jade Boston DO (Electronically Signed) Final Date: 12 July 2023 15:17 S
[2023-07-12 15:15] LABS: Troponin 5 2HR 12.57 ng/L (0-15); Troponin 5 2HR Delta 3.57 ABS# (0-10)
[2023-07-12] MEDS: ipratropium-albuterol 3 mL Neb INHALATION (15:29)
[2023-07-12] MEDS: methylPREDNISolone sod succ 125 mg/2 mL INJ IVP (15:42)
== END 2023-07-12 17:24 | disposition home or self-care (01) ==
PROVIDERS: Emergency Provider Emergency Medicine; PCP Nurse Practitioner
DX: J44.1 Chronic obstructive pulmonary disease with (acute) exacerbation (principal); Z79.02 Long term (current) use of antithrombotics/antiplatelets; Z79.82 Long term (current) use of aspirin; Z11.52 Encounter for screening for COVID-19; F17.210 Nicotine dependence, cigarettes, uncomplicated; E78.5 Hyperlipidemia, unspecified; I12.9 Hypertensive chronic kidney disease with stage 1 through stage 4 chronic kidney disease, or unspecified chronic kidney disease; N18.2 Chronic kidney disease, stage 2 (mild); I25.10 Atherosclerotic heart disease of native coronary artery without angina pectoris
CPT/HCPCS: 36415; 71045; 80053; 83735; 84484; 85025; 85378; 85610; 87426; 87804; 93005; 93971; 94640; 96374; 96375; 99285; J2405; J2930

== ENCOUNTER → 2023-07-18 11:24 | Outpatient (BNVA) | payer MEDICARE, SELFPAY | PROVIDERS: PCP Nurse Practitioner; Visit Provider Otolaryngology | DX: Z48.817 Encounter for surgical aftercare following surgery on the skin and subcutaneous tissue (principal); C44.311 Basal cell carcinoma of skin of nose | CPT/HCPCS: 99024 ==

== ENCOUNTER 2023-07-19 09:38 | Outpatient (CLI) | payer MEDICARE, SELFPAY ==
--- NOTE | 2023-07-19 09:45 | CT_ITS ---
WS: [id number] LDCT LUNG CANCER SCREENING HISTORY: Z87.891 - Personal history of nicotine dependence TECHNIQUE: Axial imaging performed from the apices to 1 cm below the costophrenic angles. Coronal and sagittal reformats are submitted with axial MIP series. All CT scans at [facility] use at least one of these dose optimization techniques: automated exposure control; mA and/or kV adjustment per patient size (includes targeted exams where dose is matched to clinical indication); or iterativ e reconstruction. DLP: 65.62 mGy.cm DIvol: Mean CTDIvol: 1.30 (mGy) COMPARISON: 11/17/2018 Diagnostic quality: Satisfactory Lungs: Moderate pulmonary hyperexpansion. Bilateral, multi lobar groundglass opacifications are ident ified. The largest groundglass opacification measures 1.7 cm RIGHT lower lobe. There are a few additi onal small groundglass type nodules measuring 5 mm. No solid mass. No solid nodule or endobronchial m ass. Heart: Normal size heart with no pericardial effusion.. Other findings: Heavy dense calcification in the [place] coronary arteries. All 3 main coronary arteri es with heavy calcification. Moderate atherosclerosis thoracic aorta. Normal size pulmonary artery. N o mediastinal or hilar adenopathy. Small hiatal hernia. No adrenal mass. No destructive bone lesions. IMPRESSION: CT/CT lung screening 68208 LUNG-RADS: 2S-Benign Appearance or Behavior with Significant Findings FOLLOW UP: 12 Month: Continue annual screening with LDCT OTHER FINDINGS (S MODIFIER): Very dense extensive coronary artery calcification s. Consider evaluation by cardiology.
== END 2023-07-19 09:39 | disposition home or self-care (01) ==
LOC: RAD 09:38
PROVIDERS: PCP Nurse Practitioner; Visit Provider Nurse Practitioner
DX: Z12.2 Encounter for screening for malignant neoplasm of respiratory organs (principal); Z87.891 Personal history of nicotine dependence; R91.8 Other nonspecific abnormal finding of lung field; I25.10 Atherosclerotic heart disease of native coronary artery without angina pectoris
CPT/HCPCS: 71271

== ENCOUNTER 2023-07-24 02:40 | Emergency (ER) | payer MEDICARE, SELFPAY ==
[2023-07-24 02:42] VITALS: BP 111/70; PULSE 99; RESP 17; TEMP 36.8; O2SAT 97; BMI 24.5
--- NOTE | 2023-07-24 02:50 | ECG_ITS ---
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 Measurements Intervals [place] Rate: 99 P: 60 VA: 142 QRS: 22 QRSD: 85 T: 67 QT: 351 QTc: 452 Interpretive Statements SINUS RHYTHM MINIMAL ST DEPRESSION [0.025+ mV ST DEPRESSION] Compared to ECG 07/12/2023 13:12:12 ST (T wave) deviation now present T-wave abnormality no longer present Electronically Signed On 07-24-2023 23:54:35 CDT by Nahid Ludwig M.D. [id number]
--- NOTE | 2023-07-24 02:50 | XRR_ITS ---
PROCEDURE INFORMATION: Exam: XR Chest Exam date and time: 07/24/2023 2:52 AM Age: 68 years old Clinical indication: Chest pressure; Prior surgery; Surgery date: 6+ months; Surgery type: Coronary stents; Patient HX: C/O chest pain; Additional info: Cp TECHNIQUE: Imaging protocol: Radiologic exam of the chest. Views: 1 view. COMPARISON: CT lung screening [id number] 07/19/2023 10:17 AM FINDINGS: Lungs: Unremarkable. No consolidation. Pleural spaces: Unremarkable. No pleural effusion. No pneumothorax. Heart/Mediastinum: Unremarkable. No cardiomegaly. Bones/joints: Unremarkable. XR/XR chest 1V portable [id number] IMPRESSION: No acute findings.
[2023-07-24 02:59] LABS: Basophils % 0.2 %; Eosinophils # 0.2 10^3/uL (0.0-0.8); Eosinophils % 1.3 %; Hematocrit 39.8 % (37-53); Lymphocytes # 2.1 10^3/uL (0.8-4.8); Lymphocytes % 17.7 %; Mean Corpuscular HGB Conc 34.2 g/dL (30-55); Mean Corpuscular Hemoglobin 29.8 pg (27-33); Mean Corpuscular Volume 87.1 fl (82-101); Mean Platelet Volume 9.6 fL (7.4-10.4); Monocytes # 0.7 10^3/uL (0.2-0.9); Monocytes % 5.5 %; Neutrophils # 9.01 10^3/uL (1.8-7.7); Neutrophils % 74.8 %; Nucleated Red Blood Cells % 0 %; Platelet Count 217 10^3/cmm (157-399); Red Blood Count 4.57 10^6/uL (3.85-5.65); White Blood Count 12.04 10^3/uL (3.29-11.43)
[2023-07-24] MEDS: ondansetron 2 mg/ML SDV 2 mL 4 MG IVP (03:04)
[2023-07-24] MEDS: morphine 4 mg/mL SDV 1 mL IVP (03:05)
[2023-07-24] MEDS: nitroglycerin 1 gm/inch oint Pkt 0.5 INCH TOPICAL (03:08)
--- NOTE | 2023-07-24 03:08 | ED_ITS ---
HPI - Chest Pain 2 General: Chief Complaint: Chest Pain Stated Complaint: CP Time Seen by Provider: 07/24/23 02:45 History of Present Illness: 68-year-old male with a history of CAD a nd stents to his LAD a couple of years ago at this facility. He presents with chest pain that woke him from sleep this morning. He complains of shortness of breath. Pain is centralized. Nonradicular. Some cough. No sputum production or fever. No lower extremity swelling. He still smokes. He has been taking his Plavix. Associated symptoms: Reports dyspnea; Deny abdominal pain, fever(s) or nausea Review of Systems 2 Const: Denies: fever(s) ENMT: Denies: throat pain Card: Reports: chest pain Resp: Reports: dyspnea and non-productive cough GI: Denies: abdominal pain or nausea PFSH ED 2 PFSH: Medical History History of compression fracture of spine Personal history of nicotine dependence Inability to maintain erection Anxiety, generalized Nicotine dependence Dyslipidemia Encounter for long-term use of opiate analgesic Allergic rhinitis due to pollen Essential (primary) hypertension Chronic obstructive pulmonary disease, unspecified Chronic kidney disease, stage 2 (mild) 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 contract 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 Surgical History H/O eye surgery Stented coronary artery Status post for stent most recent 2018 Family History Other Cancer Diabetes Social History Smoking and tobacco/nicotine status: current every day tobacco/nicotine user cigarettes Packs smoked per day: 0.5 Years cigarettes smoked: 42 Quit status (tobacco/nicotine): considering quitting Second hand smoke exposure: Yes Alcohol intake: never Substance/Drug Use: never Adopted: No Caregiver/support person: No Lives independently: Yes Household members: significant other and children Housing: House Marital status: / service: No Current occupational status: disabled Do you think of yourself as: Straight/Heterosexual Current gender identity: Male Physical Exam 2 Const: GENERAL APPEARANCE: cooperative and ill appearing (Mildly); not frail appearing HENMT: COMMON NORMALS: normocephalic, atraumatic and Normal external nose present HEAD & SCALP: normocephalic and atraumatic FACE & SINUS: normal facial exam and face symmetric NOSE: Normal external nose present Eye: COMMON NORMALS: Equal, round and reactive pupils present and EOMs intact bilaterally PUPIL: Yes Equal, round and reactive pupils present Neck/C-Spine: GENERAL: Yes trachea midline Chest: CHEST: Yes Symmetrical chest wall rise Resp: COMMON NORMALS: normal respiratory effort, No retractions, No use of accessory muscles and clear to auscultation bilaterally AUSCULTATION: clear to auscultation bilaterally Cardio: COMMON NORMALS: regular rate and regular rhythm RATE: regular rate RHYTHM: regular rhythm GI: COMMON NORMALS: Normal to inspection, nondistended, normoactive bowel sounds present Extremity: COMMON NORMALS: no pedal edema Neuro: JAIME COMA SCALE: document GCS findings [place] coma scale eye opening: Spontaneous Jaime coma scale verbal response: Orientated Jaime coma scale motor response: Obey commands Jaime coma scale total score: 15 S ENSORY EXAM: Yes extremities (intact) Psych: COMMON NORMALS: speech normal SPEECH: Yes normal speech Skin: COMMON NORMALS: no rashes or lesions noted GENERAL SKIN EXAM: no rashes or lesions noted Course 2 Vital Signs: Vital signs: Vital Signs Temperature 98.2 F 07/24/23 02:42 Pulse Rate 85 07/24/23 05:10 Respiratory Rate 19 H 07/24/23 05:10 Blood Pressure 119/73 07/24/23 05:10 Pulse Oximetry 94 07/24/23 05:10 Oxygen Delivery Me thod Room Air 07/24/23 02:42 MDM - Chest Pain Medical Decision Making No pain after morphine and Nitropaste here. Blood pressure is 111/69, heart rate 80. Chest x-ray is clear. White blood cell count is 12. The patient's been on steroids. Hemoglobin is 13.6. Troponin at baseline is 12, with a delta of -2 2 hours. EKG is nonacute. He will be discharged home to follow-up as an outpatient. Lab Data 07/24/23 02:53 07/24/23 02:53 Radiology Impressions Chest X-Ray 07/24/23 02:50 IMPRESSION: No acute findings. Laboratory Results WBC 12.04 10^3/uL (3.29-11.43) H 07/24/23 02:53 RBC 4.57 10^6/uL (3.85-5.65) 07/24/23 02:53 Hgb 13.60 g/dL (11.27-16.99) 07/24/23 02:53 Hct 39.8 % (37-53) 07/24/23 02:53 MCV 87.1 fl (82-101) 07/24/23 02:53 MCH 29.8 pg (27-33) 07/24/23 02:53 MCHC 34.2 g/dL (30-55) 07/24/23 02:53 RDW 13.0 % (12.1-15.1) 07/24/23 02:53 Plt Count 217 10^3/cmm (157-399) 07/24/23 02:53 MPV 9.6 fL (7.4-10.4) 07/24/23 02:53 Neut % (Auto) 74.8 % 07/24/23 02:53 Lymph % (Auto) 17.7 % 07/24/23 02:53 [place] % (Auto) 5.5 % 07/24/23 02:53 Eos % (Auto) 1.3 % 07/24/23 02:53 Baso % (Auto) 0.2 % 07/24/23 02:53 Neut # (Auto) 9.01 10^3/uL (1.8-7.7) H 07/24/23 02:53 Lymph # (Auto) 2.1 10^3/uL (0.8-4.8) 07/24/23 02:53 [place] # (Auto) 0.7 10^3/uL (0.2-0.9) 07/24/23 02:53 Eos # (Auto) 0.2 10^3/uL (0.0-0.8) 07/24/23 02:53 Baso # (Auto) 0.0 10^3/uL (0.0-0.1) 07/24/23 02:53 Nucleated RBC % (auto) 0 % 07/24/23 02:53 Nucleated RBCs # 0.0 /100WBC 07/24/23 02:53 PT 13.80 SECONDS (12.1-14.9) 07/24/23 02:53 INR 1.02 (0.8-1.2) 07/24/23 02:53 APTT 28.3 SECONDS (23.9-36.7) 07/24/23 02:53 Sodium 132 mmol/L (136-145) L 07/24/23 02:53 Potassium 4.3 mmol/L (3.5-5.1) 07/24/23 02:53 Chloride 99 mmol/L (98-107) 07/24/23 02:53 Carbon Dioxide 22 mmol/L (22-29) 07/24/23 02:53 Anion Gap 15.3 (5-19) 07/24/23 02:53 BUN 12 mg/dL (8-23) 07/24/23 02:53 Creatinine 1.1 mg/dL (0.7-1.2) 07/24/23 02:53 GFR Calculation 66.4 mL/min (90-130) L 07/24/23 02:53 Glucose 124 mg/dL (65-115) H 07/24/23 02:53 Calculated Osmolality 275 mOsm/kg (285-295) L 07/24/23 02:53 Calcium 8.0 mg/dL (8.5-10.5) L 07/24/23 02:53 Total Bilirubin 0.4 mg/dL (0.15-1.2) 07/24/23 02:53 AST 28 U/L (0-40) 07/24/23 02:53 ALT 39 U/L (0-41) 07/24/23 02:53 Alkaline Phosphatase 126 U/L (40-130) 07/24/23 02:53 Troponin T Baseline 12 ng/L (0-15) 07/24/23 02:53 Troponin T 120 Minute 9.98 ng/L (0-15) 07/24/23 04:45 Delta Troponin T -2.02 ABS# (0-10) L 07/24/23 04:45 NT-Pro-B Natriuret Pep 67 pg/mL (0-125) 07/24/23 02:53 Total Protein 5.9 g/dL (6.6-8.7) L 07/24/23 02:53 Albumin 3.6 g/dL (3.5-5.2) 07/24/23 02:53 Globulin 2.3 g/dL (1.3-4.6) 07/24/23 02:53 Lipase 45 U/L (13-60) 07/24/23 02:53 All radiology interpretation(s) finalized by discharge Discharge Plan Discharge Patient Disposition: Home Clinical Impression: Chest pain Condition: Stable Prescriptions: No Action baclofen 20 mg tablet 10 mg PO BID PRN (Reason: muscle spasm) 90 Days Qty: 90 1RF promethazine-DM 6.25-15 mg/5 mL syrup 5 ml PO Q6H PRN (Reason: cough) Qty: 120 0RF albuterol sulfate [ProAir HFA] 90 mcg/actuation HFA aerosol inhaler 2 puff INHALATION QID PRN (Reason: shortness of breath or wheezing) 30 Days Qty: 6.7 5RF atorvastatin 40 mg tablet 40 mg PO DAILY Qty: 30 5RF bupropion HCl 150 mg tablet extended release 24 hr 150 mg PO QAM Qty: 30 5RF cetirizine [Zyrtec] 10 mg tablet 10 mg PO DAILY Qty: 30 5RF chlorhexidine gluconate 0.12 % mouthwash 15 ml BUCCAL BID Qty: 473 5RF Repatha SureClick 140 mg/mL pen injector 140 mg SUBCUT .every 14 days Qty: 2 5RF gabapentin 600 mg tablet 600 mg PO BID Qty: 60 5RF icosapent ethyl [Vascepa] 1 gram capsule 2 g PO BID Qty: 120 5RF magnesium oxide 500 mg magnesium tablet 500 mg PO BID Qty: 60 5RF epinephrine [EpiPen 2-Juan] 0.3 mg/0.3 mL auto-injector 0.3 mg IM ONCE PRN (Reason: anaphylaxis sting) Qty: 2 1RF Rx Instructions: as a single dose nitroglycerin [Nitrostat] 0.4 mg tablet, sublingual 0.4 mg SUBLINGUAL Q5M PRN (Reason: chest pain) Qty: 25 0RF Rx Instructions: DO NOT take with Viagra clopidogrel [Plavix] 75 mg tablet 75 mg PO QDAY Qty: 30 2RF hydrocodone-acetaminophen 10-325 mg tablet 1 tab PO TID PRN (Reason: pain) 30 Days Qty: 90 0RF Mucinex 1,200 mg tablet extended release 12hr 1,200 mg PO BID 14 Days Qty: 28 0RF aspirin 81 mg Tablet,Delayed Release (Dr/Ec) 81 mg PO DAILY Hold Instructions: Resume on 07/05/23. Symbicort 160-4.5 mcg/actuation HFA aerosol inhaler 2 puff INHALATION BID Celexa 20 mg tablet 20 mg PO BEDTIME trazodone 100 mg tablet 100 mg PO BEDTIME Discharge Orders: Discharge ED (Routine); Ordered 07/24/23 Ordered By: Chema Briseno Referrals: Anjali Cunha, INSTITUTIONAL NUTRITION CONSULTANT-C [Primary Care Provider] - Patient Instructions: Chest Pain (ED), Opioid Safety, Pain Management Activity Restrictions/Additional Instructions: The cause of your chest discomfort this morning was unclear. Your EKG and enzyme levels were not remarkable, and did not reveal a cause of the pain in terms of your heart. Return for repeated episodes of chest pain, worsening shortness of breath, other new signs or symptoms. Coding Level of Care Code ED Quill Layer for Ju Harper
[2023-07-24 03:18] LABS: INR 1.02 (0.8-1.2)
[2023-07-24 03:19] LABS: Partial Thromboplastin Time 28.3 SECONDS (23.9-36.7)
[2023-07-24 03:26] LABS: Troponin(5th) Baseline 12 ng/L (0-15)
[2023-07-24 03:32] VITALS: BP 119/74; PULSE 89; RESP 18; O2SAT 94
[2023-07-24 03:33] LABS: Alanine Aminotransferase 39 U/L (0-41); Albumin Level 3.6 g/dL (3.5-5.2); Alkaline Phosphatase 126 U/L (40-130); Anion Gap 15.3 (5-19); Aspartate Amino Transferase 28 U/L (0-40); Blood Urea Nitrogen 12 mg/dL (8-23); Carbon Dioxide 22 mmol/L (22-29); Chloride 99 mmol/L (98-107); Creatinine Clr Calc Pharmacy 65.0281; Globulin 2.3 g/dL (1.3-4.6); Glomerular Filtration Rate 66.4 mL/min (90-130); Glucose 124 mg/dL (65-115); Lipase 45 U/L (13-60); NT Pro B Type Natriuretic Pept 67 pg/mL (0-125); Osmolality Calculated 275 mOsm/kg (285-295); Potassium 4.3 mmol/L (3.5-5.1); Sodium 132 mmol/L (136-145); Total Bilirubin 0.4 mg/dL (0.15-1.2); Total Protein 5.9 g/dL (6.6-8.7)
[2023-07-24 04:11] VITALS: BP 122/81; PULSE 87; RESP 16; O2SAT 95
--- NOTE | 2023-07-24 04:50 | ECG_ITS ---
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 Measurements Intervals [place] Rate: 83 P: 56 UT: 134 QRS: 11 QRSD: 95 T: 62 QT: 390 QTc: 460 Interpretive Statements SINUS RHYTHM MINIMAL ST DEPRESSION [0.025+ mV ST DEPRESSION] Compared to ECG 07/24/2023 02:46:54 No significant changes Electronically Signed On 07-24-2023 23:58:20 CDT by Nahid Ludwig M.D. [email or web address]
[2023-07-24 05:09] LABS: Troponin 5 2HR 9.98 ng/L (0-15); Troponin 5 2HR Delta -2.02 ABS# (0-10)
[2023-07-24 05:10] VITALS: BP 119/73; PULSE 85; RESP 19; O2SAT 94
== END 2023-07-24 05:50 | disposition home or self-care (01) ==
PROVIDERS: Emergency Provider Emergency Medicine; PCP Nurse Practitioner
DX: R07.9 Chest pain, unspecified (principal); Z79.02 Long term (current) use of antithrombotics/antiplatelets; Z79.82 Long term (current) use of aspirin; F17.210 Nicotine dependence, cigarettes, uncomplicated; E78.5 Hyperlipidemia, unspecified; J44.9 Chronic obstructive pulmonary disease, unspecified; I12.9 Hypertensive chronic kidney disease with stage 1 through stage 4 chronic kidney disease, or unspecified chronic kidney disease; N18.2 Chronic kidney disease, stage 2 (mild); I25.10 Atherosclerotic heart disease of native coronary artery without angina pectoris
CPT/HCPCS: 71045; 80053; 83690; 83880; 84484; 85025; 85610; 85730; 93005; 96374; 96375; 99285; J2270; J2405

== ENCOUNTER → 2023-12-27 09:35 | Outpatient (BNVA) | payer MEDICARE, SELFPAY | PROVIDERS: PCP Nurse Practitioner; Visit Provider Family Medicine | DX: E78.5 Hyperlipidemia, unspecified (principal); F41.1 Generalized anxiety disorder; I25.10 Atherosclerotic heart disease of native coronary artery without angina pectoris; G89.29 Other chronic pain | CPT/HCPCS: 80053; 80061; 85025 ==

== ENCOUNTER 2024-02-08 15:58 | Emergency (ER) | payer MEDICARE, SELFPAY ==
[2024-02-08 16:09] VITALS: BP 153/88; PULSE 71; RESP 16; TEMP 36.7; O2SAT 100; BMI 27.3
--- NOTE | 2024-02-08 16:09 | XR_ITS ---
WS: [id number] XR knee LT 3V* [id number] REASON FOR EXAM: trauma FINDINGS: No fracture or or other focal bone abnormality. Joint spaces of the left knee are intact and well preserved. No radiopaque soft tissue foreign body identified. XR/XR knee LT 3V* [id number] IMPRESSION: No acute abnormality.
[2024-02-08 16:16] VITALS: BP 153/88; PULSE 68; O2SAT 99
--- NOTE | 2024-02-08 16:18 | ED_ITS ---
HPI - Wound/Laceration General: Chief Complaint: Wound/Laceration Stated Complaint: Lac, Chainsaw Time Seen by Provider: 02/08/24 16:03 History of Present Illness: 68-year-old male presents with a lacerat ion to his left knee. Patient was working with a chainsaw when he bumped into the chainsaw with his left leg. He reports that he suffered a laceration over the left leg to the proximal aspect of the knee. It went through the skin but not through the fascial layer. He is not exactly sure when his last tetanus was. Patient was brought in via EMS and received a total of 1 mg of Dilaudid. Associated symptoms: Denies chills or fever(s) Related Data Home Medications Medication Instructions Recorded Confirmed aspirin 81 mg tablet,delayed 81 mg PO DAILY 10/13/19 07/21/23 release budesonide-formoterol HFA 160 2 puff inhalation BID 07/12/23 07/21/23 mcg-4.5 mcg/actuation aerosol inhaler (Symbicort) citalopram 20 mg tablet (Celexa) 20 mg PO BEDTIME 07/12/23 08/29/23 trazodone 100 mg tablet 100 mg PO BEDTIME 07/12/23 07/21/23 Previous Rx's Medication Instructions Recorded epinephrine 0.3 mg/0.3 mL 0.3 mg (0.3 mL) IM ONCE PRN 05/18/21 injection, auto-injector (EpiPen anaphylaxis sting #2 ea 2-Juan) baclofen 20 mg tablet 10 mg (1/2 x 20 mg) PO BID PRN 03/02/22 muscle spasm 90 days #90 tabs albuterol sulfate 90 mcg/actuation 2 puff inhalation QID PRN 06/16/23 aerosol inhaler (ProAir HFA) shortness of breath or wheezing 30 days #6.7 grams atorvastatin 40 mg tablet 40 mg PO DAILY #30 tabs 06/16/23 bupropion HCl 150 mg 24 hr tablet, 150 mg PO QAM #30 tabs 06/16/23 extended release cetirizine 10 mg tablet (Zyrtec) 10 mg PO DAILY #30 tabs 06/16/23 chlorhexidine gluconate 0.12 % 15 ml buccal BID #473 mL 06/16/23 mouthwash evolocumab 140 mg/mL subcutaneous 140 mg SUBCUT .every 14 days #2 mL 06/16/23 pen injector (Repatha SureClick) gabapentin 600 mg tablet 600 mg PO BID pain #60 tabs 06/16/23 icosapent ethyl 1 gram capsule 2 g (2 x 1 gram) PO BID #120 caps 06/16/23 (Vascepa) magnesium oxide 500 mg PO BID #60 tabs 06/16/23 guaifenesin 1,200 mg tablet, 1,200 mg PO BID 14 days #28 tabs 07/15/23 extended release 12 hr (Mucinex) promethazine-DM 6.25 mg-15 mg/5 mL 5 ml PO Q6H PRN cough #120 mL 07/21/23 oral syrup nitroglycerin 0.4 mg sublingual 0.4 mg sublingual Q5M PRN chest 12/27/23 tablet (Nitrostat) pain #25 tabs clopidogrel 75 mg tablet (Plavix) 75 mg PO QDAY #90 tabs 01/24/24 hydrocodone 10 mg-acetaminophen 1 tab PO QID PRN pain 30 days #120 01/24/24 325 mg tablet tabs amoxicillin 500 mg-potassium 1 tab PO Q12H #10 tabs 02/08/24 clavulanate 125 mg tablet (Augmentin) Allergies Allergy/AdvReac Type Severity Reaction Status Date / Time venom-wasp Allergy swelling Verified 12/27/23 08:53 Review of Systems Const: Denies: fever(s) or chills Card: Denies: chest pain Resp: Denies: dyspnea Musc: Reports: other (Please see HPI) PFSH ED PFSH: Medical History History of compression fracture of spine Personal history of nicotine dependence Inability to maintain erection Anxiety, generalized Nicotine dependence Dyslipidemia Encounter for long-term use of opiate analgesic Allergic rhinitis due to pollen Essential (primary) hypertension Chronic obstructive pulmonary disease, unspecified Chronic kidney disease, stage 2 (mild) 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 contract 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 Surgical History H/O eye surgery Stented coronary artery Status post for stent most recent 2018 Family History Other Cancer Diabetes Social History Smoking and tobacco/nicotine status: current every day tobacco/nicotine user cigarettes Packs smoked per day: 0.5 Years cigarettes smoked: 42 Quit status (tobacco/nicotine): considering quitting Second hand smoke exposure: Yes Alcohol intake: never Substance/Drug Use: never Adopted: No Caregiver/support person: No Lives independently: Yes Household members: significant other and children Housing: House Marital status: / service: No Current occupational status: disabled Do you think of yourself as: Straight/Heterosexual Current gender identity: Male Physical Exam Const: GENERAL APPEARANCE: other (Uncomfortable) Resp: COMMON NORMALS: normal respiratory effort and No retractions Cardio: COMMON NORMALS: regular rate and regular rhythm RATE: regular rate RHYTHM: regular rhythm Neuro: COMMON NORMALS: no focal motor deficits Psych: COMMON NORMALS: mental status grossly normal, Normal thought process present and normal affect THOUGHT PROCESS: Normal thought process present Skin: NARRATIVE SKIN EXAM: About a 8 cm laceration full thickness skin left proximal knee Procedures Laceration Laceration 1: Site: lower extremity (Left knee) Size (cm): 6 Description: irregular and other (Irregular with 3 approximate 5 to 6 cm lacerations meeting) Depth: simple, single layer Local Anesthetic: lidocaine 2% and with epi Amount of anesthesia used (mL): 10 Pre-repair: wound explored and irrigated extensively Size (cm): 3-0 Number of sutures: 14 Technique: simple, interrupted Course Vital Signs: Vital signs: Vital Signs Temperature 98.1 F 02/08/24 16:09 Pulse Rate 68 02/08/24 16:16 Respiratory Rate 16 02/08/24 16:09 Blood Pressure 153/88 02/08/24 16:16 Pulse Oximetry 99 02/08/24 16:16 Oxygen Delivery Me thod Room Air 02/08/24 16:16 MDM - Wound/Laceration Medical Decision Making Patient with a complex laceration that was closed with 14 sutures. There was close approximation and patient handled with no immediate difficulty. X-ray shows no acute findings. Patient will be started on Augmentin due to the nature of the wound. He is stable and discharged home Lab Data Radiology Impressions Knee X-Ray 02/08/24 16:09 IMPRESSION: No acute abnormality. All radiology interpretation(s) finalized by discharge Discharge Plan Discharge Patient Disposition: Home Clinical Impression: Laceration Condition: Stable Prescriptions: New amoxicillin-pot clavulanate [Augmentin] 500-125 mg tablet 1 tab PO Q12H Qty: 10 0RF No Action baclofen 20 mg tablet 10 mg PO BID PRN (Reason: muscle spasm) 90 Days Qty: 90 1RF promethazine-DM 6.25-15 mg/5 mL syrup 5 ml PO Q6H PRN (Reason: cough) Qty: 120 0RF nitroglycerin [Nitrostat] 0.4 mg tablet, sublingual 0.4 mg SUBLINGUAL Q5M PRN (Reason: chest pain) Qty: 25 0RF Rx Instructions: DO NOT take with Viagra albuterol sulfate [ProAir HFA] 90 mcg/actuation HFA aerosol inhaler 2 puff INHALATION QID PRN (Reason: shortness of breath or wheezing) 30 Days Qty: 6.7 5RF atorvastatin 40 mg tablet 40 mg PO DAILY Qty: 30 5RF bupropion HCl 150 mg tablet extended release 24 hr 150 mg PO QAM Qty: 30 5RF cetirizine [Zyrtec] 10 mg tablet 10 mg PO DAILY Qty: 30 5RF chlorhexidine gluconate 0.12 % mouthwash 15 ml BUCCAL BID Qty: 473 5RF Repatha SureClick 140 mg/mL pen injector 140 mg SUBCUT .every 14 days Qty: 2 5RF gabapentin 600 mg tablet 600 mg PO BID Qty: 60 5RF icosapent ethyl [Vascepa] 1 gram capsule 2 g PO BID Qty: 120 5RF magnesium oxide 500 mg magnesium tablet 500 mg PO BID Qty: 60 5RF epinephrine [EpiPen 2-Juan] 0.3 mg/0.3 mL auto-injector 0.3 mg IM ONCE PRN (Reason: anaphylaxis sting) Qty: 2 1RF Rx Instructions: as a single dose Mucinex 1,200 mg tablet extended release 12hr 1,200 mg PO BID 14 Days Qty: 28 0RF clopidogrel [Plavix] 75 mg tablet 75 mg PO QDAY Qty: 90 3RF hydrocodone-acetaminophen 10-325 mg tablet 1 tab PO QID PRN (Reason: pain) 30 Days Qty: 120 0RF aspirin 81 mg Tablet,Delayed Release (Dr/Ec) 81 mg PO DAILY Hold Instructions: Resume on 07/05/23. Symbicort 160-4.5 mcg/actuation HFA aerosol inhaler 2 puff INHALATION BID Celexa 20 mg tablet 20 mg PO BEDTIME trazodone 100 mg tablet 100 mg PO BEDTIME Discharge Orders: Discharge ED (Routine); Ordered 02/08/24 Ordered By: Jones Yates Referrals: Anjali Cunha, ANIMAL CRUELTY INVESTIGATION SUPERVISOR-C [Primary Care Provider] - Discharge Diet: Usual diet Discharge Activity: Increase activity as tolerated Patient Instructions: Laceration (ED), Opioid Safety, Pain Management Activity Restrictions/Additional Instructions: Keep wound clean with warm soapy water. Please keep a sterile dressing on for the next 4 to 5 days. Please keep leg extended is much as possible for the next 48 hours. Do not submerge in water for 48 hours. Please take antibiotics to help prevent any infection. Please have sutures out in approximately 10 days. 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
[2024-02-08] MEDS: tetanus-dipt-pertussis 0.5 mL SDV IM (16:53)
[2024-02-08] MEDS: lidocaine-epi 2% PF 1:200,000 10 mL SDV INJECTION (16:55)
[2024-02-08 18:05] VITALS: BP 135/75; PULSE 70; O2SAT 98
== END 2024-02-08 17:32 | disposition home or self-care (01) ==
PROVIDERS: Emergency Provider Student in an Organized Health Care Education/Training Program; PCP Nurse Practitioner
DX: S81.012A Laceration without foreign body, left knee, initial encounter (principal); Z79.82 Long term (current) use of aspirin; Z79.02 Long term (current) use of antithrombotics/antiplatelets; F17.210 Nicotine dependence, cigarettes, uncomplicated; E78.5 Hyperlipidemia, unspecified; I12.9 Hypertensive chronic kidney disease with stage 1 through stage 4 chronic kidney disease, or unspecified chronic kidney disease; N18.2 Chronic kidney disease, stage 2 (mild); J44.9 Chronic obstructive pulmonary disease, unspecified; I25.10 Atherosclerotic heart disease of native coronary artery without angina pectoris; W29.3XXA Contact with powered garden and outdoor hand tools and machinery, initial encounter; Z23 Encounter for immunization
CPT/HCPCS: 12002; 73562; 90471; 90715; 99283

== ENCOUNTER 2024-04-27 13:35 | Emergency (ER) | payer MEDICARE, SELFPAY ==
--- NOTE | 2024-04-27 13:41 | XRR_ITS ---
PROCEDURE INFORMATION: Exam: XR Chest Exam date and time: 04/27/2024 2:18 PM Age: 68 years old Clinical indication: Angina pectoris; Patient HX: Sharp chest pain in the left chest about 1100 this am. ; Additional info: Cp TECHNIQUE: Imaging protocol: Radiologic exam of the chest. Views: 1 view. COMPARISON: CR XR chest 1V portable [id number] 07/24/2023 2:52 AM FINDINGS: Lungs: Unremarkable. No consolidation. Pleural spaces: Unremarkable. No pleural effusion. No pneumothorax. Heart/Mediastinum: Heart size is normal. There is calcified plaque involving the aorta. Bones/joints: Unremarkable. XR/XR chest 1V portable [id number] IMPRESSION: 1. No acute cardiopulmonary findings.
--- NOTE | 2024-04-27 13:42 | ECG_ITS ---
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 Measurements Intervals [place] Rate: 101 P: 58 CT: 146 QRS: 33 QRSD: 84 T: 55 QT: 319 QTc: 414 Interpretive Statements SINUS TACHYCARDIA NONSPECIFIC ST & T-WAVE ABNORMALITY Compared to ECG 07/24/2023 04:52:14 T-wave abnormality now present Sinus rhythm no longer present ST (T wave) deviation no longer present Electronically Signed On 04-27-2024 18:28:31 ESCAPE WHEEL TOOTH CUTTER by Nahid Ludwig M.D. [id number]
--- NOTE | 2024-04-27 13:45 | CT_ITS ---
WS: [id number] CT HEAD NONCONTRAST HISTORY: horvath TECHNIQUE: Contiguous axial imaging performed through the brain. Bone and soft tissue windows. Sagitt al and coronal reformats reviewed. All CT scans at [facility] use at least one of these dose optimization techniques: automated exposure control; mA and/or kV adjustment per patient size (includ es targeted exams where dose is matched to clinical indication); or iterative reconstruction. DLP: 1203.24 mGy.cm COMPARISON: 08/27/2019 No acute intracranial hemorrhage, midline shift or mass effect. Mild atrophy and mild small vessel ischemic disease. No acute infarct. No mass effect. Ventricles: Normal size with no hydrocephalus. No inferior displacement of the cerebellar tonsils. Paranasal sinuses: As visualized are clear. Mastoid air cells: Well pneumatized. Calvarium and scalp: Skull is intact with no soft tissue edema or swelling. CT/CT head wo con* [id number] IMPRESSION: 1. No acute intracranial hemorrhage or edema. 2. Mild cerebral atrophy and mild small vessel disease.
--- NOTE | 2024-04-27 13:50 | ED_ITS ---
HPI - Chest Pain 2 General: Chief Complaint: Chest Pain Stated Complaint: chest pain Time Seen by Provider: 04/27/24 13:37 Source: patient and EMS Mode of arrival: EMS Limitations: no limitations History of Present Illness: Patient presents for chest pain along with headache he states that the headache began gradually earlier this morning has had a history of migraines he states that headaches worsen states is currently an 8 out of 10 he denied it to me that it was the worst take with light states it feels like his typical headaches just a little worse than average he denies any fever denies any neck pain or stiffness states he has had left-sided chest pain throughout the day as well as been sharp. Denies any vomiting or diarrhea Related Data Home Medications Medication Instructions Recorded Confirmed aspirin 81 mg tablet,delayed 81 mg PO DAILY 10/13/19 04/27/24 release albuterol sulfate 90 mcg/actuation 2 puff inhalation QID PRN 04/27/24 04/27/24 aerosol inhaler Shortness Of Breath Or Wheezing mupirocin 2 % topical ointment 1 applic topical BID PRN skin 04/27/24 04/27/24 infection Previous Rx's Medication Instructions Recorded atorvastatin 40 mg tablet 40 mg PO DAILY #90 tabs 03/06/24 baclofen 20 mg tablet 10 mg (1/2 x 20 mg) PO BID PRN 03/06/24 muscle spasm 90 days #90 tabs bupropion HCl 150 mg 24 hr tablet, 150 mg PO QAM #180 tabs 03/06/24 extended release cetirizine 10 mg tablet (Zyrtec) 10 mg PO DAILY #90 tabs 03/06/24 chlorhexidine gluconate 0.12 % 15 ml buccal BID #473 mL 03/06/24 mouthwash citalopram 20 mg tablet (Celexa) 20 mg PO BEDTIME #90 tabs 03/06/24 clopidogrel 75 mg tablet (Plavix) 75 mg PO QDAY #90 tabs 03/06/24 epinephrine 0.3 mg/0.3 mL 0.3 mg (0.3 mL) IM ONCE PRN 03/06/24 injection, auto-injector (EpiPen anaphylaxis sting #2 ea 2-Juan) evolocumab 140 mg/mL subcutaneous 140 mg SUBCUT .every 14 days #2 mL 03/06/24 pen injector (Repatha SureClick) gabapentin 600 mg tablet 600 mg PO BID pain #180 tabs 03/06/24 hydrocodone 10 mg-acetaminophen 1 tab PO QID PRN pain 30 days #120 03/06/24 325 mg tablet tabs icosapent ethyl 1 gram capsule 2 g (2 x 1 gram) PO BID #120 caps 03/06/24 (Vascepa) nitroglycerin 0.4 mg sublingual 0.4 mg sublingual Q5M PRN chest 03/06/24 tablet (Nitrostat) pain #25 tabs trazodone 100 mg tablet 100 mg PO BEDTIME #90 tabs 03/06/24 Allergies Allergy/AdvReac Type Severity Reaction Status Date / Time venom-wasp Allergy swelling Verified 02/27/24 08:41 PFSH ED 2 PFSH: Medical History History of compression fracture of spine Personal history of nicotine dependence Inability to maintain erection Anxiety, generalized Nicotine dependence Dyslipidemia Encounter for long-term use of opiate analgesic Allergic rhinitis due to pollen Essential (primary) hypertension Chronic obstructive pulmonary disease, unspecified Chronic kidney disease, stage 2 (mild) Atherosclerotic heart disease of [place] coronary artery without angina pectoris Opioid contract 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 Surgical History H/O eye surgery Stented coronary artery Status post for stent most recent 2018 Family History Other Cancer Diabetes Social History Smoking and tobacco/nicotine status: current every day tobacco/nicotine user cigarettes Packs smoked per day: 0.5 Years cigarettes smoked: 42 Quit status (tobacco/nicotine): considering quitting Second hand smoke exposure: Yes Alcohol intake: never Substance/Drug Use: never Adopted: No Caregiver/support person: No Lives independently: Yes Household members: significant other and children Housing: House Marital status: / service: No Current occupational status: disabled Do you think of yourself as: Straight/Heterosexual Current gender identity: Male Course 2 Vital Signs: Vital signs: Vital Signs Pulse Rate 98 04/27/24 16:29 Respiratory Rate 14 04/27/24 16:29 Blood Pressure 113/61 04/27/24 16:29 Pulse Oximetry 94 04/27/24 16:29 Oxygen Delivery Me thod Room Air 04/27/24 16:29 MDM - Chest Pain Medical Decision Making Patient presents here with headache along with chest pains atypical in nature he has been well-appearing here headaches improved imaging and blood works normal no signs of ACS or dissection he stable for discharge follow-up with PCP return if worsening. He has no signs of subarachnoid hemorrhage he has been sleeping here and feeling much improved Medical Records I reviewed the patient's medical records. Lab Data I reviewed the patient's lab results. 04/27/24 13:56 04/27/24 13:[address] 04/27/24 13:45 IMPRESSION: 1. No acute intracranial hemorrhage or edema. 2. Mild cerebral atrophy and mild small vessel disease. Laboratory Results WBC 3.83 10^3/uL (3.29-11.43) 04/27/24 13:56 RBC 4.87 10^6/uL (3.85-5.65) 04/27/24 13:56 Hgb 14.90 g/dL (11.27-16.99) 04/27/24 13:56 Hct 43.1 % (37-53) 04/27/24 13:56 MCV 88.5 fl (82-101) 04/27/24 13:56 MCH 30.6 pg (27-33) 04/27/24 13:56 MCHC 34.6 g/dL (30-55) 04/27/24 13:56 RDW 13.6 % (12.1-15.1) 04/27/24 13:56 Plt Count 175 10^3/cmm (157-399) 04/27/24 13:56 MPV 9.8 fL (7.4-10.4) 04/27/24 13:56 Neut % (Auto) 75.3 % 04/27/24 13:56 Lymph % (Auto) 15.1 % 04/27/24 13:56 Maverick % (Auto) 8.6 % 04/27/24 13:56 Eos % (Auto) 0.5 % 04/27/24 13:56 Baso % (Auto) 0.5 % 04/27/24 13:56 Neut # (Auto) 2.88 10^3/uL (1.8-7.7) 04/27/24 13:56 Lymph # (Auto) 0.6 10^3/uL (0.8-4.8) L 04/27/24 13:56 Maverick # (Auto) 0.3 10^3/uL (0.2-0.9) 04/27/24 13:56 Eos # (Auto) 0.0 10^3/uL (0.0-0.8) 04/27/24 13:56 Baso # (Auto) 0.0 10^3/uL (0.0-0.1) 04/27/24 13:56 Nucleated RBC % (auto) 0 % 04/27/24 13:56 Nucleated RBCs # 0.0 /100WBC 04/27/24 13:56 PT 14.40 SECONDS (12.1-14.9) 04/27/24 13:56 INR 1.08 (0.8-1.2) 04/27/24 13:56 Sodium 135 mmol/L (136-145) L 04/27/24 13:56 Potassium 4.0 mmol/L (3.5-5.1) 04/27/24 13:56 Chloride 100 mmol/L (98-107) 04/27/24 13:56 Carbon Dioxide 25 mmol/L (22-29) 04/27/24 13:56 Anion Gap 14.0 (5-19) 04/27/24 13:56 BUN 15 mg/dL (8-23) 04/27/24 13:56 Creatinine 1.3 mg/dL (0.7-1.2) H 04/27/24 13:56 GFR Calculation 54.7 mL/min (90-130) L 04/27/24 13:56 Glucose 106 mg/dL (65-115) 04/27/24 13:56 Calculated Osmolality 281 mOsm/kg (285-295) L 04/27/24 13:56 Calcium 8.7 mg/dL (8.5-10.5) 04/27/24 13:56 Total Bilirubin 1.2 mg/dL (0.15-1.2) 04/27/24 13:56 AST 17 U/L (0-40) 04/27/24 13:56 ALT 27 U/L (0-41) 04/27/24 13:56 Alkaline Phosphatase 129 U/L (40-130) 04/27/24 13:56 Troponin T Baseline 12 ng/L (0-15) 04/27/24 13:56 Troponin T 120 Minute 11.61 ng/L (0-15) 04/27/24 16:06 Delta Troponin T -0.39 ABS# (0-10) L 04/27/24 16:06 Total Protein 6.2 g/dL (6.6-8.7) L 04/27/24 13:56 Albumin 4.2 g/dL (3.5-5.2) 04/27/24 13:56 Globulin 2.0 g/dL (1.3-4.6) 04/27/24 13:56 Lipase 28 U/L (13-60) 04/27/24 13:56 All radiology interpretation(s) finalized by discharge EKG Data EKG 1: I personally reviewed and interpreted this EKG as follows: EKG interpretation date: 04/27/24 EKG interpretation time: 13:42 Interpretation: sinus tach hr [address] elevation qrs 84 qtc 377 Discharge Plan Discharge Patient Disposition: Home Clinical Impression: Chest pain, Headache Condition: Stable Prescriptions: No Action baclofen 20 mg tablet 10 mg PO BID PRN (Reason: muscle spasm) 90 Days Qty: 90 1RF atorvastatin 40 mg tablet 40 mg PO DAILY Qty: 90 3RF bupropion HCl 150 mg tablet extended release 24 hr 150 mg PO QAM Qty: 180 1RF cetirizine [Zyrtec] 10 mg tablet 10 mg PO DAILY Qty: 90 3RF chlorhexidine gluconate 0.12 % mouthwash 15 ml BUCCAL BID Qty: 473 5RF citalopram [Celexa] 20 mg tablet 20 mg PO BEDTIME Qty: 90 1RF clopidogrel [Plavix] 75 mg tablet 75 mg PO QDAY Qty: 90 3RF epinephrine [EpiPen 2-Juan] 0.3 mg/0.3 mL auto-injector 0.3 mg IM ONCE PRN (Reason: anaphylaxis sting) Qty: 2 1RF Rx Instructions: as a single dose Repatha SureClick 140 mg/mL pen injector 140 mg SUBCUT .every 14 days Qty: 2 5RF gabapentin 600 mg tablet 600 mg PO BID Qty: 180 3RF hydrocodone-acetaminophen 10-325 mg tablet 1 tab PO QID PRN (Reason: pain) 30 Days Qty: 120 0RF icosapent ethyl [Vascepa] 1 gram capsule 2 g PO BID Qty: 120 5RF nitroglycerin [Nitrostat] 0.4 mg tablet, sublingual 0.4 mg SUBLINGUAL Q5M PRN (Reason: chest pain) Qty: 25 5RF Rx Instructions: DO NOT take with Viagra trazodone 100 mg tablet 100 mg PO BEDTIME Qty: 90 3RF aspirin 81 mg Tablet,Delayed Release (Dr/Ec) 81 mg PO DAILY Hold Instructions: Resume on 07/05/23. 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
[2024-04-27 14:03] VITALS: RESP 18; O2SAT 98
[2024-04-27] MEDS: morphine 4 mg/mL SDV 1 mL IVP (14:03)
[2024-04-27] MEDS: ondansetron 2 mg/ML SDV 2 mL 4 MG IVP (14:04)
[2024-04-27 14:11] LABS: Basophils % 0.5 %; Eosinophils % 0.5 %; Hematocrit 43.1 % (37-53); Lymphocytes # 0.6 10^3/uL (0.8-4.8); Lymphocytes % 15.1 %; Mean Corpuscular HGB Conc 34.6 g/dL (30-55); Mean Corpuscular Hemoglobin 30.6 pg (27-33); Mean Corpuscular Volume 88.5 fl (82-101); Mean Platelet Volume 9.8 fL (7.4-10.4); Monocytes # 0.3 10^3/uL (0.2-0.9); Monocytes % 8.6 %; Neutrophils # 2.88 10^3/uL (1.8-7.7); Neutrophils % 75.3 %; Nucleated Red Blood Cells % 0 %; Platelet Count 175 10^3/cmm (157-399); Red Blood Count 4.87 10^6/uL (3.85-5.65); Red Cell Distribution Width 13.6 % (12.1-15.1); White Blood Count 3.83 10^3/uL (3.29-11.43)
[2024-04-27 14:15] VITALS: BP 97/64; PULSE 88; RESP 16; O2SAT 94
[2024-04-27 14:31] LABS: Troponin(5th) Baseline 12 ng/L (0-15)
[2024-04-27 14:32] LABS: Alanine Aminotransferase 27 U/L (0-41); Albumin Level 4.2 g/dL (3.5-5.2); Alkaline Phosphatase 129 U/L (40-130); Aspartate Amino Transferase 17 U/L (0-40); Blood Urea Nitrogen 15 mg/dL (8-23); Calcium 8.7 mg/dL (8.5-10.5); Carbon Dioxide 25 mmol/L (22-29); Chloride 100 mmol/L (98-107); Glomerular Filtration Rate 54.7 mL/min (90-130); Glucose 106 mg/dL (65-115); Lipase 28 U/L (13-60); Osmolality Calculated 281 mOsm/kg (285-295); Sodium 135 mmol/L (136-145); Total Bilirubin 1.2 mg/dL (0.15-1.2); Total Protein 6.2 g/dL (6.6-8.7)
[2024-04-27 14:34] LABS: INR 1.08 (0.8-1.2)
[2024-04-27 15:29] VITALS: BP 95/61; PULSE 95; RESP 117; O2SAT 95
--- NOTE | 2024-04-27 16:04 | ECG_ITS ---
[facility] Test Date: 2024-04-27 Pat Name: Woodrow Shafer Department: Room: Gender: Male Manager Equipment: : 1955 Requested By: Svetlana Xie Order Number: [id number] Reading MD: Nahid Ludwig M.D. Measurements Intervals [place] Rate: 89 P: 55 PA: 143 QRS: 35 QRSD: 86 T: 50 QT: 342 QTc: 417 Interpretive Statements SINUS RHYTHM NONSPECIFIC ST & T-WAVE ABNORMALITY Compared to ECG 04/27/2024 13:42:41 Sinus tachycardia no longer present T-wave abnormality still present Electronically Signed On 04-27-2024 18:37:50 FLYER BUILDER by Nahid Ludwig M.D. [id number]
[2024-04-27 16:29] VITALS: BP 113/61; PULSE 98; RESP 14; O2SAT 94
[2024-04-27 16:52] LABS: Troponin 5 2HR 11.61 ng/L (0-15)
[2024-04-27 16:58] LABS: Troponin 5 2HR Delta -0.39 ABS# (0-10)
[2024-04-27] MEDS: ketorolac 30 mg/mL INJ 15 MG IVP (17:19)
[2024-04-27 17:32] VITALS: BP 108/66; PULSE 96; RESP 24; O2SAT 94
== END 2024-04-27 17:32 | disposition home or self-care (01) ==
PROVIDERS: Emergency Provider Emergency Medicine; PCP Family Medicine
DX: R07.9 Chest pain, unspecified (principal); R51.9 Headache, unspecified; Z79.02 Long term (current) use of antithrombotics/antiplatelets; F17.210 Nicotine dependence, cigarettes, uncomplicated; E78.5 Hyperlipidemia, unspecified; J44.9 Chronic obstructive pulmonary disease, unspecified; I12.9 Hypertensive chronic kidney disease with stage 1 through stage 4 chronic kidney disease, or unspecified chronic kidney disease; N18.2 Chronic kidney disease, stage 2 (mild)
CPT/HCPCS: 36415; 70450; 71045; 80053; 83690; 84484; 85025; 85610; 93005; 96374; 96375; 99285; J1885; J2270; J2405

== ENCOUNTER → 2024-10-26 08:26 | Outpatient (BNVA) | payer MEDICARE, SELFPAY | PROVIDERS: PCP Family Medicine; Visit Provider Family Medicine | DX: I25.10 Atherosclerotic heart disease of native coronary artery without angina pectoris (principal); Z95.5 Presence of coronary angioplasty implant and graft; G89.29 Other chronic pain | CPT/HCPCS: 80053; 80061 ==

== ENCOUNTER → 2025-01-11 09:08 | Outpatient (BNVA) | payer MEDICARE, SELFPAY | PROVIDERS: PCP Family Medicine; Visit Provider Family Medicine | DX: R56.9 Unspecified convulsions (principal); I25.10 Atherosclerotic heart disease of native coronary artery without angina pectoris; G89.29 Other chronic pain; J44.9 Chronic obstructive pulmonary disease, unspecified; E03.9 Hypothyroidism, unspecified | CPT/HCPCS: 80053; 80061; 82607; 83735; 84443; 85025 ==

== ENCOUNTER 2025-01-15 18:44 | Emergency (ER) | payer MEDICARE, SELFPAY ==
--- OUTSIDE RECORDS SUMMARY | 2024-02-25 04:00 | XMS_ITS ---
Author Organization [facility] Address [address] [place] [address] Care Team Providers Care Roll Trucker Name Role Phone Anurag Barber MD Primary Care Provider Heather callaway Migration, Provider Unavailable Unavailable REASON FOR VISIT [facility] Encounters Encounter Location Date Provider Diagnosis Migrated_Facility 0 0 02/25/2024 Provider Migration Plan Of Treatment Medication Medication Name Sig Start Date Stop Date Notes HYDROcodone-Acetaminop hen 10-325 MG Oral Tablet 1 Tablet Every 8 Hours PRN 12/31/2021 01/30/2022 *Reorder from [facility] for eRx and Interaction Alerts* Progress Notes * LYLY BALBUENA JRDOB: (69 yo M)Acc No.[id number]:02/25/2024 Patient: Bambi MARTINLYLY JR :1955 A ge:68 Y S ex:Male Address:[address], [place], [place], [address] * Refills Stop HYDROcodone-Acetaminophen 10-325 MG Oral Tablet, 1 Tablet Every 8 Hours PRN Subjective: * Chief Complaints: * E [facility] * * Date:
--- OUTSIDE RECORDS SUMMARY | 2024-02-26 04:00 | XMS_ITS ---
Author Organization [facility] Address [address] [address] Care Team Providers Care Neuro Psych Sales Specialist Name Role Phone Anurag Barber MD Primary Care Provider Heather callaway Migration, Provider Unavailable Unavailable Allergies Allergen (clinical drug ingredient) Drug/Non Drug Allergy documented on EMR Reaction Allergy Type Onset Date Status Wasp Venom Unknown Drug Allergy Active REASON FOR VISIT EMR-[facility] Medications Medication SIG (Take, Route, Frequency, Duration) Notes Start Date End Date Status atorvastatin *Reorder from [facility] for eRx and Interaction Alerts* Active Gabapentin [facility] Active Citalopram *Reorder from [facility] dispan for eRx and Interaction Alerts* Active Baclofen *[facility]* Active Cetirizine *Reorder from [facility] dispan for eRx and Interaction Alerts* Active trazodone *Reorder from [facility] dispan for eRx and Interaction Alerts* Active buPROPion HCl *[facility]* Active Plavix *[facility]* Active Social History Social History Additional Details Category Social Info Options Details Migrated Social History Migrated Social History Alcoholic beverages? - No, Currently on disability? - Yes, Drug or substance abuse? - No, Marital Status - single, Nonprescription drug use? - No, Smoking - 1 PPD, Working currently? - No Encounters Encounter Location Date Provider Diagnosis Migrated_Facility 0 0 02/26/2024 Provider Migration Plan Of Treatment No Information Progress Notes * LYLY BALBUENA JRDOB: (69 yo M)Acc No.[id number]:02/26/2024 Patient: Bambi LYLY MARTIN JR :1955 A ge:68 Y S ex:Male Address: [address] [facility], [place] [address] Subjective: * Chief Complaints: * E MR-[facility] * Surgical History: Cardiac Stent * Family History: M igrated Family History: : Cancer, c hronic pain, D iabetes, H eart disease, S troke. * Social History: M igrated Social History: M igrated Social History: Alcoholic beverages? - No, C urrently on disability? - Yes, D rug or substance abuse? - No, M arital Status - single, N onprescription drug use? - No, S moking - 1 PPD, W orking currently? - No. * Medications: T akingbuPROPion HCl , Notes to Pharmacist: *Pick strength-form from [facility] for eRX*Gabapentin , Notes to Pharmacist: *Pick strength-form from [facility] for eRX*atorvastatin , Notes to Pharmacist: *Reorder from [facility] for eRx and Interaction Alerts*Cetirizine , Notes to Pharmacist: *Reorder from [facility] for eRx and Interaction Alerts*Citalopram , Notes to Pharmacist: *Reorder from [facility] for eRx and Interaction Alerts*Plavix , Notes to Pharmacist: *Pick strength-form from [facility] for eRX*trazodone , Notes to Pharmacist: *Reorder from [facility] for eRx and Interaction Alerts*Baclofen , Notes to Pharmacist: *Pick strength-form from [facility] for eRX*Taking buPROPion HCl , Notes to Pharmacist: *Pick strength-form from [facility] for eRX*Taking Gabapentin , Notes to Pharmacist: *Pick strength-form from [facility] for eRX*Taking atorvastatin , Notes to Pharmacist: *Reorder from [facility] for eRx and Interaction Alerts*Taking Cetirizine , Notes to Pharmacist: *Reorder from [facility] for eRx and Interaction Alerts*Taking Citalopram , Notes to Pharmacist: *Reorder from [facility] for eRx and Interaction Alerts*Taking Plavix , Notes to Pharmacist: *Pick strength-form from [facility] for eRX*Taking trazodone , Notes to Pharmacist: *Reorder from [facility] for eRx and Interaction Alerts*Taking Baclofen , Notes to Pharmacist: *Pick strength-form from [facility] for eRX* * Allergies: W asp Venom: Allergy * * Date:
[2025-01-15] VITALS (9 sets, daily range): BP systolic 129–152; BP diastolic 72–86; PULSE 67–79; RESP 15–18; TEMP 37.3; O2SAT 95–98; BMI 25.8
--- NOTE | 2025-01-15 18:59 | CTR_ITS ---
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 Radiation optimization: All CT scans at this facility use at least one of these dose optimization techniques: automated exposure control; mA and/or kV adjustment per patient size (includes targeted exams where dose is matched to clinical indication); or iterative reconstruction. COMPARISON: CT head wo con* [id number] 04/27/2024 2:06 PM RADIATION DOSE METRICS: Total DLP (mGy-cm): 253.6 FINDINGS: Bones: No acute fracture of the cervical spine is identified. Grossly normal alignment and curvature. Extensive degenerative changes including very prominent dorsal spondylotic components such as left lateral recess at C3-C4 producing moderate central and severe left lateral recess stenosis. Also more broad-based dorsal spondylosis at C5-C6 producing moderate spinal canal stenosis and high-grade lateral recess stenosis, right greater than left. Multilevel facet arthropathy bilaterally. Lungs: Lung apices are unremarkable. Soft tissues: Unremarkable. CT/CT cervical spin wo con* [id number] IMPRESSION: No cervical spine fracture is identified.
--- NOTE | 2025-01-15 18:59 | ECG_ITS ---
[facility] Test Date: 2025-01-15 Pat Name: Woodrow Shafer Department: Room: Gender: Male Elder Counselor: : 1955 Requested By: Janes Kaplan Order Number: [id number] Sheila MD: Kaci Osborn M.D. Measurements Intervals [place] Rate: 74 P: 65 MT: 154 QRS: 36 QRSD: 84 T: 56 QT: 397 QTc: 442 Interpretive Statements SINUS RHYTHM Nonspecific ST changes Compared to ECG 04/27/2024 16:04:41 T-wave abnormality no longer present Electronically Signed On 01-16-2025 13:50:46 CDT by Kaci Osborn M.D. [email or web address] [id number]
--- NOTE | 2025-01-15 18:59 | CTR_ITS ---
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 Radiation optimization: All CT scans at this facility use at least one of these dose optimization techniques: automated exposure control; mA and/or kV adjustment per patient size (includes targeted exams where dose is matched to clinical indication); or iterative reconstruction. COMPARISON: CT head wo con* [id number] 04/27/2024 2:06 PM RADIATION DOSE METRICS: Total DLP (mGy-cm): 1298.7 FINDINGS: Brain: No acute infarction, hemorrhage, mass, or extra-axial fluid collection is identified. No midline shift. Cerebral ventricles: No hydrocephalus. Paranasal sinuses: Moderate right maxillary sinus disease. Ethmoid sinus mucosal thickening. Mastoid air cells: Mastoid air cells are grossly clear. Bones: Calvarium appears intact. Soft tissues: Unremarkable. CT/CT head wo con* [id number] IMPRESSION: No acute intracranial abnormality.
--- NOTE | 2025-01-15 18:59 | CTR_ITS ---
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 Radiation optimization: All CT scans at this facility use at least one of these dose optimization techniques: automated exposure control; mA and/or kV adjustment per patient size (includes targeted exams where dose is matched to clinical indication); or iterative reconstruction. Contrast material: OMNI 350; Contrast volume: 95 ml; Contrast route: INTRAVENOUS (IV); COMPARISON: CT lung screening [id number] 07/19/2023 10:17 AM RADIATION DOSE METRICS: Total DLP (mGy-cm): 510.3 FINDINGS: Lungs: Mild bilateral lower lung scarring/atelectasis. Pleural spaces: Unremarkable. No pneumothorax. No pleural effusion. Heart: Heart normal in size. Severe calcified coronary artery atherosclerosis. No large volume pericardial effusion. Lymph nodes: No mediastinal or hilar adenopathy. No axillary adenopathy. Vasculature: Moderate atherosclerotic calcification of the thoracic aorta. Negative for aneurysm or dissection. Bones/joints: Unremarkable. No acute fracture. Soft tissues: Unremarkable. 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 Radiation optimization: All CT scans at this facility use at least one of these dose optimization techniques: automated exposure control; mA and/or kV adjustment per patient size (includes targeted exams where dose is matched to clinical indication); or iterative reconstruction. Contrast material: OMNI 350; Contrast volume: 95 ml; Contrast route: INTRAVENOUS (IV); COMPARISON: CR XR hip LT 2-3V wo/w pel* [id number] 08/23/2020 7:57 PM RADIATION DOSE METRICS: Total DLP (mGy-cm): 848.9 FINDINGS: Liver: Normal. No mass. Gallbladder and biliary ducts: Normal. No calcified stones. No ductal dilation. Pancreas: Normal. No ductal dilation. Spleen: Normal. No splenomegaly. Adrenal glands: Normal. No mass. Kidneys and ureters: Normal. No hydronephrosis. Stomach and bowel: Unremarkable. No obstruction. No mucosal thickening. Appendix: No evidence of appendicitis. Intraperitoneal space: Unremarkable. No free air. No significant fluid collection. Vasculature: Moderate atherosclerotic calcification of the aorta and major branch vessels without aneurysm. Lymph nodes: Unremarkable. No enlarged lymph nodes. Urinary bladder: Moderate distension of the urinary bladder despite Wallace catheter placement. Reproductive: Unremarkable as visualized. Bones/joints: Unremarkable. No acute fracture. Soft tissues: Unremarkable. CT/CT chest abdpel w/*[id number] IMPRESSION: No identified acute pathology within the chest. IMPRESSION: 1. No identified acute pathology within the abdomen or pelvis. 2. Moderate distension of the urinary bladder despite Wallace catheter placement, question catheter malfunction.
--- NOTE | 2025-01-15 18:59 | CTR_ITS ---
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 Radiation optimization: All CT scans at this facility use at least one of these dose optimization techniques: automated exposure control; mA and/or kV adjustment per patient size (includes targeted exams where dose is matched to clinical indication); or iterative reconstruction. COMPARISON: CT lung screening [id number] 07/19/2023 10:17 AM RADIATION DOSE METRICS: Total DLP (mGy-cm): 1102.8 FINDINGS: Bones/joints: Vertebral body heights maintained. Vertebral alignment anatomic. Mild facet arthropathy. No identified central canal narrowing or significant neural foraminal narrowing. Soft tissues: Unremarkable. CT/CT thoracic spin wo con* [id number] IMPRESSION: Mild thoracic spondylosis without visualized acute abnormality.
--- NOTE | 2025-01-15 18:59 | CTR_ITS ---
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 Radiation optimization: All CT scans at this facility use at least one of these dose optimization techniques: automated exposure control; mA and/or kV adjustment per patient size (includes targeted exams where dose is matched to clinical indication); or iterative reconstruction. COMPARISON: [place] [id number] 07/17/2016 7:41 PM RADIATION DOSE METRICS: Total DLP (mGy-cm): 1017.2 FINDINGS: Bones/joints: Old, healed compression deformity of the superior endplate of L2, unchanged from comparison exam in June 2016. Remaining vertebral body heights maintained. Vertebral alignment anatomic. [id number] facet arthropathy. No central canal narrowing or significant neural foraminal narrowing. Soft tissues: Unremarkable. CT/CT lumbar spine wo con* [id number] IMPRESSION: Chronic degenerative changes of the lumbosacral spine without identified acute abnormality.
--- NOTE | 2025-01-15 19:05 | CTR_ITS ---
PROCEDURE INFORMATION: Exam: CTA Neck With Contrast Exam date and time: 01/15/2025 7:21 PM Age: 69 years old Clinical indication: Injury or trauma; Fall; Blunt trauma; Additional info: Spinal cord injury, paralyzed below c4 TECHNIQUE: Imaging protocol: Computed tomographic angiography of the neck with contrast. Exam focused on the cervical segments of the vasculature. 3D rendering (Not supervised by radiologist): MIP and/or 3D reconstructed images were created by the technologist. Radiation optimization: All CT scans at this facility use at least one of these dose optimization techniques: automated exposure control; mA and/or kV adjustment per patient size (includes targeted exams where dose is matched to clinical indication); or iterative reconstruction. Contrast material: OMNIPAQUE; Contrast volume: 80 ml; Contrast route: INTRAVENOUS (IV); COMPARISON: CT cervical spin wo con* [id number] 01/15/2025 7:13 PM RADIATION DOSE METRICS: Total DLP (mGy-cm): 164.57 FINDINGS: Right common carotid artery: No stenosis. No dissection or occlusion. Right internal carotid artery: No stenosis of the extracranial segment. No dissection or occlusion. Right external carotid artery: No occlusion or stenosis of the origin. Left common carotid artery: No stenosis. No dissection or occlusion. Left internal carotid artery: No stenosis of the extracranial segment. No dissection or occlusion. Left external carotid artery: No occlusion or stenosis of the origin. Right vertebral artery: No stenosis. No dissection or occlusion. Left vertebral artery: No stenosis. No dissection or occlusion. Soft tissues: Normal. No significant soft tissue swelling. Bones/joints: Multilevel degenerative disc disease. There is moderate central and severe left lateral recess stenosis at C3-C4 and moderate spinal canal stenosis at C5-C6 and high-grade lateral recess stenosis. CT/CT angio neck [id number] IMPRESSION: No vascular abnormality. REFERENCES: NASCET CRITERIA. The degree of stenosis in the cervical segment of the internal carotid artery is based on NASCET criteria. Normal is no stenosis. Mild is less than 50% stenosis. Moderate is 50-69% stenosis. Severe is 70% to 99% stenosis. Total occlusion is no detectable patent lumen.
--- OUTSIDE RECORDS SUMMARY | 2025-01-15 19:06 | XMS_ITS | Encounter Summary ---
Author Organization [facility] Address [address] [place] [address] Care Team Providers Care Commissary Helper Name Role Phone Unavailable Primary Care Provider Unavailabl e Encounter Details Date Type Department Care Team (Late st Contact Info) Description 01/23/2006 Emergency [facility] Emergency Department [address] 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 Gender Identity Not on file Sexual Orientation Not on file documented as of this encounter Plan of Treatment Not on file documented as of this encounter Procedures Procedure Name Priority Date/Time Associated Diagnosis Comments CT CERVICAL SPINE WO CONTRAST Routine 01/23/2006 4:[address] HEAD WO CONTRAST Routine 01/23/2006 4 :06 PM CDT XR CHEST PA OR AP 1 VW Routine 01/23/2006 4:06 PM CDT CBC WITH DIFFERENTIAL Routine 01/23/2006 1:00 PM CDT PROTIME-INR Routine 01/23/2006 1:00 PM CDT ETHANOL LEVEL Routine 01/23/2006 1:00 PM CDT BASIC METABOLIC PANEL Routine 01/23/2006 1:00 PM CDT documented in this encounter Results * XR CHEST PA OR AP (01/23/2006 4:06 PM CDT) Anatomical Region Laterality Modality Chest Other 01/23/2006 4:06 PM CDT Narrative 01/23/2006 4:06 PM CDT AP Portable Chest: 01/23/2006 at 1612Comparisons: None. Clinical History: Head injury. Findings: Patient is seen overlying a radiopaque trauma board. Heart size and mediastinal silhouetteappear within normal limits. Lungs are clear without evidence for effusion, edema or infiltrates. No evidence for pneumothorax. No gross fractures are identified. Impressions: No acute cardiopulmonary disease. - Dictated By: Herve Rashid M.D., Ph.D. Electronically Signed By: Herve Rashid M.D., Ph.D. Date Signed: 01/23/06 Procedure Note 03/21/2009 AP Portable Chest: 01/23/2006 at 1612Comparisons: None. Clinical History: Head injury. Findings: Patient is seen overlying a radiopaque trauma board. Heart size andmediastinal silhouetteappear within normal limits. Lungs are clear without evidence for effusion, edema orinfiltrates. No evidence for pneumothorax. No gross fractures are identified. Impressions: No acute cardiopulmonary disease. - Dictated By: Herve Rashid M.D., Ph.D. Electronically Signed By: Herve Rashid M.D., Ph.D. Date Signed: 01/23/06 Kulwant Gerber MD DIAGNOSTIC IMAGING ORDERABLES Fi nal Result * CT CERVICAL SPINE WO CONTRAST (01/23/2006 4:06 PM CDT) Anatomical Region Laterality Modality Spine Other 01/23/2006 4:06 PM CDT Narrative 01/23/2006 4:[address] Cervical Spine: 01/23/2006Comparisons: None. Clinical History: Head injury. Neck pain. Tree limb fell on patient. Technique: Examination consists of a noncontrast helical CT scan of the cervical spine performed fromthe base of the skull through top of T2 vertebral level on a GE Vinjape[employer] [address] No IV contrast was used. In addition to axial acquisition images, coronal and sagittal reformationimages are provided for review. Findings: Moderate disc space narrowing is present at C5-6 disc level. Mild grade I retrolisthesis ofC5 on C6 is identified measuring 2 mm. No fractures are identified. Remaining intravertebral discheights appear within normal limits. Facets are unremarkable. Spinal canal is widely patent. Neuralforamina are unremarkable. Soft tissues are radiographically unremarkable. Impressions: Moderate disc space narrowing at C5-6 with mild grade I retrolisthesis of C5 on 6. Nofractures are identified. - Dictated By: Herve Rashid M.D., Ph.D. Electronically Signed By: Herve Rashid M.D., Ph.D. Date Signed: 01/23/06 Procedure Note 03/21/2009 CT Cervical Spine: 01/23/2006Comparisons: None. Clinical History: Head injury. Neck pain. Tree limb fell on patient. Technique: Examination consists of a noncontrast helical CT scan of the cervicalspine performed fromthe base of the skull through top of T2 vertebral level on a [employer]down 16 helical [address]scanner. No IV contrast was used. In addition to axial acquisition images, coronaland sagittal reformationimages are provided for review. Findings: Moderate disc space narrowing is present at C5-6 disc level. Mild grade Iretrolisthesis ofC5 on C6 is identified measuring 2 mm. No fractures are identified. Remainingintravertebral discheights appear within normal limits. Facets are unremarkable. Spinal canal is widelypatent. Neuralforamina are unremarkable. Soft tissues are radiographically unremarkable. Impressions: Moderate disc space narrowing at C5-6 with mild grade I retrolisthesis ofC5 on 6. Nofractures are identified. - Dictated By: Herve Rashid M.D., Ph.D. Electronically Signed By: Herve Rashid M.D., Ph.D. Date Signed: 01/23/[address] ORDERABLES Final Result * CT HEAD WO CONTRAST (01/23/2006 4:06 PM CDT) Anatomical Region Laterality Modality Head Other 01/23/2006 4:06 PM CDT Narrative 01/23/2006 4:[address] Head Without IV Contrast: 01/23/2006Comparisons: None. Clinical History: Head injury. Tree limb fell on patient. Technique: Examination consists of a noncontrast CT scan of the head performed on a [employer]down 16CT scanner. No IV contrast was used. Findings: Ventricles and sulci are unremarkable in appearance. There is no evidence for acute shift,mass, bleed or hydrocephalus. No extra-axial lesions are identified. Visualized paranasal sinusesand mastoid air cells are unremarkable. No fractures are identified. Impressions: Unremarkable noncontrast CT scan of the head. - Dictated By: Herve Rashid M.D., Ph.D. Electronically Signed By: Herve Rashid M.D., Ph.D. Date Signed: 01/23/06 Procedure Note 03/21/2009 CT Head Without IV Contrast: 01/23/2006Comparisons: None. Clinical History: Head injury. Tree limb fell on patient. Technique: Examination consists of a noncontrast CT scan of the head performed on aGE [employer]ees 16CT scanner. No IV contrast was used. Findings: Ventricles and sulci are unremarkable in appearance. There is no evidencefor acute shift,mass, bleed or hydrocephalus. No extra-axial lesions are identified. Visualized paranasalsinusesand mastoid air cells are unremarkable. No fractures are identified. Impressions: Unremarkable noncontrast CT scan of the head. - Dictated By: Herve Rashid M.D., Ph.D. Electronically Signed By: Herve Rashid M.D., Ph.D. Date Signed: 01/23/[address] ORDERABLES Final Result * PROTIME-INR (01/23/2006 1:00 PM CDT) PROTIME 14.4 12.6 - 14.9 Secs INTERFACE SYSTEM Comment: As of 05 note change in normal range. INR 1.1 INTERFACE SYSTEM Comment: Expected Values for INR: DVT/PE Goal INR 2.5; range 2.0 - 3.0 Valve Replacement Tissue Goal INR 2.5; range 2.0 - 3.0 Mechanical Goal INR 3.0; range 2.5 - 3.5 POST-NJ Goal INR 2.5; range 2.0 - 3.0 or Goal 3.0; range 2.5 - 3.5 Atrial Fibrillation Goal INR 2.5; range 2.0 - 3.0 Ischemic Stroke Goal INR 2.5; range 2.0 - 3.0 For additional information see Guidelines for Anticoagulation available from the pharmacy Gaudencio Rouse 01/23/2006 1:00 PM CDT us Kulwant Gerber MD HEMATOLOGY ORDERABLES Final Resu lt INTERFACE SYSTEM Refer to clinic/hospital department * CBC WITH DIFFERENTIAL (01/23/2006 1:00 PM CDT) WBC 5.0 4.8 - 10.8 K/ul INTERFACE SYSTEM RBC 4.92 4.60 - 6.20 Mil/ul INTERFACE SYSTEM HEMOGLOBIN 15.1 14.0 - 18.0 g/dL INTERFACE SYSTEM HEMATOCRIT 44.2 41.0 - 53.0 % INTERFACE SYSTEM MCV 89.8 84.0 - 103.0 Fl INTERFACE SYSTEM MCH 30.7 27.0 - 34.0 pg INTERFACE SYSTEM MCHC 34.2 30.0 - 35.0 g/dL INTERFACE SYSTEM RDW 12.9 11.0 - 14.5 % INTERFACE SYSTEM PLATELETS 220 140 - 440 K/ul INTERFACE SYSTEM MPV 11.0 8.9 - 12.8 Fl INTERFACE SYSTEM NEUTROPHILS 61.9 42.2 - 75.2 % INTERFACE SYSTEM LYMPHOCYTES 30.5 24.0 - 44.0 % INTERFACE SYSTEM MONOCYTES 4.8 2.0 - 10.0 % INTERFACE SYSTEM EOSINOPHILS 2.6 0.0 - 7.0 % INTERFACE SYSTEM BASOPHILS 0.2 0.0 - 1.0 % INTERFACE SYSTEM NEUTROPHIL ABSOLUTE 3.1 2.0 - 8.0 K/uL INTERFACE SYSTEM LYMPHOCYTE ABSOLUTE 1.5 1.2 - 4.0 K/ul INTERFACE SYSTEM MONOCYTE ABSOLUTE 0.2 0.1 - 0.6 K/ul INTERFACE SYSTEM EOSINOPHIL ABSOLUTE 0.1 0.0 - 0.7 K/ul INTERFACE SYSTEM BASOPHILS ABSOLUTE 0.0 0.0 - 0.2 K/ul INTERFACE SYSTEM 01/23/2006 1:00 PM CDT Kulwant Gerber MD HEMATOLOGY ORDERABLES Final Resu lt Performing Organization Address [facility] Phone Number INTERFACE SYSTEM Refer to clinic/hospital department * (ABNORMAL) ETHANOL LEVEL (01/23/2006 1:00 PM CDT) ETHANOL 22(H) <=10 mg/dL INTERFACE SYSTEM 01/23/2006 1:00 PM CDT Kulwant Gerber MD CHEMISTRY ORDERABLES Final Resul t Performing Organization Address [facility] Number INTERFACE SYSTEM Refer to clinic/hospital department * (ABNORMAL) BASIC METABOLIC PANEL (01/23/2006 1:00 PM CDT) GLUCOSE 109 70 - 110 mg/dL INTERFACE SYSTEM BUN 12 9 - 20 mg/dL INTERFACE SYSTEM CREATININE 1.0 0.7 - 1.5 mg/dL INTERFACE SYSTEM SODIUM 148(H) 136 - 145 mEq/L INTERFACE SYSTEM POTASSIUM 3.6 3.5 - 5.0 mEq/L INTERFACE SYSTEM CHLORIDE 109 95 - 110 mEq/L INTERFACE SYSTEM CO2 28 22 - 32 mmol/l INTERFACE SYSTEM ANION GAP 15 9 - 20 mEq/L INTERFACE SYSTEM OSMOLALITY, CALCULATED 302(H) 275 - 295 mOsm/Kg INTERFACE SYSTEM CALCIUM 9.5 8.4 - 10.5 mg/dL INTERFACE SYSTEM 01/23/2006 1:00 PM CDT us Kulwant Gerber MD CHEMISTRY ORDERABLES Final Resul t Performing Organization Address [facility] Phone Number INTERFACE SYSTEM Refer to clinic/hospital department documented in this encounter Visit Diagnoses Diagnosis Concussion with loss of consciousness of 30 minutes or less- Primary documented in this encounter
--- OUTSIDE RECORDS SUMMARY | 2025-01-15 19:06 | XMS_ITS | Patient Health Record ---
Author Organization [facility] Address [address] [address] Care Team Providers Care Consulting Services Associate Name Role Phone Anurag Barber MD Primary Care Provider Heather callaway Migration, Provider Unavailable Unavailable Reason For Referral No Information Medications Medication SIG (Take, Route, Frequency, Duration) Notes Start Date End Date Status trazodone *Reorder from Me dispan for eRx and Interaction Alerts* Active atorvastatin *Reorder from [place] dispan for eRx and Interaction Alerts* Active buPROPion HCl *Pick strength-f orm from Medispan for eRX* Active Plavix *Pick strength-f orm from Medispan for eRX* Active Gabapentin *Pick strength-f orm from Medispan for eRX* Active Citalopram *Reorder from Me dispan for eRx and Interaction Alerts* Active Baclofen *Pick strength-f orm from Medispan for eRX* Active Cetirizine *Reorder from Me dispan for eRx and Interaction Alerts* Active Social History Social History Additional Details Category Social Info Options Details Migrated Social History Migrated Social History Alcoholic beverages? - No, Currently on disability? - Yes, Drug or substance abuse? - No, Marital Status - single, Nonprescription drug use? - No, Smoking - 1 PPD, Working currently? - No Encounters Encounter Location Date Provider Diagnosis Migrated_Facility 0 0 02/25/2024 Provider Migration Migrated_Facility 0 0 02/26/2024 Provider Migration Plan Of Treatment No Information Insurance Providers Payer Name Payer Address Payer Phone Subscriber Number Group Number Insured Name Patient Relationship to Insured Coverage Start Date Coverage End Date Professional Credit [employer] [address] [place] [address] LYLY BALBUENA Self - patient is the insured Medical (General) History Surgical History Surgery Date(Month/Year) Cardiac Stent
--- OUTSIDE RECORDS SUMMARY | 2025-01-15 19:06 | XMS_ITS | Clinical Summary ---
Author Organization [employer] 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
[2025-01-15 19:16] LABS: Hematocrit 41.3 % (37-53); Hemoglobin 14.10 g/dL (11.27-16.99); Mean Corpuscular HGB Conc 34.1 g/dL (30-55); Mean Corpuscular Hemoglobin 30.4 pg (27-33); Mean Corpuscular Volume 89.0 fl (82-101); Nucleated Red Blood Cells % 0 %; Platelet Count 224 10^3/cmm (157-399); Red Blood Count 4.64 10^6/uL (3.85-5.65); White Blood Count 6.19 10^3/uL (3.29-11.43)
[2025-01-15 19:19] LABS: Glucose Urine UA Trace (Normal); Nitrate Urine Negative (Negative); Specific Gravity, Urine 1.014 (1.005-1.030)
[2025-01-15] MEDS: iohexol 350 mg/mL 500 mL Btl (per mL) IV (19:20)
--- NOTE | 2025-01-15 19:23 | ED_ITS ---
HPI - Trauma 2 General: Chief Complaint: Trauma Stated Complaint: Fall Time Seen by Provider: 01/15/25 18:59 History of Present Illness: Patient presenting to the emergency department brought in by EMS, was found down after period of loss of consciousness leading to a ground-level fall, per EMS patient was found down unconscious and appeared to be agonal he breathing, had small pupils and was given Narcan 1 mg but reports that he regained consciousness as the Narcan was being administrated, he has since maintained consciousness and was brought here because they were unable to fly to a trauma center due to weather and delay. Patient reports that he has been passing out 3-4 times a day for the last 2 weeks, he reports lightheadedness, he reports pain all over, he reports a sensation of coldness and numbness from his collarbones down and cannot feel his arms or legs, per EMS he was unable to move his fingers or toes, they did note some intermittent tingling movements of the toes, c-collar in place on arrival. Related Data Home Medications ?Medication ?Instructions ?Recorded ?Confirmed aspirin 81 mg tablet,delayed 81 mg PO DAILY 10/13/19 1 06/28/23 release Held on 06/27/23. Instructions: Resume on 07/05/23. albuterol sulfate 90 mcg/actuation 2 puff inhalation Q ID PRN 04/27/24 04/27/24 aerosol inhaler Shortness Of Breath Or Wheez ing mupirocin 2 % topical ointment 1 applic topical BID WV N skin 04/27/24 04/27/24 infection Previous Rx's ?Medication ?Instructions ?Recorded cetirizine 10 mg tablet (Zyrtec) 10 mg PO DAILY #90 ta bs 03/06/24 chlorhexidine gluconate 0.12 % 15 ml buccal BID #473 m L 03/06/24 mouthwash clopidogrel 75 mg tablet (Plavix) 75 mg PO QDAY #90 ta bs 03/06/24 epinephrine 0.3 mg/0.3 mL 0.3 mg (0.3 mL) IM ONCE PRN 03/06/24 injection, auto-injector (EpiPen anaphylaxis sting #2 ea 2-Juan) icosapent ethyl 1 gram capsule 2 g (2 x 1 gram) PO BID #120 caps 03/06/24 (Vascepa) nitroglycerin 0.4 mg sublingual 0.4 mg sublingual Q5M PRN chest 03/06/24 tablet (Nitrostat) pain #25 tabs evolocumab 140 mg/mL subcutaneous 140 mg SUBCUT .every 14 days #2 mL 05/14/24 pen injector (Repmicaha Albert[place]) atorvastatin 40 mg tablet 40 mg PO DAILY #90 tabs 05/26 baclofen 20 mg tablet 10 mg (1/2 x 20 mg) PO BID P RN 11/30/24 muscle spasm 90 days #90 tabs citalopram 20 mg tablet (Celexa) 20 mg PO BEDTIME #90 tabs 11/30/24 gabapentin 600 mg tablet 600 mg PO BID pain #180 tabs 11/30/24 trazodone 100 mg tablet 100 mg PO BEDTIME #90 tabs 0 11/30/24 hydrocodone 10 mg-acetaminophen 1 tab PO QID PRN pain 30 days #120 01/02/25 325 mg tablet tabs doxycycline hyclate 100 mg capsule 100 mg PO BID COPD #20 caps 01/11/25 prednisone 20 mg tablet 20 mg PO DAILY lung inflamma tion 01/11/25 10 days #10 tabs promethazine-DM 6.25 mg-15 mg/5 mL 5 ml PO Q4H PRN cou gh #473 mL 01/11/25 oral syrup Allergies Allergy/AdvReac Type Severity Reaction Status Date / Time venom-wasp Allergy swelling Verified 01/11/25 08:24 [facility] ED 2 PFSH: Medical History History of compression fracture of spine Personal history of nicotine dependence Inability to maintain erection Anxiety, generalized Nicotine dependence Dyslipidemia Encounter for long-term use of opiate analgesic Allergic rhinitis due to pollen Essential (primary) hypertension Chronic obstructive pulmonary disease, unspecified Chronic kidney disease, stage 2 (mild) Atherosclerotic heart disease of [place] coronary artery without angina pectoris Opioid contract 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 Surgical History H/O eye surgery Stented coronary artery Status post for stent most recent 2018 Family History Other Cancer Diabetes Social History Smoking and tobacco/nicotine status: current every day tobacco/nicotine user cigarettes Packs smoked per day: 0.5 Years cigarettes smoked: 42 Quit status (tobacco/nicotine): considering quitting Second hand smoke exposure: Yes Alcohol intake: never Substance/Drug Use: never Adopted: No Caregiver/support person: No Lives independently: Yes Household members: significant other and children Housing: House Marital status: / service: No Current occupational status: disabled Do you think of yourself as: Straight/Heterosexual Current gender identity: Male Physical Exam 2 Narrative: EXAM NARRATIVE: Gen: A&Ox4, nontoxic-appearing HEENT: Normocephalic, no scalp hematoma or laceration, no palpable depressed skull fracture, there is tenderness to palpation of the cervical spine on turning of the patient (full C-spine precautions were maintained throughout the evaluation), cervical collar in place on arrival and appropriately placed/positioned no scleral icterus, external ears normal, moist mucous membranes Neck: Immobilized in cervical collar, tender to the palpation of the back, no swelling or fullness of the anterior lateral neck, no crepitus Lungs: No Respiratory distress, Lungs clear to auscultation bilaterally no rales, rhonchi, wheezing, equal chest rise bilaterally CV: Regular rate and rhythm, no murmur, no pitting edema to lower extremities bilaterally, patient with no sensation below the clavicles Abdomen: Soft, nondistended, anesthetize to palpation MSK: No joint swelling, no volitional movement all 4 extremities, no response to pain, somewhat hyperreflexic to the bilateral patellar tendon reflex testing, no pelvic instability, no obvious deformities or swelling to the bilateral upper or lower extremities, normal passive range of motion Skin: No rashes, petechiae, lesions. Normal color per patient, poorly healed scar to the left knee from an old chainsaw wound Neuro: Alert and oriented, no slurred speech, no sensation or movement below the clavicle, no withdraw to pain all 4 extremities, rectal tone appears intact but unable to clench volitionally, no blood on glove Psych: Appropriate for situation. Course 2 Reevaluation(s): Reevaluation #1: Patient reevaluated at this time, he has regained some sensation to the bilateral upper and lower extremities but still has a lot of tingling paresthesias and decreased sensation, his motor exam is also somewhat improving he is able to minimally move his fingers and toes, but is unable to maintain antigravity to any of his [address] scan was read as chronic degenerative changes with significant canal stenosis of the mid cervical region without acute fracture by radiology, at this time suspect spinal contusion however occult spinal cord injury is certainly a consideration given his degenerative changes and patient will need to be evaluated with MRI and neurosurgical evaluation for consideration of anterior cord syndrome Time: 20:00 Consultations: Consultation #1: Spoke with ER doctor at [facility] Dr. Leone, he accepts patient for transfer after completion of imaging, does recommend we reach out to the neurosurgeon on-call at his institution which I will do after I obtain spinal imaging, but will arrange for transfer without delay given we have accepting physician and he has clear need for transfer to a facility with trauma and neurosurgical capabilities that we do not have. Time: 19:15 Consultation #2: Spoke with neurosurgeon at [facility] Dr. Hogan, he also accepts patient for transfer to be evaluated by trauma team for spinal cord injury without radiographic abnormality (SCIWORA), for mri and further evaluation. Vital Signs: Vital signs: Vital Signs Temperature 99.1 F 01/15/25 18:44 Pulse Rate 79 01/15/25 18:44 Respiratory Rate 16 01/15/25 18:44 Blood Pressure 129/86 01/15/25 18:44 Pulse Oximetry 98 01/15/25 18:44 Oxygen Delivery Me thod Nasal Cannula 01/15/25 18:44 MDM - Trauma Medical Decision Making 69-year-old male history of hypertension, seizure, COPD, CAD with multiple stents on aspirin/Plavix, chronic pain on hydrocodone prescribed which he reports compliance with and no extra doses of, presenting with recurrent syncope and lightheadedness over the last 2 weeks, unclear if syncopal versus seizure, patient was found down after ground-level fall with paralysis of his bilateral upper and lower extremities, patient with no sensation to the back or chest below the level of the clavicle/lower cervical region, suspect mid to high cervical spinal injury C4-C6 range, currently patient appears to be saturating well with normal chest wall movement bilaterally and does not appear to have a significant paralysis of the diaphragm, does not appear to need an emergent airway, plan for guthrie scan, CTA neck to assess for vascular injury, transfer to trauma center for neurosurgical care after rule out of any immediate threat such as intracerebral hemorrhage, pneumothorax that could necessitate airway or breathing control/emergent interventions prior to transfer. DDx spinal cord transection, cervical spinal fracture with spinal shock, intracerebral hemorrhage, pneumothorax, diaphragmatic paralysis/impending respiratory failure. Lab Data 01/15/25 19:05 01/15/25 19:05 Radiology Impressions Cervical Spine CT 01/15/25 18:59 IMPRESSION: No cervical spine fracture is identified. Chest/Abdomen/Pelvis CT 01/15/25 18:59 IMPRESSION: No identified acute pathology within the chest. IMPRESSION: 1. No identified acute pathology within the abdomen or pelvis. 2. Moderate distension of the urinary bladder despite Wallace catheter placement, question catheter malfunction. Head CT 01/15/25 18:59 IMPRESSION: No acute intracranial abnormality. Lumbar Spine CT 01/15/25 18:59 IMPRESSION: Chronic degenerative changes of the lumbosacral spine without identified acute abnormality. Thoracic Spine CT 01/15/25 18:59 IMPRESSION: Mild thoracic spondylosis without visualized acute abnormality. Neck CTA 01/15/25 19:05 IMPRESSION: No vascular abnormality. REFERENCES: NASCET CRITERIA. The degree of stenosis in the cervical segment of the internal carotid artery is based on NASCET criteria. Normal is no stenosis. Mild is less than 50% stenosis. Moderate is 50-69% stenosis. Severe is 70% to 99% stenosis. Total occlusion is no detectable patent lumen. Laboratory Results WBC 6.19 10^3/uL (3.29-11.43) 01/15/25 19:05 RBC 4.64 10^6/uL (3.85-5.65) 01/15/25 19:05 Hgb 14.10 g/dL (11.27-16.99) 01/15/25 19:05 Hct 41.3 % (37-53) 01/15/25 19:05 MCV 89.0 fl (82-101) 01/15/25 19:05 MCH 30.4 pg (27-33) 01/15/25 19:05 MCHC 34.1 g/dL (30-55) 01/15/25 19:05 RDW 13.4 % (12.1-15.1) 01/15/25 19:05 Plt Count 224 10^3/cmm (157-399) 01/15/25 19:05 MPV 10.1 fL (7.4-10.4) 01/15/25 19:05 Neut % (Auto) 76.1 % 01/15/25 19:05 Lymph % (Auto) 19.2 % 01/15/25 19:05 [place] % (Auto) 4.0 % 01/15/25 19:05 Eos % (Auto) 0.0 % 01/15/25 19:05 Baso % (Auto) 0.2 % 01/15/25 19:05 Neut # (Auto) 4.71 10^3/uL (1.8-7.7) 01/15/25 19:05 Lymph # (Auto) 1.2 10^3/uL (0.8-4.8) 01/15/25 19:05 [place] # (Auto) 0.3 10^3/uL (0.2-0.9) 01/15/25 19:05 Eos # (Auto) 0.0 10^3/uL (0.0-0.8) 01/15/25 19:05 Baso # (Auto) 0.0 10^3/uL (0.0-0.1) 01/15/25 19:05 Nucleated RBC % (auto) 0 % 01/15/25 19:05 Nucleated RBCs # 0.0 /100WBC 01/15/25 19:05 PT 12.70 SECONDS (12.1-14.9) 01/15/25 19:05 INR 0.89 (0.8-1.2) 01/15/25 19:05 POC Glucose 221 mg/dL (70-110) H 01/15/25 19:00 Troponin T Baseline < 6 ng/L (0-15) 01/15/25 19:05 Urine Color Yellow (Yellow) 01/15/25 19:10 Urine Appearance Clear (CLEAR) 01/15/25 19:10 Urine pH 5.5 (5-7) 01/15/25 19:10 Ur Specific [place] 1.014 (1.005-1.030) 01/15/25 19:10 Urine Protein Negative (Negative) 01/15/25 19:10 Urine Glucose (UA) Trace (Normal) H 01/15/25 19:10 Urine Ketones Negative (Negative) 01/15/25 19:10 Urine Blood Negative (Negative) 01/15/25 19:10 Urine Nitrate Negative (Negative) 01/15/25 19:10 Urine Bilirubin Negative (Negative) 01/15/25 19:10 Urine Urobilinogen 1.0 mg/dL (Negative) 01/15/25 19:10 Ur Leukocyte Esterase Negative (Negative) 01/15/25 19:10 Urine RBC 3-5 /hpf (0-2) 01/15/25 19:10 Urine WBC 0-5 /hpf (0-5) 01/15/25 19:10 Ur Squamous Epith Cells 0-5 /hpf (0-5) 01/15/25 19:10 Amorphous Sediment Not Reportable 01/15/25 19:10 Urine Bacteria None seen /hpf (NONE) 01/15/25 19:10 Hyaline Casts 0.40 /lpf 01/15/25 19:10 Urine Opiates Screen Negative ng/mL (Negative) 01/15/25 19:15 Ur Barbiturates Screen Negative ng/mL (Negative) 01/15/25 19:15 Ur Phencyclidine Scrn Negative ng/mL (Negative) 01/15/25 19:15 Ur Amphetamines Screen Negative ng/mL (Negative) 01/15/25 19:15 U Benzodiazepines Scrn Negative ng/mL (Negative) 01/15/25 19:15 Urine Cocaine Screen Negative ng/mL (Negative) 01/15/25 19:15 U Marijuana (THC) Screen Negative ng/mL (Negative) 01/15/25 19:15 All radiology interpretation(s) finalized by discharge ED provider radiology interpretation(s): CT head no acute fracture or hemorrhage intracranially, CT cervical thoracic and lumbar spine with degenerative changes most notably in the C4 C3 region but without acute fracture, there is significant lateral canal stenosis and spinal stenosis noted Discharge Plan Discharge Patient Disposition: Xfer Short-Term Hosp Clinical Impression: Cervical spinal cord injury Qualifiers: Encounter type: initial encounter Qualified Code(s): S14.109A - Unspecified injury at unspecified level of cervical spinal cord, initial encounter Syncope Qualifiers: Syncope type: unspecified Qualified Code(s): R55 - Syncope and collapse Condition: Serious Referrals: Emmett Holman DO [Primary Care Provider, Family Practice] Print Language: Sinhala Coding Level of Care Code ED Director Of Labor And Delivery for Ju Harper
[2025-01-15 19:24] LABS: Add Urine Microscopic? YES; Universal Test for UA Present (0)
[2025-01-15 19:28] LABS: INR 0.89 (0.8-1.2); Prothrombin Time 12.70 SECONDS (12.1-14.9)
[2025-01-15 19:32] LABS: Troponin(5th) Baseline < 6 ng/L (0-15)
[2025-01-15 19:35] LABS: UA Slide Review UA Slide Review Perf
[2025-01-15 19:38] LABS: PCP Screen Urine Negative (Negative)
[2025-01-15] MEDS: morphine 4 mg/mL SDV 1 mL IVP (19:45)
[2025-01-15 21:27] LABS: Alanine Aminotransferase 17 U/L (0-41); Albumin Level 4.0 g/dL (3.5-5.2); Alkaline Phosphatase 113 U/L (40-130); Anion Gap 19.0 (5-19); Aspartate Amino Transferase 15 U/L (0-40); Blood Urea Nitrogen 13 mg/dL (8-23); Calcium 8.8 mg/dL (8.5-10.5); Carbon Dioxide 21 mmol/L (22-29); Chloride 104 mmol/L (98-107); Creatinine Clr Calc Pharmacy 72.1113; Globulin 2.7 g/dL (1.3-4.6); Glucose 189 mg/dL (65-115); Osmolality Calculated 295 mOsm/kg (285-295); Potassium 4.0 mmol/L (3.5-5.1); Sodium 140 mmol/L (136-145); Total Protein 6.7 g/dL (6.6-8.7)
[2025-01-15 21:29] LABS: Alcohol Level < 10 mg/dL (0-10)
== END 2025-01-15 20:30 | disposition short-term general hospital (02) ==
PROVIDERS: Emergency Provider Student in an Organized Health Care Education/Training Program; PCP Family Medicine
DX: S14.109A Unspecified injury at unspecified level of cervical spinal cord, initial encounter (principal); W19.XXXA Unspecified fall, initial encounter; R55 Syncope and collapse; F17.210 Nicotine dependence, cigarettes, uncomplicated; E78.5 Hyperlipidemia, unspecified; J44.9 Chronic obstructive pulmonary disease, unspecified; I25.10 Atherosclerotic heart disease of native coronary artery without angina pectoris; I12.9 Hypertensive chronic kidney disease with stage 1 through stage 4 chronic kidney disease, or unspecified chronic kidney disease; N18.2 Chronic kidney disease, stage 2 (mild)
CPT/HCPCS: 36415; 36416; 51702; 70450; 70498; 71260; 72125; 72128; 72131; 74177; 80053; 80306; 80307; 81001; 82962; 84484; 85025; 85610; 86850; 86900; 93005; 96374; 99285; J2270; J7030

== ENCOUNTER 2025-02-28 07:59 | Outpatient (RCR) | payer MEDICARE, SELFPAY | END 2025-03-01 23:59 | disposition home or self-care (01) | LOC: APO 07:59 | DX: Z74.09 Other reduced mobility (principal); Z47.89 Encounter for other orthopedic aftercare | CPT/HCPCS: 97110; 97161; 97166 ==

== ENCOUNTER 2025-03-12 16:09 | Outpatient (RCR) | payer MEDICARE, SELFPAY | END 2025-03-31 23:59 | disposition home or self-care (01) | LOC: APO 16:09 | DX: Z74.09 Other reduced mobility (principal) | CPT/HCPCS: 97110; 97112; 97530 ==

== ENCOUNTER → 2025-04-03 14:52 | Outpatient (BNVA) | payer MEDICARE, SELFPAY | PROVIDERS: Referring Provider Family Medicine; Visit Provider Internal Medicine | DX: R07.9 Chest pain, unspecified (principal) | CPT/HCPCS: 93005 ==